=== PATIENT | male | born 1955 | race Caucasian/White ===

== ENCOUNTER → 2021-04-14 10:11 | Outpatient (CLI) | payer MEDICARE, SELFPAY | PROVIDERS: Visit Provider Surgery | DX: Z01.812 Encounter for preprocedural laboratory examination (principal); Z11.52 Encounter for screening for COVID-19 | CPT/HCPCS: C9803; U0003; U0005 ==

== ENCOUNTER 2022-06-05 13:44 | Emergency (ER) | payer MEDICARE, SELFPAY ==
--- NOTE | 2022-06-05 13:46 | XR_ITS ---
FINAL REPORT CLINICAL HISTORY: Chronic left wrist pain FINDINGS: LEFT WRIST Three views demonstrate no acute fracture or dislocation. Moderate and severe degenerative changes are seen at the radial aspect of the wrist. The soft tissues are unremarkable. IMPRESSION: Degenerative change with no acute bony abnormality. Reviewed, Interpreted and Dictated by Ebenezer Foreman III, MD Transcribed by Katherin Santiago Authenticated and [facility]
[2022-06-05 14:36] VITALS: BP 124/85; PULSE 79; RESP 20; TEMP 36.4; O2SAT 99; BMI 27.6
--- NOTE | 2022-06-05 14:49 | EXP.UTC ---
Discharge Plan Disposition Patient Disposition: Home, Self-Care Condition: Good Prescriptions Prescriptions: New colchicine [Colcrys] 0.6 mg tablet 0.6 mg PO DIRECTED Qty: 3 0RF Rx Instructions: Take 1.2mg (2 Tablets) now then wait one hour and take 0.6mg (1 tab) Referrals Follow up/Referrals: Provider,Referral, [Primary Care Provider] - See instructions Activity Restrictions/Add. Instructions Additional Instructions/Restrictions: Take medication as prescribed Follow up with your Family Doctor at 1:40 tomorrow Return if needed Straight to ER if any life threatening symptoms or worsening of symptoms Clinical Impressions Clinical Impression: Pseudogout Instructions Patient Instructions: Gout, DI for Gout, Colchicine Discharge ED Provider: Maddie Santacruz [facility] General Stated complaint: LT wrist pain no accident Mode of Arrival: Ambulatory Source of Information: Patient Limitations: No Limitations Time Seen by Provider: 06/05/22 14:49 Description of Symptoms (Recalled from Triage Doc. by RN): pt c/o severe sharp (8/10) L wrist pain that radiates up to his LFA. pt denies any injurty. pt does state that he sleeps with his hand behind his head with his wrist bent at a 90 degree angle. pt states is unable to use his hand or arm without excrutiating pain. ongoing since last night. HEENT Symptoms (Recalled from RN notes): No Resp Symptoms (Recalled from RN notes): No Skin Symptoms (Recalled from RN notes): No MS Symptoms (Recalled from RN notes): Yes Functional Status (Recalled from RN notes): wnl History of Present Illness Provider Complaint: Patient state that he started having pain in his left wrist about 3 days ago but last night it got worse States that he has been having pain in his left wrist with movement States that he hasnt falling or anything but has severe pain with movement State that sometimes he does sleep with his hand behind his head and wrist bent not sure if that may have caused it Related Data Previous Rx's Medication Instructions Recorded colchicine 0.6 mg tablet (Colcrys) 0.6 mg PO DIRECTED #3 tabs 06/05/22 Allergies Allergy/AdvReac Type Severity Reaction Status Date / Time Sulfa (Sulfonamide Allergy Verified 06/05/22 14:41 Antibiotics) Worker's Comp Is this a Worker's Comp case?: No [facility] Disclaimer: The information contained in this section may have been updated after the patient was seen, as this information can be updated by other users. Medical History (Updated 06/05/22 @ 16:30 by Maddie Santacruz APRN) Hypertension Liver disease Social History Smoking Status: Unknown if ever smoked alcohol intake: never current occupational status: unemployed Travel in the last 8 weeks: None ROS Obtained: Yes All systems reviewed & no additional complaints except as documented and Yes Systems reviewed as appropriate & no additional complaints except as documented Constitutional Constitutional: Reports system reviewed and no additional complaints, except as documented and Reports as per HPI ENT Ears, Nose, Mouth, and Throat: Reports system reviewed and no additional complaints, except as documented and Reports as per HPI Cardiovascular Cardiovascular: Reports system reviewed and no additional complaints, except as documented and Reports as per HPI Respiratory Respiratory: Reports system reviewed and no additional complaints, except as documented and Reports as per HPI Musculoskeletal Musculoskeletal: Reports system reviewed and no additional complaints, except as documented and Reports as per HPI Comments: pain with movement in left wrist for 3 days worse last night Physical Exam General General appearance: alert and in no apparent distress Respiratory Respiratory exam: Present normal lung sounds bilaterally; Absent respiratory distress or wheezes Cardiovascular Cardiovascular exam: Present regular rate, normal rhythm and normal heart sound
--- NOTE | 2022-06-05 15:02 | CA_ITS ---
FINAL REPORT TECHNIQUE: Graded compression, spectral analysis and ultrasound images of the venous system of the upper extremity were obtained. CLINICAL HISTORY: RULE OUT BLOOD CLOT IN WRIST. Patient states left wrist began hurting 3 days ago with no known trauma or IV/needle sticks. He states he sleeps with his wrist in awkward position. Edema is noted in left wrist and hand. Patient had a difficult time tolerating exam secondary to pain. FINDINGS: The jugular vein, subclavian vein, axillary vein, brachial vein, cephalic vein and basilic venous system are fully compressible and demonstrate no evidence of thrombosis. IMPRESSION: No evidence of thrombosis of the venous system of the left upper extremity. Reviewed, Interpreted and Dictated by Ebenezer Foreman III, MD Transcribed by Elieser Jaramillo Authenticated and . [facility]
[2022-06-05 15:52] LABS: Uric Acid 7.7 mg/dl (3.5-8.5)
[2022-06-05 16:32] VITALS: BP 124/85; PULSE 79; RESP 20; TEMP 36.4
== END 2022-06-05 16:34 | disposition home or self-care (01) ==
PROVIDERS: Emergency Provider Nurse Practitioner
DX: M11.20 Other chondrocalcinosis, unspecified site (principal); I10 Essential (primary) hypertension
CPT/HCPCS: 73110; 84550; 93971; 99204; 99212; G0463

== ENCOUNTER 2022-06-19 14:30 | Emergency (ER) | payer MEDICARE, SELFPAY ==
[2022-06-19] VITALS (8 sets, daily range): BP systolic 96–119; BP diastolic 56–77; PULSE 74–95; RESP 16–18; TEMP 36.7–36.8; O2SAT 95–100; BMI 27.3
--- NOTE | 2022-06-19 15:10 | CA_ITS ---
FINAL REPORT TECHNIQUE: Graded compression, spectral analysis and ultrasound images of the venous system of the upper extremity were obtained. CLINICAL HISTORY: Gout with pain, swelling FINDINGS: The jugular vein, subclavian vein, axillary vein, brachial vein, cephalic vein and basilic venous system are normal, fully compressible and demonstrate no evidence of thrombosis. IMPRESSION: No evidence of thrombosis of the venous system of the left upper extremity. Reviewed, Interpreted and Dictated by Dominique Parekh MD Transcribed by Sulema Jc Authenticated and [facility]
--- NOTE | 2022-06-19 15:14 | XR_ITS ---
FINAL REPORT CLINICAL HISTORY: pain, swelling FINDINGS: Three views show no evidence of acute displaced fracture or dislocation of the visualized bony architecture. Generalized osteopenia. Questionable erosions of the 2nd DIP joint. Questionable erosions of the proximal triquetrum. Severe degenerative change of the 1st CMC joint. 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 Reviewed, Interpreted and Dictated by Dominique Parekh MD Transcribed by Elieser Jaramillo Authenticated and [facility]
--- NOTE | 2022-06-19 15:14 | XR_ITS ---
FINAL REPORT TECHNIQUE: 3 views CLINICAL HISTORY: pain, swelling COMPARISON: June 05, 2022 FINDINGS: 3 views of the left wrist were obtained. Generalized osteopenia. There is no acute fracture or dislocation. Questionable new erosions of the proximal triquetrum. Severe degenerative change of the 1st CMC joint. IMPRESSION: Questionable new erosions of the proximal triquetrum. Severe degenerative change of the 1st CMC joint. Reviewed, Interpreted and Dictated by Dominique Parekh MD Transcribed by Elieser Jaramillo Authenticated and [facility]
--- NOTE | 2022-06-19 15:24 | HMH.EDGENADL ---
Discharge Plan Disposition Chief Complaint: PAIN Prescriptions Prescriptions: No Action colchicine [Colcrys] 0.6 mg tablet 0.6 mg PO DIRECTED Qty: 3 0RF Rx Instructions: Take 1.2mg (2 Tablets) now then wait one hour and take 0.6mg (1 tab) Referrals Follow up/Referrals: Eduardo Mcpherson [Primary Care Provider] - See instructions Discharge ED Provider: Alejandra Alicia General Adult HPI General Chief complaint: PAIN Stated complaint: Possible gout LT hand Time Seen by Provider: 06/19/22 14:54 Mode of Arrival: Ambulatory Source of Information: Patient Limitations: No Limitations Description of Symptoms (Recalled from ER Triage Doc. by RN): c/o left hand pain and swelling for 2 weeks, he has seen and [facility] for this issue, had x-ray and scans, has been told it was gout flare up, give anti inflammatory. States that nothing has helped the pain History of Present Illness HPI narrative: This patient is a 67-year-old male with a history of HIV that he reports is well controlled with undetectable viral load presenting to the emergency department for evaluation with concern for severe left hand pain. He has been evaluated at twice and in the urgent treatment center here once and had work-up that was reportedly concerning for gout according to the patient. On medical record review, he had a negative DVT ultrasound of the left upper extremity. At , he reports that they did x-rays. He denies any traumatic injuries. He denies any history of gout prior to this. He denies any fevers, chills, or infectious symptoms. He states that this pain has been there for approximately 12 days. He has tried various outpatient NSAIDs and narcotic pain medications with only minimal improvement. He states that it is worse at night, and given this he is having difficulty sleeping. It is worse with anything touching it, even the bedsheet. It feels like [id number] pricking him all over his hand. He wanted to be evaluated today to see if there are any other medication options to treat his pain. On record review, it looks like he was referred to sports medicine at [facility], but has not seen them at this point. Related Data Previous Rx's Medication Instructions Recorded colchicine 0.6 mg tablet (Colcrys) 0.6 mg PO DIRECTED #3 tabs 04/25/23 Allergies Allergy/AdvReac Type Severity Reaction Status Date / Time Sulfa (Sulfonamide Allergy Verified 06/05/22 14:41 Antibiotics) [facility] Disclaimer: The information contained in this section may have been updated after the patient was seen, as this information can be updated by other users. Medical History Hypertension Liver disease Social History Smoking Status: Never smoker alcohol intake: never current occupational status: unemployed Travel in the last 8 weeks: None ROS Obtained: Yes All systems reviewed & no additional complaints except as documented 14 point review of systems obtained and negative except as mentioned in HPI. Physical Exam General General appearance: alert and in no apparent distress Head Head exam: atraumatic and normocephalic Eye Eye exam: Present normal appearance, PERRL and EOMI ENT ENT exam: Present normal exam, normal oropharynx and mucous membranes moist Neck Neck exam: Present normal inspection, full ROM and trachea midline; Absent tenderness Chest Chest inspection: Present normal inspection and symmetric chest wall rise; Absent tenderness Respiratory Respiratory exam: Present normal lung sounds bilaterally; Absent respiratory distress or wheezes Cardiovascular Cardiovascular exam: Present regular rate and normal rhythm Abdominal Exam Abdominal exam: Present soft; Absent distention, tenderness or guarding Extremities Exam Extremities exam: Present tenderness and edema (Soft tissue swelling to the left hand
[2022-06-19 15:57] LABS: Basophils % 0.3 % (0.1-2.0); Eosinophils # 0.2 K/mm3 (0.0-0.4); Eosinophils % 4.8 % (0.1-12.0); Hematocrit 30.7 % (42.0-52.0); Hemoglobin 10.4 g/dL (14.1-18.0); Lymphocytes # 1.1 K/mm3 (0.7-4.5); Mean Corpuscular HGB Conc 33.9 g/dL (31.8-35.4); Mean Corpuscular Hemoglobin 32.4 pg (27.0-31.2); Mean Corpuscular Volume 95.7 fl (80-94); Mean Platelet Volume 8.6 fl (7.4-10.4); Monocytes # 0.4 K/mm3 (0.1-1.0); Monocytes % 7.5 % (1.7-9.3); Neutrophils % 64.4 % (37.0-80.0); Platelet Count 125 K/mm3 (142-424); Red Blood Count 3.21 M/mm3 (4.60-6.20); Red Cell Distribution Width 14.5 % (11.5-17.5); White Blood Count 4.7 K/mm3 (4.8-10.8)
--- NOTE | 2022-06-19 16:07 | PC.NURSE ---
pt is at xray
[2022-06-19 16:08] LABS: Alanine Aminotransferase 27 U/L (12-78); Albumin Level 3.2 g/dl (3.5-5.0); Albumin/Globulin Ratio 0.8 (1.1-1.8); Alkaline Phosphatase 137 U/L (38-126); Anion Gap 15.4 mEq/L (5-15); Aspartate Amino Transferase 26 U/L (17-59); Bilirubin,Total 1.1 mg/dl (0.2-1.3); Blood Urea Nitrogen 15 mg/dl (9-20); Calcium 8.3 mg/dl (8.4-10.2); Carbon Dioxide 24 mmol/L (22.0-30.0); Chloride 104 mmol/L (98-107); Creatinine Clearance Estimated 76 mL/min (50-200); Estimated Glomerular Filt Rate 67 ml/min (>60); GFR (African American) 81 ML/MIN (>60); Globulin 3.8 g/dL (1.3-3.2); Glucose 114 mg/dl (74-100); Potassium 3.4 mmoL/L (3.5-5.1); Sodium 140 mmol/L (136-145); Uric Acid 6.6 mg/dl (3.5-8.5)
[2022-06-19 17:09] LABS: Erythrocyte Sedimentation Rate > 140 mm/hr (0-20)
--- NOTE | 2022-06-19 17:28 | PC.NURSE ---
checked on pt states his pain was at 12 for arrival of er now pain is at 8 relayed message to nurse and er md, call light at bs
--- NOTE | 2022-06-19 17:36 | PC.NURSE ---
Contacted MDs Hand surgeon for consult
--- NOTE | 2022-06-19 18:19 | PC.NURSE ---
nothing needed at this time,call light at bs
== END 2022-06-19 19:34 | disposition short-term general hospital (02) ==
PROVIDERS: Emergency Provider Emergency Medicine; PCP Internal Medicine Cardiovascular Disease
DX: M79.642 Pain in left hand (principal); R22.32 Localized swelling, mass and lump, left upper limb
CPT/HCPCS: 73110; 73130; 80053; 84550; 85025; 85651; 86140; 93971; 96374; 96375; 99285; J2405

== ENCOUNTER 2022-07-02 13:47 | Outpatient (CLI) | payer MEDICARE, SELFPAY ==
[2022-07-02 13:56] VITALS: BMI 25.8
[2022-07-02 14:09] LABS: Chloride 111 mmol/L (98-107)
[2022-07-02 14:10] LABS: Potassium 3.6 mmoL/L (3.5-5.1); Sodium 140 mmol/L (136-145)
[2022-07-02 14:12] LABS: Alanine Aminotransferase 18 U/L (12-78); Aspartate Amino Transferase 46 U/L (17-59); Basophils % 0.5 % (0.1-2.0); Blood Urea Nitrogen 13 mg/dl (9-20); Creatinine Clearance Estimated 57 mL/min (50-200); Eosinophils # 0.2 K/mm3 (0.0-0.4); Eosinophils % 6.3 % (0.1-12.0); Estimated Glomerular Filt Rate 51 ml/min (>60); GFR (African American) 61 ML/MIN (>60); Hematocrit 30.2 % (42.0-52.0); Hemoglobin 9.9 g/dL (14.1-18.0); Lymphocytes # 1.1 K/mm3 (0.7-4.5); Lymphocytes % 32.9 % (10-50); Mean Corpuscular HGB Conc 32.8 g/dL (31.8-35.4); Mean Corpuscular Hemoglobin 31.4 pg (27.0-31.2); Mean Corpuscular Volume 95.8 fl (80-94); Mean Platelet Volume 7.8 fl (7.4-10.4); Monocytes # 0.3 K/mm3 (0.1-1.0); Monocytes % 7.5 % (1.7-9.3); Neutrophils # 1.8 K/mm3 (1.8-7.8); Neutrophils % 52.8 % (37.0-80.0); Platelet Count 134 K/mm3 (142-424); Red Blood Count 3.15 M/mm3 (4.60-6.20); Red Cell Distribution Width 15.2 % (11.5-17.5); White Blood Count 3.5 K/mm3 (4.8-10.8)
[2022-07-02 14:13] LABS: Albumin Level 3.3 g/dl (3.5-5.0); Albumin/Globulin Ratio 0.8 (1.1-1.8); Alkaline Phosphatase 100 U/L (38-126); Anion Gap 7.6 mEq/L (5-15); Bilirubin,Total 0.4 mg/dl (0.2-1.3); Calcium 8.5 mg/dl (8.4-10.2); Carbon Dioxide 25 mmol/L (22.0-30.0); Globulin 3.9 g/dL (1.3-3.2); Glucose 114 mg/dl (74-100); Total Protein,Serum 7.2 g/dl (6.3-8.2)
[2022-07-02 14:18] LABS: C-Reactive Protein 5.6 mg/L (0-4)
== END 2022-07-02 14:10 | disposition home or self-care (01) ==
LOC: INF 13:48
PROVIDERS: Internal Medicine Infectious Disease; PCP Internal Medicine Cardiovascular Disease
DX: L08.9 Local infection of the skin and subcutaneous tissue, unspecified (principal)
CPT/HCPCS: 36592; 80053; 85025; 86140

== ENCOUNTER 2022-07-10 10:00 | Outpatient (CLI) | payer MEDICARE, SELFPAY ==
[2022-07-10 10:03] VITALS: BMI 26.1
[2022-07-10 10:39] LABS: Basophils % 0.5 % (0.1-2.0); Eosinophils # 0.1 K/mm3 (0.0-0.4); Eosinophils % 4.6 % (0.1-12.0); Hematocrit 32.1 % (42.0-52.0); Hemoglobin 10.6 g/dL (14.1-18.0); Lymphocytes # 1.2 K/mm3 (0.7-4.5); Lymphocytes % 40.8 % (10-50); Mean Corpuscular HGB Conc 32.9 g/dL (31.8-35.4); Mean Corpuscular Hemoglobin 31.1 pg (27.0-31.2); Mean Corpuscular Volume 94.5 fl (80-94); Mean Platelet Volume 8.4 fl (7.4-10.4); Monocytes # 0.2 K/mm3 (0.1-1.0); Monocytes % 6.7 % (1.7-9.3); Neutrophils # 1.4 K/mm3 (1.8-7.8); Neutrophils % 47.3 % (37.0-80.0); Platelet Count 84 K/mm3 (142-424); Red Cell Distribution Width 15.2 % (11.5-17.5); White Blood Count 2.9 K/mm3 (4.8-10.8)
[2022-07-10 10:50] LABS: Alanine Aminotransferase 15 U/L (12-78); Albumin Level 3.5 g/dl (3.5-5.0); Albumin/Globulin Ratio 0.9 (1.1-1.8); Alkaline Phosphatase 123 U/L (38-126); Anion Gap 14.4 mEq/L (5-15); Aspartate Amino Transferase 44 U/L (17-59); Bilirubin,Total 0.7 mg/dl (0.2-1.3); Blood Urea Nitrogen 8 mg/dl (9-20); Calcium 8.5 mg/dl (8.4-10.2); Carbon Dioxide 24 mmol/L (22.0-30.0); Chloride 106 mmol/L (98-107); Creatinine Clearance Estimated 80 mL/min (50-200); Estimated Glomerular Filt Rate 97 ml/min (>60); GFR (African American) 117 ML/MIN (>60); Glucose 119 mg/dl (74-100); Potassium 3.4 mmoL/L (3.5-5.1); Sodium 141 mmol/L (136-145); Total Protein,Serum 7.5 g/dl (6.3-8.2)
[2022-07-10 11:01] LABS: C-Reactive Protein 2.6 mg/L (0-4)
== END 2022-07-10 10:30 | disposition home or self-care (01) ==
LOC: INF 10:00
PROVIDERS: Internal Medicine Infectious Disease; PCP Internal Medicine Cardiovascular Disease
DX: L08.9 Local infection of the skin and subcutaneous tissue, unspecified (principal); Z51.81 Encounter for therapeutic drug level monitoring
CPT/HCPCS: 36592; 80053; 85025; 86140

== ENCOUNTER 2022-07-11 10:24 | Outpatient (CLI) | payer MEDICARE, SELFPAY ==
[2022-07-11 10:27] VITALS: BMI 26.1
[2022-07-11 11:05] LABS: Basophils % 0.5 % (0.1-2.0); Eosinophils # 0.2 K/mm3 (0.0-0.4); Eosinophils % 4.7 % (0.1-12.0); Hematocrit 32.8 % (42.0-52.0); Hemoglobin 10.6 g/dL (14.1-18.0); Lymphocytes # 1.4 K/mm3 (0.7-4.5); Lymphocytes % 41.7 % (10-50); Mean Corpuscular HGB Conc 32.4 g/dL (31.8-35.4); Mean Corpuscular Hemoglobin 31.3 pg (27.0-31.2); Mean Corpuscular Volume 96.8 fl (80-94); Mean Platelet Volume 8.8 fl (7.4-10.4); Monocytes # 0.2 K/mm3 (0.1-1.0); Monocytes % 6.4 % (1.7-9.3); Neutrophils # 1.5 K/mm3 (1.8-7.8); Neutrophils % 46.6 % (37.0-80.0); Platelet Count 81 K/mm3 (142-424); Red Blood Count 3.39 M/mm3 (4.60-6.20); Red Cell Distribution Width 15.3 % (11.5-17.5); White Blood Count 3.3 K/mm3 (4.8-10.8)
== END 2022-07-11 10:30 | disposition home or self-care (01) ==
LOC: INF 10:24
PROVIDERS: PCP Internal Medicine Cardiovascular Disease; Visit Provider Internal Medicine Cardiovascular Disease
DX: L08.9 Local infection of the skin and subcutaneous tissue, unspecified (principal); Z51.81 Encounter for therapeutic drug level monitoring; Z45.2 Encounter for adjustment and management of vascular access device
CPT/HCPCS: 36592; 85025

== ENCOUNTER 2022-07-16 09:51 | Outpatient (CLI) | payer MEDICARE, SELFPAY ==
[2022-07-16 09:56] VITALS: BMI 25.8
[2022-07-16 10:25] LABS: Basophils % 0.4 % (0.1-2.0); Chloride 107 mmol/L (98-107); Eosinophils # 0.1 K/mm3 (0.0-0.4); Eosinophils % 4.4 % (0.1-12.0); Hematocrit 31.9 % (42.0-52.0); Hemoglobin 10.7 g/dL (14.1-18.0); Lymphocytes # 1.3 K/mm3 (0.7-4.5); Lymphocytes % 48.4 % (10-50); Mean Corpuscular HGB Conc 33.4 g/dL (31.8-35.4); Mean Corpuscular Hemoglobin 31.3 pg (27.0-31.2); Mean Corpuscular Volume 93.8 fl (80-94); Mean Platelet Volume 8.9 fl (7.4-10.4); Monocytes # 0.2 K/mm3 (0.1-1.0); Monocytes % 6.7 % (1.7-9.3); Neutrophils # 1.1 K/mm3 (1.8-7.8); Neutrophils % 40.2 % (37.0-80.0); Platelet Count 55 K/mm3 (142-424); Red Cell Distribution Width 15.2 % (11.5-17.5); White Blood Count 2.8 K/mm3 (4.8-10.8)
[2022-07-16 10:26] LABS: Potassium 3.6 mmoL/L (3.5-5.1); Sodium 141 mmol/L (136-145)
[2022-07-16 10:28] LABS: Alanine Aminotransferase 14 U/L (12-78); Alkaline Phosphatase 113 U/L (38-126); Aspartate Amino Transferase 42 U/L (17-59); Bilirubin,Total 0.8 mg/dl (0.2-1.3); Blood Urea Nitrogen 11 mg/dl (9-20); Creatinine Clearance Estimated 79 mL/min (50-200); Estimated Glomerular Filt Rate 97 ml/min (>60); GFR (African American) 117 ML/MIN (>60)
[2022-07-16 10:29] LABS: Albumin Level 3.6 g/dl (3.5-5.0); Albumin/Globulin Ratio 0.9 (1.1-1.8); Anion Gap 10.6 mEq/L (5-15); Carbon Dioxide 27 mmol/L (22.0-30.0); Glucose 102 mg/dl (74-100); Total Protein,Serum 7.6 g/dl (6.3-8.2)
[2022-07-16 10:34] LABS: C-Reactive Protein 1.6 mg/L (0-4)
== END 2022-07-16 10:30 | disposition home or self-care (01) ==
LOC: INF 09:52
DX: Z51.81 Encounter for therapeutic drug level monitoring (principal)
CPT/HCPCS: 36592; 80053; 85025; 86140

== ENCOUNTER → 2022-07-24 09:45 | Outpatient (CLI) | payer MEDICARE, SELFPAY ==
[2022-07-24 10:21] LABS: Adenovirus F 40/41, stool Not Detected (NotDetected); Astrovirus Not Detected (NotDetected); Campylobacter Not Detected (NotDetected); Clostridium Difficile A/B, PCR Not Detected (NotDetected); Cryptosporidium Not Detected (NotDetected); Cyclospora Cayetanesis Not Detected (NotDetected); Entamoeba histolytica Not Detected (NotDetected); Enteroaggregative E coli Not Detected (NotDetected); Enteropathogenic E coli Not Detected (NotDetected); Enterotoxigenic E coli Not Detected (NotDetected); Giardia lamblia Not Detected (NotDetected); Norovirus Not Detected (NotDetected); Plesimonas Shigalloides, PCR Not Detected (NotDetected); Rotavirus A Not Detected (NotDetected); Salmonella, PCR Not Detected (NotDetected); Sapovirus Not Detected (NotDetected); Shiga-like toxin E coli Not Detected (NotDetected); Shigella Enterovasive E coli Not Detected (NotDetected); Vibrio Cholerae Not Detected (NotDetected); Vibrio, PCR Not Detected (NotDetected); Yersinia Entercolitica, PCR Not Detected (NotDetected)
[2022-07-31 15:27] LABS: Calprotectin, Fecal 332 ug/g (0-120)
== END ==
PROVIDERS: PCP Nurse Practitioner; Visit Provider Nurse Practitioner Family
DX: R15.9 Full incontinence of feces (principal); R19.5 Other fecal abnormalities
CPT/HCPCS: 83993; 87177; 87493; 87506

== ENCOUNTER 2022-09-14 14:00 | Outpatient (RCR) | payer MEDICARE, SELFPAY | END 2022-09-14 14:05 | disposition home or self-care (01) | LOC: OT 14:00 | PROVIDERS: Visit Provider Physician Assistant Medical | DX: M25.532 Pain in left wrist (principal); M00.9 Pyogenic arthritis, unspecified | CPT/HCPCS: 97010; 97014; 97018; 97035; 97110; 97140; 97164; 97165; 97530; G0283 ==

== ENCOUNTER 2024-10-16 10:14 | Emergency (ER) | payer MEDICARE, SELFPAY ==
--- OUTSIDE RECORDS SUMMARY | 2024-08-24 13:00 | XMS_ITS | Encounter Summary ---
Author Organization [facility] Address [address] [place] [address] Care Team Providers Care Client Care Consultant Name Role Phone Lashay Maynard Unavailable Unavailable Gracy Aguilar MD Unavailable [phone] Chuck Kaplan Unavailable [phone] Vandana Urbina MD Primary Care Provider [phone] Maria Elena Lizarraga Unavailable [phone] Reason for Visit * Reason Comments low testosterone IM Injection Encounter Details Date Type Department Care Team (Latest Contact Info) Description 08/24/2024 1:00 PM EDT Clinical Support [facility] Urology [address] [place] [address] An Matthew LPN [facility] Low testosterone in male (Primary Dx) Social History Tobacco Use Types Packs/Day Years Used Date Smoking Tobacco: Never Passive Smoke Exposure: Never Smokeless Tobacco: Never Tobacco Cessation:Counseling Given: Not Answered Alcohol Use Standard Drinks/Week Comments Yes 2 (1 standard drink = 0.6 oz pur e alcohol) occasional Humiliation, Afraid, Rape, and Kick questionnair e Answer Date Recorded Within the last year, have y ou been afraid of your partner or ex-partner? No 05/05/2024 Within the last year, have y ou been humiliated or emotionally abused in other ways by your partner or ex-partner? No Within the last year, have y ou been kicked, hit, slapped, or otherwise physically hurt by your partner or ex-partner? No 05/05/2024 Within the last year, have y ou been raped or forced to have any kind of sexual activity by your partner or ex-partner? No 05/05/2024 Social Connection and Isolation Panel Answer Date Recorded In a typical week, how many times do you talk on the phone with family, friends, or neighbors? More than three times a week 05/02/2023 How often do you get togethe r with friends or relatives? More than three times a week 05/02/2023 How often do you attend chur ch or restorationism services? Never 05/02/2023 Do you belong to any clubs o r organizations such as amish groups, unions, fraternal or athletic groups, or school groups? No 05/02/2023 How often do you attend meet ings of the clubs or organizations you belong to? Never 05/02/2023 Marital Status Not on file 05/02/2023 AUDIT-C Answer Date Recorded Q1: How often do you have a drink containing alc ohol? 2-4 times a month 05/02/2023 Q2: How many drinks containi ng alcohol do you have on a typical day when you are drinking? 1 or 2 05/02/2023 Q3: How often do you have si x or more drinks on one occasion? Never 05/02/2023 PHQ-2 Answer Date Recorded Patient Health Questionnaire-2 Score 0 08/24/2024 [facility] - Occupational Stress Questionnaire Answer Date Recorded Do you feel stress - tense, restless, nervous, or anxious, or unable to sleep at night because your mind is troubled all the time - these days? Not at all 05/02/2023 Exercise Vital Sign Answer Date Recorde d On average, how many days pe r week do you engage in moderate to strenuous exercise (like a brisk walk)? 3 days 05/02/2023 On average, how many minutes do you engage in exercise at this level? 30 min 05/02/2023 Hunger Vital Sign Answer Date Recorded Within the past 12 months, y ou worried that your food would run out before you got the money to buy more. Never true 05/06/19 Within the past 12 months, t he food you bought just didn't last and you didn't have money to get more. Never true 05/05/2024 PRAPARE - Transportation Answer Date Re corded In the past 12 months, has l ack of transportation kept you from medical appointments or from getting medications? No 04/12 In the past 12 months, has l ack of transportation kept you from meetings, work, or from getting things needed for daily living? No 05/05/2024 Housing Stability Vital Sign Answer Solomon e Recorded In the last 12 months, was t here a time when you were not able to pay the mortgage or rent on time? No 11/05/2023 In the last 12 months, how many places have you lived? 1 11/05/2023 In the last 12 months, was t here a time when you did not have a steady place to sleep or slept in a mcfp (including now)? No 11/05/2023 PHQ-9 Answer Date Recorded Patient Health Questionnaire-9 Score 0 05/12/2024 Housing Stability Vital Sign Answer Solomon e Recorded In the last 12 months, was t here a time when you were not able to pay the mortgage or rent on time? No 05/05/2024 In the past 12 months, how m any times have you moved where you were living? 0 05/05/2024 At any time in the past 12 m [facility], were you homeless or living in a mcfp (including now)? No 05/05/2024 Safety and Environment Answer Date Helder rded Do you worry that your child may have been physically abused? No 05/05/2024 Do you worry that your child may have been sexua lly abused? No 05/05/2024 Are there any guns kept in o r around your home or where your child spends time? No 05/05/2024 Guns Unloaded or Locked Away Not on file CAGE ASSESSMENT Answer Date Recorded Cage unable to access Not on file 06/20/2022 Maximum number of drinks you had on a given occasion in the last month? 0 drinks 06/20/2022 How many alcoholic Beverages do you typically drink in a week? 0 - 7 per week 06/20/2022 Have you ever felt you should CUT down on your d rinking? 0 06/20/2022 Have you been ANNOYED by peo ple criticizing your drinking? 0 06/20/2022 Have you felt GUILTY about your drinking? 0 06/20/2022 Have you had a drink first t mina in the morning ([employer]) to steady your nerves or to get rid of a hangover? 0 06/20/2022 CAGE Questionnaire Score 0 023 Utilities Answer Date Recorded In the past 12 months has th [employer], gas, oil, or water [employer] threatened to shut off services in your home? No 05/05/2024 PHQ-2A Answer Date Recorded Patient Health Questionnaire-2 Score 0 12/27/2022 Sex and Gender Information Value Date Recorded Sex Assigned at Not on file Legal Sex Male 8:00 PM EDT Gender Identity Not on file Sexual Orientation Not on file documented as of this encounter Last Filed Vital Signs Vital Sign Reading Time Taken Comments Blood Pressure 98/61 08/24/2024 1:11 PM EDT Pulse 58 08/24/2024 1:11 PM EDT Temperature - - Respiratory Rate 14 08/24/2024 1:11 PM EDT Oxygen Saturation 98% 08/24/2024 1:11 PM EDT Inhaled Oxygen Concentration - - Weight 81.2 kg (179 lb) 08/24/2024 1:11 PM EDT Height 172.7 cm (5' 8 ) 08/24/2024 1:11 PM EDT Body Mass Index 27.22 08/24/2024 1:11 PM EDT documented in this encounter Functional Status * Are you deaf or do you have serious difficulty hearing? Answer Date of Assessment Author No 06/28/2022 5:50 PM EDT Tabatha Sosa RN * Are you blind or do you have serious difficulty seeing, even when wearing glasses? Answer Date of Assessment Author No 06/28/2022 5:50 PM EDT Tabatha Sosa RN * Do you have serious difficulty walking or climbing stairs? Answer Date of Assessment Author No 06/28/2022 5:50 PM EDT Tabatha Sosa RN * Because of a physical, mental, or emotional condition, do you have serious difficulty doing errandsalone such as visiting the doctor? Answer Date of Assessment Author No 06/28/2022 5:50 PM EDT Tabatha Sosa RN * Over the past 2 weeks, how often have you been bothered by any of the following problems? Question Answer Date of Assessment Author Little interest or pleasure in doing things Not at all 08/24/2024 1:12 PM EDT An Matthew LPN Feeling down, depressed, or hopeless Not at all 08/24/2024 1:12 PM EDT An Matthew LPN Patient Health Questionnaire-2 Score 0 08/24/2024 1:12 PM EDT An Matthew LPN documented as of this encounter Mental Status * Because of a physical, mental, or emotional condition, do you have serious difficulty concentrating, remembering, or making decisions? (5 years old or older) Answer Entry Date Author No 06/28/2022 5:50 PM EDT Tabatha Sosa RN documented in this encounter Miscellaneous Notes * Progress Notes - An Matthew LPN - 08/24/2024 1:00 PM EDT Mr. Mauricio Barahona is a 69 year old male with a history of low testosterone. He presents today for his testosterone IM injection. Mr. Barahona stated he does not feel a difference since he started his injections and was told that this would be his last injection until he see Nati Judge APRN in 3 months. Mr. Barahona brought in his Testosterone Cypionate medication with him to his appointment. .25ml/5mg was drawn up and injected into his right ventrogluteal muscle by cleaning the area with an alcohol wipe. Patient tolerated without complaints. Plan: Continue as schedule for next visit with Nati Judge APRN in 3 months. Call the clinic with any questions or concerns at [phone] documented in this encounter Plan of Treatment Upcoming Encounters Date Type Department Care Team (Late st Contact Info) Description 10/19/2024 1:20 PM EDT Office Visit [facility] Medicine Specialties [address] [place] [address] Potter, Clara R, PA [address] [place] [address] 10/27/2024 10:30 AM EDT Office Visit [facility] [address] [facility] [address] [place] [address] 10/29/2024 9:30 AM EDT Office Visit [facility] Medicine Specialties [address] [place] [address] Nikkie Aguirre PA [address] [place] [address] 11/10/2024 11:00 AM EDT Office Visit [facility] Internal Medicine [address] [place] [address] Vandana Urbina MD [address] [place] [address] 11/16/2024 10:30 AM EDT Office Visit [facility] Urology [address] [place] [phone] Maria Elena Lizarraga PA [address] [place] [address] 11/19/2024 10:00 AM EDT Clinical Support [facility] Lab [address] [place] [address] 11/26/2024 9:50 AM EDT Office Visit [facility] Urology [address] [place] [phone] Nati Judge, ANIMAL BIOLOGIST, DNP [address] [place] [address] 12/08/2024 8:30 AM EDT Procedure Visit [facility] Orthopaedic Surgery & Sports Medicine [address] [place] [phone] Jonathan Armando MD [address] [place] [address] 12/17/2024 3:00 PM EST Office Visit [facility] General Surgery [address] [place] [address] Germain Botello MD [address] [place] [address] 01/11/2025 9:30 AM EST Clinical Support [facility] Lab [address] [place] [address] 01/18/2025 10:50 AM EST Office Visit [facility] Urology [address] [place] [address] Nati Judge P, ANIMAL BIOLOGIST, DNP [address] [place] [address] 01/28/2025 1:30 PM EST Office Visit [facility] [address] [facility] [address] [place] [address] Gracy Aguilar MD [address] [facility] [address] [place] [address] 03/15/2025 1:15 PM EST Office Visit [facility] [address] [place] [address] Renee Graham S, OD [address] [place] [address] 06/01/2025 11:30 AM EDT Clinical Support [place] [facility] [address] [place] [address] 06/08/2025 1:40 PM EDT Office Visit [facility] Nephrology, Bone & Mineral Metabolism [address], [address] [place] [address] Marco Brandt MD [address] [place] [address] documented as of this encounter Goals Goal Patient Goal Type Associated Problems Recent Progress Patient-Stated? Author Patient to remain active in HIV care Care Plan Treatment Adherence On track( 1:48 PM EDT) Lisette Tom Patient to remain active on part B services/RW shama-eligible Care Plan Treatment Adherence On track( 1:48 PM EDT) Lisette Tom Improve Knee Pain Care Plan Treatment Adherence On track( 1:51 PM EDT) Lisette Tom Note: Patient continues to take excellent care of his knee pain. He receives Gel Knee injections 2x per year. He reports having no knee pain. documented as of this encounter Visit Diagnoses Diagnosis Low testosterone in male- Primary documented in this encounter Additional Health Concerns Active Problems Noted Date Diagnosed Date Treatment Adherence 09/02/2024 Assessment Noted Time PHQ-9 Depression Total Score: 0 05/13/19 10:43 AM EDT A fall risk assessment has been complete d for the patient 08/24/2024 1:12 PM EDT A Body Mass Index follow-up plan has been documented for the patient 08/25/2024 7:44 AM EDT documented as of this encounter Care Teams Client Care Consultant Relationship Specialty Start Date End Date Vadnana Urbina MD [address] [place] [address] PCP - General Internal Medicine 05/02/23 [place] [address] [employer] Wedding Coordinator 05/31/21 Gracy Aguilar MD [address] [facility] [address] [place] [phone] Consulting Physician Infectious Diseases 03/26/23 Chuck Kaplan PA [address] [facility] [address] [place] [phone] Physician Physical Therapist Center Manager Infectious Diseases 03/26/23 Maria Elena Lizarraga PA [address] [facility] [address] [place] [address] Physician Physical Therapist Center Manager Urology 03/09/24 documented as of this encounter
--- OUTSIDE RECORDS SUMMARY | 2024-09-01 09:00 | XMS_ITS | Encounter Summary ---
Author Organization [facility] Address [address] [place] [address] Care Team Providers Care Macroeconomics Professor Name Role Phone Lashay Maynard Unavailable Unavailable Gracy Aguilar MD Unavailable [phone] Chuck Kaplan Unavailable [phone] Vandana Urbina MD Primary Care Provider [phone] Maria Elena Lizarraga Unavailable [phone] Reason for Referral * Other Medical (Routine) - Pending Review Specialty Diagnoses / Procedures Referred By Contac t Referred To Contact Diagnoses Primary osteoarthritis of both knees Procedures Injection - Large Joint: bilateral knee Jonathan Armando MD [address] [place] [address] Phone: tel: fax: Referral ID Status Reason Start Date Expiration Date V isits Requested Visits Authorized [id number] Pending Review 09/01/2024 03/03/2026 1 1 Reason for Visit * Reason Comments Follow-up Follow-up Encounter Details Date Type Department Care Team (Late st Contact Info) Description 09/01/2024 9:00 AM EDT Procedure Visit [facility] Orthopaedic Surgery & Sports Medicine [address], [address] [place] [address] Jonathan Armando MD [address] [place] [address] Primary osteoarthritis of both knees (Primary Dx) Social History Tobacco Use Types Packs/Day Years Used Date Smoking Tobacco: Never Passive Smoke Exposure: Never Smokeless Tobacco: Never Alcohol Use Standard Drinks/Week Comments Yes 2 [...] often do you attend chur ch or tenriism services? Never 05/02/2023 Do you belong to any clubs o r organizations such as baptist groups, unions, fraternal or athletic groups, or [...] Date Recorded Patient Health Questionnaire-2 Score 0 09/08/2024 [place] [facility] - Occupational Stress Questionnaire Answer Date Recorded [...] place to sleep or slept in a care home (including now)? No 11/05/2023 PHQ-9 Answer Date Recorded Patient Health Questionnaire-9 Score 0 09/07/2024 Housing Stability Vital Sign Answer Solomon e Recorded In the last 12 months, was t here a time when you were not able to pay the mortgage or rent on time? No 05/05/2024 In the past 12 months, how m any times have you moved where you were living? 0 05/05/2024 At any time in the past 12 m [facility], were you homeless or living in a care home (including now)? No 05/05/2024 Safety and Environment [...] drink first t mina in the morning (EYE-QUALITY MANAGEMENT NURSE) to steady your nerves or to get rid of a hangover? 0 06/20/2022 CAGE Questionnaire Score 0 023 Utilities Answer Date Recorded In the past 12 months has th [employer] electric, gas, oil, or water company threatened to shut off services in your [...] Sign Reading Time Taken Comments Blood Pressure 116/72 09/01/2024 8:35 AM EDT Pulse - - Temperature - - Respiratory Rate - - Oxygen Saturation - - Inhaled Oxygen Concentration - - Weight 81.6 kg (180 lb) 09/01/2024 8:35 AM EDT Height 172.7 cm (5' 8 ) 09/01/2024 8:35 AM EDT Body Mass Index 27.37 09/01/2024 8:35 AM EDT documented in this encounter Functional Status * Are you deaf or do you have serious difficulty hearing? Answer Date of Assessment Author No 06/28/2022 5:50 PM Tabatha Mcintyre RN * Are you blind or do you have serious difficulty seeing, even when wearing glasses? Answer Date of Assessment Author No 06/28/2022 5:50 PM Tabatha Mcintyre RN * Do you have serious difficulty walking or climbing stairs? Answer Date of Assessment Author No 06/28/2022 5:50 PM Tabatha Mcintyre RN * Because of a physical, mental, or emotional condition, do you have serious difficulty doing errandsalone such as visiting the doctor? Answer Date of Assessment Author No 06/28/2022 5:50 PM Tabatha Mcintyre RN * Over the past 2 weeks, how often have you been bothered by any of the following problems? Question Answer Date of Assessment Author Little interest or pleasure in doing things Not at all 09/08/2024 10:56 AM Dede Sykes Feeling down, depressed, or hopeless Not at all 09/08/2024 10:56 AM Dede Sykes Patient Health Questionnaire -2 Score 0 09/08/2024 10:56 AM Dede Sykes * Question Answer Date of Assessment Author Trouble falling or staying asleep, or sleeping too much Not at all 09/07/2024 10:25 AM Olu Hua Feeling tired or having louise le energy Not at all 09/07/2024 10:25 AM Brent Li Poor appetite or overeating Not at all 09/07/2024 10 :25 AM [address] Li Feeling bad about yourself - or that you are a failure or have let yourself or your family down Not at all 09/07/2024 10:25 AM Olu Kaur Trouble concentrating on thi ngs, such as reading the newspaper or watching television Not at all 09/07/2024 10:25 AM Brent Li Moving or speaking so slowly that other people could have noticed? Or the opposite - being so fidgety or restless that you have been moving around a lot more than usual. Not at all 09/07/2024 10:25 AM Brent Li Thoughts that you would be better off or hurting yourself in some way Not at all 09/07/2024 10:25 AM EDT [address]i Guzman rd Patient Health Questionnaire -9 Score 0 09/07/2024 10:25 AM EDT Brent Guzman documented as of this encounter Mental Status * Because of a physical, mental, or emotional condition, do you have serious difficulty concentrating, remembering, or making decisions? (5 years old or older) Answer Entry Date Author No 06/28/2022 5:50 PM EDT Tabatha Sosa RN documented in this encounter Miscellaneous Notes * Progress Notes - Ravin Gloria MD - 09/01/2024 9:00 AM EDTAssociated Order(s): Injection - Large Joint: bilateral knee Post-Procedure Diagnose(s): Primary osteoarthritis of both knees Procedure Note Encounter Date: 09/01/2024 Chief Complaint: Bilateral knee pain Patient is a 69 yo male who presents due to bilateral knee pain who got good relief in the past from bilateral CSI Injection - Large Joint: bilateral knee Indications: pain Details: 22 G needle, ultrasound-guided superolateral approach Medications (Right): 80 mg Kenalog-40 40 MG/ML; 20 mg bupivacaine 0.5 %; 40 mg lidocaine 1 % Medications (Left): 80 mg Kenalog-40 40 MG/ML; 20 mg bupivacaine 0.5 %; 40 mg lidocaine 1 % Outcome: tolerated well, no immediate complications US Guided Procedure Note: Indication: Knee pain Procedure: Sonographically guided bilateral knee corticosteroid injection Informed Consent: Following denial of allergy and review of potential side effects and complications including, but not limited to, infection, allergic reaction, local tissue breakdown, systemic effects of corticosteroids, elevation of blood glucose, injury to soft tissue and/or nerves and seizure,the patient indicated understanding and agreed to proceed. Procedural pause conducted to verify: correct patient identity, procedure to be performed and, as applicable, correct side and site, correct patient position, availability of any special equipment orother special requirements. Justification for use of ultrasound guidance: The use of direct sonographic visualization of the needle (rather than a non-guided injection) was required to ensure accurate injection placement for diagnostic specificity, to maximize clinical efficacy and for safety purposes to minimize risk of bleeding or injury to nearby neurovascular structures. Technique: The procedure was carried out under sterile technique utilizing a sterile ultrasound transducer cover and sterile ultrasound gel. Pre-procedural scanning was performed to determine optimalneedle approach for the procedure. The patient was prepped and draped in the usual sterile fashion. Patient position: supine Approach: in plane Local anesthesia: 5 mL 1% Lidocaine Aspiration/Injection: Live sonographic guidance with a 12-5 mHz linear array transducer was used throughout the procedure. A 25g 2 inch needle was used for local anesthesia and was guided into the supra-patellar recess. After reconfirmation of needle placement 2cc 0.5% Ropivicaine and 1cc 40mg/mL Kenalog was guided into each supra-patellar recess. Post-Procedure Instructions: The patient tolerated the procedure well without complication and was discharged in good condition after a short observation period. The patient was instructed to avoid submerging the procedure site in water for 48-72 hours. The patient was instructed to contact me withany questions pertaining to the procedure and to inform me of the results of the procedure in approximately 7-10 days, as needed. Questions regarding general management should be directed to the patient's referring provider and the patient should keep all previously scheduled follow up appointments. Multiple fritz images were saved. Impression: Successful sonographically-guided bilateral knee injection. Procedure, treatment alternatives, risks and benefits explained, specific risks discussed. Consent was given by the patient. Immediately prior to procedure a time out was called to verify the correctpatient, procedure, equipment, community support worker and site/side marked as required. Patient was prepped and draped in the usual sterile fashion. Procedure, treatment alternatives, risks and benefits explained, specific risks discussed. Consent was given by the patient. Immediately prior to procedure a time out was called to verify the correctpatient, procedure, equipment, community support worker and site/side marked as required. Patient was prepped and draped in the usual sterile fashion. Assessment and Plan: Diagnosis Plan 1. Primary osteoarthritis of both knees After discussing risks and benefits, including but not limited to bleeding, infection and worseningpain, the patient wished to proceed with the procedure today. See procedure note. Post-injection care instructions were provided. Specific risks included pain, infection, bleeding, damage to surrounding structures, increased blood sugars. Follow-up as needed for repeat injection Electronically Signed by: Ravin Gloria MD - 09/01/2024 - 4:21 PM Cosigned by Jonathan Armando MD at 10/08/2024 12:13 PM EDT Associated attestation - Jonathan Armando MD - 10/08/2024 12:13 PM EDT I saw and evaluated the patient with the resident/fellow. I discussed the case with the resident/fellow and agree with the findings and plan as documented. and I was present for the entirety of the procedure(s). documented in this encounter Plan of Treatment Upcoming Encounters Date Type Department Care Team (Late st Contact Info) Description 10/19/2024 1:20 PM EDT Office Visit [facility] Medicine Specialties [address] [place] [address] Clara Bartholomew PA [address] [place] [address] 10/27/2024 10:30 AM EDT Office Visit [facility] [address] [place] [address] 10/29/2024 9:30 AM EDT Office Visit [facility] Medicine Specialties [address] [place] [address] Nikkie Aguirre PA [address] [place] [address] 11/10/2024 11:00 AM EDT Office Visit [facility] Internal Medicine [address] [place] [phone] Vandana Urbina MD [address] [place] [phone] 11/16/2024 10:30 AM EDT Office Visit [facility] Urology [address] [place] [address] Maria Elena Lizarraga PA [address] [place] [address] 11/19/2024 10:00 AM EDT Clinical Support [facility] [address] [place] [phone] 11/26/2024 9:50 AM EDT Office Visit [facility] Urology [address] [place] [address] Nati Judge, INFORMATICS SPECIALIST, VALERIO [address] [place] [address] 12/08/2024 8:30 AM EDT Procedure Visit [facility] Orthopaedic Surgery & Sports Medicine [address], [address] [place] [phone] Jonathan Armando MD [address] [place] [phone] 12/17/2024 3:00 PM EST Office Visit [facility] General Surgery [address] [place] [phone] Germain Botello MD [address] [place] [address] 01/11/2025 9:30 AM EST Clinical Support [facility] [address] [place] [phone] 01/18/2025 10:50 AM EST Office Visit [facility] Urology [address] [place] [address] Nati Judge P, INFORMATICS SPECIALIST, DNP [address] [place] [address] 01/28/2025 1:30 PM EST Office Visit [facility] [address] [place] [address] Gracy Aguilar MD [address] [facility] [address] [place] [address] 03/15/2025 1:15 PM EST Office Visit [facility] [address] [place] [address] Renee Graham S, OD [address] [place] [address] 06/01/2025 11:30 AM EDT Clinical Support [facility] [address] [place] [address] 06/08/2025 1:40 PM EDT Office Visit [facility] Nephrology, Bone & Mineral Metabolism [address], [address] [place] [address] Marco Brandt MD [address] [place] [address] documented as of this encounter Goals Goal Patient Goal Type Associated Problems Recent Progress Patient-Stated? Author Patient to remain active in HIV care Care Plan Treatment Adherence On track( 1:48 PM EDT) Lisette Tom Patient to remain active on part B services/RW shama-eligible Care Plan Treatment Adherence On track(06/25/2 024 1:48 PM EDT) No Lisette Haywood Improve Knee Pain Care Plan Treatment Adherence On track( 024 1:51 PM EDT) Lisette Tom Note: Patient continues to take excellent care of his knee pain. He receives Gel Knee injections 2x per year. He reports having no knee pain. documented as of this encounter Procedures Procedure Name Priority Date/Time Associated Diagnosis Comments MS ARTHROCENTESIS ASPIR&/INJ MAJOR JT/BURSA W/US Routine 09/01/2024 9:00 AM EDT Primary osteoarthritis of both knees documented in this encounter Results * MS ARTHROCENTESIS ASPIR&/INJ MAJOR JT/BURSA W/US (09/01/2024 9:00 AM EDT) Narrative Jonathan Armando MD - 09/01/2024 9:00 AM EDT Jonathan Armando MD 10/08/2024 12:13 PM Injection - Large Joint: bilateral knee Indications: pain Details: 22 G needle, ultrasound-guided superolateral approach Medications (Right): 80 mg Kenalog-40 40 MG/ML; 20 mg bupivacaine 0.5 %; 40 mg lidocaine 1 % Medications (Left): 80 mg Kenalog-40 40 MG/ML; 20 mg bupivacaine 0.5 %; 40 mg lidocaine 1 % Outcome: tolerated well, no immediate complications US Guided Procedure Note: Indication: Knee pain Procedure: Sonographically guided bilateral knee corticosteroid injection Informed Consent: Following denial of allergy and review of potential side effects and complications including, but not limited to, infection, allergic reaction, local tissue breakdown, systemic effects of corticosteroids, elevation of blood glucose, injury to soft tissue and/or nerves and seizure, the patient indicated understanding and agreed to proceed. Procedural pause conducted to verify: correct patient identity, procedure to be performed and, as applicable, correct side and site, correct patient position, availability of any special equipment or other special requirements. Justification for use of ultrasound guidance: The use of direct sonographic visualization of the needle (rather than a non-guided injection) was required to ensure accurate injection placement for diagnostic specificity, to maximize clinical efficacy and for safety purposes to minimize risk of bleeding or injury to nearby neurovascular structures. Technique: The procedure was carried out under sterile technique utilizing a sterile ultrasound transducer cover and sterile ultrasound gel. Pre-procedural scanning was performed to determine optimal needle approach for the procedure. The patient was prepped and draped in the usual sterile fashion. Patient position: supine Approach: in plane Local anesthesia: 5 mL 1% Lidocaine Aspiration/Injection: Live sonographic guidance with a 12-5 mHz linear array transducer was used throughout the procedure. A 25g 2 inch needle was used for local anesthesia and was guided into the supra-patellar recess. After reconfirmation of needle placement 2cc 0.5% Ropivicaine and 1cc 40mg/mL Kenalog was guided into each supra-patellar recess. Post-Procedure Instructions: The patient tolerated the procedure well without complication and was discharged in good condition after a short observation period. The patient was instructed to avoid submerging the procedure site in water for 48-72 hours. The patient was instructed to contact me with any questions pertaining to the procedure and to inform me of the results of the procedure in approximately 7-10 days, as needed. Questions regarding general management should be directed to the patient's referring provider and the patient should keep all previously scheduled follow up appointments. Multiple fritz images were saved. Impression: Successful sonographically-guided bilateral knee injection. Procedure, treatment alternatives, risks and benefits explained, specific risks discussed. Consent was given by the patient. Immediately prior to procedure a time out was called to verify the correct patient, procedure, equipment, community support worker and site/side marked as required. Patient was prepped and draped in the usual sterile fashion. Procedure, treatment alternatives, risks and benefits explained, specific risks discussed. Consent was given by the patient. Immediately prior to procedure a time out was called to verify the correct patient, procedure, equipment, community support worker and site/side marked as required. Patient was prepped and draped in the usual sterile fashion. us Jonathan Armando MD IN CLINIC/BEDSIDE ORDERABLES E dited Result - Final documented in this encounter Visit Diagnoses Diagnosis Primary osteoarthritis of both knees- Primary documented in this encounter Administered Medications Inactive Administered Medications - up to 3 most recent administrations Medication Order MAR Action Action Date Dose Rate Site bupivacaine (Marcaine) 0.5 % injection 20 mg 20 mg, Injection, Once PRN Procedure, 1 dose, Starting on Sat09/01/24 at 0900, Until Sat09/01/24 at 0900, RoutineIndications:Primary osteoarthritis of both knees Given 09/01/2024 9:00 AM EDT 20 mg bupivacaine (Marcaine) 0.5 % injection 20 mg 20 mg, Injection, Once PRN Procedure, 1 dose, Starting on Sat09/01/24 at 0900, Until Sat09/01/24 at 0900, RoutineIndications:Primary osteoarthritis of both knees Given 09/01/2024 9:00 AM EDT 20 mg lidocaine (Xylocaine) 1 % injection 40 mg 40 mg, Intra-articular, Once PRN Procedure, 1 dose, Starting on Sat09/01/24 at 0900, Until Sat09/01/24 at 0900, RoutineIndications:Primary osteoarthritis of both knees Given 09/01/2024 9:00 AM EDT 40 mg lidocaine (Xylocaine) 1 % injection 40 mg 40 mg, Intra-articular, Once PRN Procedure, 1 dose, Starting on Sat09/01/24 at 0900, Until Sat09/01/24 at 0900, RoutineIndications:Primary osteoarthritis of both knees Given 09/01/2024 9:00 AM EDT 40 mg triamcinolone acetonide (Kenalog-40) injection 80 mg 80 mg, Intra-articular, Once PRN Procedure, 1 dose, Starting on Sat09/01/24 at 0900, Until Sat09/01/24 at 0900, RoutineIndications:Primary osteoarthritis of both knees Given 09/01/2024 9:00 AM EDT 80 mg triamcinolone acetonide (Kenalog-40) injection 80 mg 80 mg, Intra-articular, Once PRN Procedure, 1 dose, Starting on Sat09/01/24 at 0900, Until Sat09/01/24 at 0900, RoutineIndications:Primary osteoarthritis of both knees Given 09/01/2024 9:00 AM EDT 80 mg documented in this encounter Additional Health Concerns Active Problems Noted Date Diagnosed Date Treatment Adherence 09/02/2024 Assessment Noted Time PHQ-9 Depression Total Score: 0 05/13/19 10:43 AM EDT A fall risk assessment has been complete d for the patient 09/01/2024 8:36 AM EDT A Body Mass Index follow-up plan has been documented for the patient 09/02/2024 12:09 PM EDT documented as of this encounter Care Teams Macroeconomics Professor Relationship Specialty Start Date End Date Vandana Urbina MD [address] [place] [phone] PCP - General Internal Medicine 05/02/23 [place] [address] Product Development Director Burrer Operator 05/31/21 Gracy Aguilar MD [facility] [facility] [address] [place] [address] Consulting Physician Infectious Diseases 03/26/23 Chuck Kaplan PA [facility] [facility] [address] [place] [address] Physician Traffic Control Signaler Infectious Diseases 03/26/23 Maria Elena Lizarraga PA [address] [place] [address] Physician Traffic Control Signaler Urology 03/09/24 documented as of this encounter
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
--- OUTSIDE RECORDS SUMMARY | 2024-09-08 11:00 | XMS_ITS | Encounter Summary ---
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 track( 024 1:48 PM EDT) Lisette Tom Improve Knee Pain Care Plan Treatment Adherence On track( 024 1:51 PM EDT) Lisette Tom Note: Patient continues to take excellent care of his knee pain. He receives Gel Knee injections 2x per year. He reports having no knee pain. documented as of this encounter Procedures Procedure Name Priority Date/Time Associated Diagnosis Comments HERPES SIMPLEX VIRUS (HSV) BY PCR Routine 09/08/2024 11:50 AM EDT Superficial ulcerative lesion ([facility]) documented in this encounter Results * Insulin-Like Growth Factor 1 with calculated Z- score (09/08/2024 12:13 PM EDT) IGF 1 (Insulin-Like Growth Factor 1) 63 31 - 243 ng/mL 09/10/2024 4:12 AM EDT [facility] ([facility]) IGF 1 Z Score Calculation -1.3 09/10/2024 4:12 AM EDT [facility] ([facility]) Blood Venous blood specimen / Unknown Venipuncture / Unknown 09/08/2024 12:13 PM EDT 09/08/2024 12:13 PM EDT Narrative [facility] [[email or web address] ([facility]) - 09/10/2024 4:12 AM EDT INTERPRETIVE INFORMATION: IGF 1 Z-SCORE CALCULATION A Z score is the number of standard deviations a given result is above (positive score) or below (negative score) the age- and sex-adjusted population mean. Results that are within the IGF-1 reference interval will have a Z score between -2.0 and +2.0. Performed By: [facility] [address] [place] [address] Heating And Ventilating Tender: Michael Low MD, PhD CLIA Number: [id number] us Gracy Aguilar MD LAB BLOOD ORDERABLES Final R esult [facility] [address] [place] [id number] * Human Immunodeficiency Virus (HIV-1) Quantitative PCR (09/08/2024 12:13 PM EDT) Human Immunodeficiency Virus (HIV-1) Quant Interpretation Not Detected Not Detected 09/10/2024 2:13 PM EDT [facility] Blood Venous blood specimen / Unknown Venipuncture / Unknown 09/08/2024 12:13 PM EDT 09/08/2024 12:13 PM EDT Narrative [facility] - 09/10/2024 2:13 PM EDT The [employer]ica M2000 HIV-1 test is a Real Time in vitro nucleic acid amplification test for the quantitation of Human Immunodeficiency Virus (HIV-1) RNA in human plasma in HIV-infected individuals. It is intended to quantify HIV-1 in patients who are infected with the virus. The dynamic range for this test is log10 = 1.60 to 7.00 and/or 40 to 10,000,000 copies/mL. The limit of detection (LOD) for this assay is 40 copies/mL and the limit of quantitaion (LOQ) is 40 copies/mL. This assay is FDA approved for clinical use. This assay should not be used to screen patients receiving gene therapy with HIV-1 based lentiviral vectors as false positives may be seen. us Gracy Aguilar MD LAB BLOOD ORDERABLES Final R esult [facility] [address] [place] [address] * (ABNORMAL) Comprehensive Metabolic Panel, Plasma (09/08/2024 12:13 PM EDT) Pathologist [facility] Glucose, Plasma 82 74 - 99 mg/dL 09/08/2024 4:07 PM EDT [facility] BUN, Plasma 13 8 - 23 mg/dL 09/08/2024 4:07 PM EDT [facility] Creatinine, Plasma 1.14 0.70 - 1.20 mg/dL 09/08/2024 4:07 PM EDT [facility] BUN/Creatinine Ratio 11 09/08/2024 4:07 PM EDT [facility] Sodium, Plasma 142 136 - 145 mmol/L 09/08/2024 4:07 PM EDT [facility] Potassium, Plasma 4.3 3.6 - 4.9 mmol/L 09/08/2024 4:07 PM EDT [facility] Chloride, Plasma 107 97 - 107 mmol/L 09/08/2024 4:07 PM EDT [facility] CO2, Plasma 24 22 - 29 mmol/L 09/08/2024 4:07 PM EDT [facility] Anion Gap 11 6 - 16 mmol/L 09/08/2024 4:07 PM EDT [facility] Total Calcium, Plasma 9.3 8.9 - 10.2 mg/dL 09/08/2024 4:07 PM EDT [facility] Total Protein 7.6 6.3 - 7.9 g/dL 09/08/2024 4:07 PM EDT [facility] Albumin, Plasma 4.2 3.5 - 5.2 g/dL 09/08/2024 4:07 PM EDT [facility] AST, Plasma 30 10 - 50 U/L 09/08/2024 4:07 PM EDT [facility] ALT, Plasma 28 10 - 50 U/L 09/08/2024 4:07 PM EDT [facility] Alkaline Phosphatase, Plasma 93 40 - 115 U/L 09/08/2024 4:07 PM EDT [facility] Total Bilirubin, Plasma 1.7(H) 0.2 - 1.1 mg/dL 09/08/2024 4:07 PM EDT [facility] eGFRcr 70.1 mL/min/1.7 3m*2 09/08/2024 4:07 PM EDT [facility] Comment:Reported eGFRcr in m L/min/1.73m2 is based the CKD-EPI 2020 equation that does not use a race coefficient. Blood Venous blood specimen / Unknown Venipuncture / Unknown 09/08/2024 12:13 PM EDT 09/08/2024 12:13 PM EDT us Gracy Aguilar MD LAB BLOOD ORDERABLES Final R esult [facility] [address] [place] [address] * (ABNORMAL) CD4?? Percent and Absolute (SO) (09/08/2024 12:13 PM EDT) Absolute CD4 833 cells/uL 09/09/2024 6:01 PM EDT [facility] [place] CD4 Percent and Absolute Information See Note 09/09/2024 6:01 PM EDT [facility] [[email or web address] ([facility]) PERCENT CD4 23(L) 35 - 68 % 09/09/2024 6:01 PM EDT [facility] ([facility]) Blood Venous blood specimen / Unknown Venipuncture / Unknown 09/08/2024 12:13 PM EDT 09/08/2024 12:13 PM EDT Narrative [facility] ([facility]) - 09/09/2024 6:01 PM EDT INTERPRETIVE INFORMATION: CD4 Percent and Absolute Count The CD4 cells are Somers T-cells expressing both CD3 and CD4. CD4 percentage is reported as a percent of total lymphocytes. CD4 T-cells levels are a criterion for categorizing HIV-related clinical conditions by CDC's classification system for HIV infection. The measurement of CD4 T-cell levels has been used to establish decision points for initiating P. jirovecii prophylaxis, antiviral therapy and to monitor the efficacy of treatment. The Public Health Service (PHS) has recommended that CD4 T-cell levels be monitored every three to six months in all HIV-infected persons. This test was developed and its performance characteristics determined by [facility]. It has not been cleared or approved by the US Food and Drug Administration. This test was performed in a CLIA certified laboratory and is intended for clinical purposes. Performed By: [facility] [address] [place] [address] Heating And Ventilating Tender: Michael Low MD, PhD CLIA Number: [id number] us Gracy Aguilar MD LAB REF LAB BLOOD AND FLUID ORD Final Result [facility] [[email or web address] ([facility]) [address] [place] [address] * (ABNORMAL) CBC and Differential (09/08/2024 12:13 PM EDT) WBC Count 7.72 3.70 - 10.30 10*3/uL LAB HEMATOLOGY METHOD 09/08/2024 4:39 PM EDT [facility] RBC Count 4.58(L) 4.60 - 6.10 10*6/uL LAB HEMATOLOGY METHOD 09/08/2024 4:39 PM EDT [facility] HGB 14.4 13.7 - 17.5 g/dL LAB HEMATOLOGY METHOD 09/08/2024 4:39 PM EDT [facility] HCT 42.6 40.0 - 51.0 % LAB HEMATOLOGY METHOD 09/08/2024 4:39 PM EDT [facility] Platelet Count 88(L) 155 - 369 10*3/uL LAB HEMATOLOGY METHOD 09/08/2024 4:39 PM EDT [facility] MCV 93 79 - 98 fL LAB HEMATOLOGY METHOD 09/08/2024 4:39 PM EDT [facility] MCH 31.4 26.0 - 32.0 pg LAB HEMATOLOGY METHOD 09/08/2024 4:39 PM EDT [facility] MCHC 33.8 30.7 - 35.5 g/dL LAB HEMATOLOGY METHOD 09/08/2024 4:39 PM EDT [facility] RDW 15.2(H) 11.5 - 14.5 % LAB HEMATOLOGY METHOD 09/08/2024 4:39 PM EDT [facility] MPV 11.3 8.8 - 12.5 fL LAB HEMATOLOGY METHOD 09/08/2024 4:39 PM EDT [facility] nRBC 0.0 <=0.0 per 100 WBCs LAB HEMATOLOGY METHOD 09/08/2024 4:39 PM EDT [facility] Differential Type Automated LAB HEMATOLOGY METHOD 09/08/2024 4:39 PM EDT [facility] Neutrophils % 48 % LAB HEMATOLOGY METHOD 09/08/2024 4:39 PM EDT [facility] Lymphocytes % 38 % LAB HEMATOLOGY METHOD 09/08/2024 4:39 PM EDT [facility] Monocytes % 10 % LAB HEMATOLOGY METHOD 09/08/2024 4:39 PM EDT [facility] Eosinophils % 2 % LAB HEMATOLOGY METHOD 09/08/2024 4:39 PM EDT [facility] Basophils % 1 % LAB HEMATOLOGY METHOD 09/08/2024 4:39 PM EDT [facility] Immature Granulocytes % 1 % LAB HEMATOLOGY METHOD 09/08/2024 4:39 PM EDT [facility] Neutrophils Absolute 3.71 1.60 - 6.10 10*3/uL LAB HEMATOLOGY METHOD 09/08/2024 4:39 PM EDT [facility] Lymphocytes Absolute 2.90 1.20 - 3.90 10*3/uL LAB HEMATOLOGY METHOD 09/08/2024 4:39 PM EDT [facility] Monocytes Absolute 0.79 0.30 - 0.90 10*3/uL LAB HEMATOLOGY METHOD 09/08/2024 4:39 PM EDT [facility] Eosinophils Absolute 0.18 0.00 - 0.50 10*3/uL LAB HEMATOLOGY METHOD 09/08/2024 4:39 PM EDT [facility] Basophils Absolute 0.04 0.00 - 0.10 10*3/uL LAB HEMATOLOGY METHOD 09/08/2024 4:39 PM EDT [facility] Immature Granulocytes Absolute 0.10(H) 0.00 - 0.06 10*3/uL LAB HEMATOLOGY METHOD 09/08/2024 4:39 PM EDT [facility] Blood Venous blood specimen / Unknown Venipuncture / Unknown 09/08/2024 12:13 PM EDT 09/08/2024 12:13 PM EDT Narrative [facility] - 09/08/2024 4:39 PM EDT Therapeutic decision making should be based on absolute values, rather than percentages. Gracy Aguilar MD LAB BLOOD ORDERABLES Final R esult Performing Organization Address [facility]/ZIP Co de Phone Number [facility] [address] [place] [address] * (ABNORMAL) Herpes Simplex Virus (HSV) by PCR (09/08/2024 11:50 AM EDT) Herpes Simplex Virus 1 (HSV-1) PCR Result Not Detected Not Detected 09/09/2024 6:30 AM EDT [facility] Herpes Simplex Virus 2 (HSV-2) PCR Result Detected(A) Not Detected 09/09/2024 6:30 AM EDT [facility] Swab Rectum structure / Unknown Non-blood Collection / Unknown 09/08/2024 11:50 AM EDT 09/08/2024 11:59 AM EDT Narrative [facility] - 09/09/2024 6:30 AM EDT The FDA approved specimen sources for this assay are CSF, cutaneous, and mucocutaneous sites. These results should be used in conjunction with other clinical tests and findings and should not be the sole basis for diagnosis or treatment of the patient. us Gracy Aguilar MD LAB MICROBIOLOGY - GENERAL O RDERABLES Final Result Performing Organization Address [facility] [place] [address] documented in this encounter Visit Diagnoses Diagnosis Superficial ulcerative lesion (CMS/HCC)- Primary Human immunodeficiency virus (CMS/HCC) Human immunodeficiency virus [HIV] disease HSV (herpes simplex virus) anogenital infection Herpes simplex without mention of complication Lipodystrophy AIDS (CMS/HCC) documented in this encounter Additional Health Concerns Active Problems Noted Date Diagnosed Date Treatment Adherence 09/02/2024 Assessment Noted Time PHQ-9 Depression Total Score: 0 07/28/20 25 10:25 AM EDT A fall risk assessment has been complete d for the patient 09/08/2024 10:59 AM EDT A Body Mass Index follow-up plan has been documented for the patient 09/11/2024 10:02 PM EDT documented as of this encounter Care Teams Implementation Consultant Relationship Specialty Start Date End Date Vandana Urbina MD [address] [place] [address] PCP - General Internal Medicine 05/02/23 [place] [address] Clinical Quality Assurance Associate Delivery Driver/Supervisor 05/31/21 Gracy Aguilar MD [address] [place] [address] [address] [place] [address] Consulting Physician Infectious Diseases 03/26/23 Chuck Kaplan PA [address] [place] [address] [address] [place] [address] Physician Mason Helper Infectious Diseases 03/26/23 Maria Elena Lizarraga PA [address] [facility] [address] [place] [address] Physician Mason Helper Urology 03/09/24 documented as of this encounter
[2024-10-16] VITALS (7 sets, daily range): BP systolic 118–149; BP diastolic 72–93; PULSE 55–81; RESP 16–20; TEMP 36.7–36.9; O2SAT 97–100; BMI 27.3
--- OUTSIDE RECORDS SUMMARY | 2024-10-16 10:29 | XMS_ITS | Encounter Summary ---
Author Organization Healthcare Address [address] [place] [address] Care Team Providers Care Speeder Operator Name Role Phone Lashay Maynard Unavailable Unavailable Eduardo Montez Primary Care Provider [phone] Gaby Maciel Unavailable Unavailable Ramya Vaughn LPN Unavailable Unavailable Madelyn Kamara Primary Care Provider + [phone] Pcp, No Primary Care Provider Unavailelizabeth e Gracy Aguilar MD Unavailable [phone] Chuck Kaplan Unavailable [phone] Eduardo Montez Primary Care Provider Vandana Urbina MD Primary Care Provider [phone] Maria Elena Lizarraga Unavailable [phone] Reason for Visit * Reason Comments Med Refill Encounter Details Date Type Department Care Team (Late st Contact Info) Description 03/08/2022 Refill MD Clinic Medicine Specialties [address] [place] [address] Reyna Rincon, CYLINDER DIE MACHINE HELPER [address] [facility] [address] [place] [address] Social History Tobacco Use Types Packs/Day Years Used Date Smoking Tobacco: Never Smokeless Tobacco: Never Alcohol Use Standard Drinks/Week Comments Yes 4 (1 standard drink = 0.6 oz pure alcohol) Alcoholic Drinks/day: Occasional alcohol use PHQ-2 Answer Date Recorded Patient Health Questionnaire-2 Score 0 02/21/2022 Sex and Gender Information Value Date Recorded Sex Assigned at Not on file Legal Sex Male 8:00 PM EDT Gender Identity Not on file Sexual Orientation Not on file COVID-19 Exposure Response Date Recorded In the last 10 days, have yo u been in contact with someone who was confirmed or suspected to have Coronavirus/COVID-19? No / Unsure 03/09/2022 3:04 PM EST documented as of this encounter Miscellaneous Notes * Telephone Encounter - Sudarshan Mckeon - 03/08/2022 8:08 AM EST Per protocol, 1 medication(s), creon, has been approved for 30 day supply with 8 refill(s) to [facility]. documented in this encounter Plan of Treatment Upcoming Encounters Date Type Department Care Team (Late st Contact Info) Description 10/19/2024 1:20 PM EDT Office Visit [facility] Medicine Specialties [address] [place] [address] Clara Bartholomew PA [address] [place] [address] 10/27/2024 10:30 AM EDT Office Visit [facility] [address] [facility] [address] [place] [address] 10/29/2024 9:30 AM EDT Office Visit [facility] Medicine Specialties [address] [place] [address] Nikkie Aguirre PA [address] [place] [address] 11/10/2024 11:00 AM EDT Office Visit [facility] Internal Medicine [address] [place] [address] Vandana Urbina MD [address] [place] [address] 11/16/2024 10:30 AM EDT Office Visit [facility] Urology [address] [place] [address] Maria Elena Lizarraga PA [address] [place] [address] 11/19/2024 10:00 AM EDT Clinical Support [facility] Lab [address] [place] [address] 11/26/2024 9:50 AM EDT Office Visit [facility] Urology [address] [place] [address] Nati Judge, CYLINDER DIE MACHINE HELPER, VALERIO [address] [place] [address] 12/08/2024 8:30 AM EDT Procedure Visit [facility] Orthopaedic Surgery & Sports Medicine [address] [facility], [address] [place] [address] Jonathan Armando MD [address] [facility] [address] [place] [address] 12/17/2024 3:00 PM EST Office Visit [facility] General Surgery [address] [place] [address] Germain Botello MD [address] [place] [address] 01/11/2025 9:30 AM EST Clinical Support [facility] Lab [address] [place] [address] 01/18/2025 10:50 AM EST Office Visit [facility] Urology [address] [place] [address] Nati Judge P, CYLINDER DIE MACHINE HELPER, DNP [address] [place] [address] 01/28/2025 1:30 PM EST Office Visit [facility] [address] [facility] [place] [address] Gracy Aguilar MD [address] [facility] [address] [place] [address] 03/15/2025 1:15 PM EST Office Visit [facility] Advanced Eye Care [address] [place] [address] Renee Graham S, OD [address] [place] [address] 06/01/2025 11:30 AM EDT Clinical Support [facility] Lab [address] [place] [address] 06/08/2025 1:40 PM EDT Office Visit [facility] Nephrology, Bone & Mineral Metabolism [address] [facility], [address] [place] [address] Marco Brandt MD [address] [place] [address] documented as of this encounter Goals Goal Patient Goal Type Associated Problems Recent Progress Patient-Stated? Author Patient to remain active in HIV care Care Plan Treatment Adherence On track( 1:48 PM EDT) Lisette Tom Patient to remain active on part B services/RW shama-eligible Care Plan Treatment Adherence On track(06/25/2 024 1:48 PM EDT) Lisette Tom Improve Knee Pain Care Plan Treatment Adherence On track( 024 1:51 PM EDT) Lisette Tom Note: Patient continues to take excellent care of his knee pain. He receives Gel Knee injections 2x per year. He reports having no knee pain. documented as of this encounter Visit Diagnoses Not on filedocumented in this encounter Additional Health Concerns Active Problems Noted Date Diagnosed Date Treatment Adherence 09/02/2024 Infection Onset Date Last Indicated Resolved Time COVID-19 Rule-Out 06/23/2022 06/23/2022 06/23/2022 2:24 PM EDT Respiratory Rule-Out 06/23/2022 06/23/2022 023 10:14 PM EDT Rhinovirus 06/23/2022 06/23/2022 05/21/2023 9:31 AM EDT Assessment Noted Time PHQ-9 Depression Total Score: 9 12/23/19 21 3:25 PM EST A fall risk assessment has been complete d for the patient 02/21/2022 2:15 PM EST documented as of this encounter Care Teams Speeder Operator Relationship Specialty Start Date End Date Eduardo Montez PA [address] [place] [address] PCP - General Internal Medicine 06/26/21 08/16/22 Madelyn Kamara PA [address] [place] [address] PCP - General Internal Medicine 08/17/22 12/26/22 Pcp, Flori [address] [place] [address] PCP - General Family Medicine 01/08/23 04/24/23 Eduardo Montez PA [address] [place] [address] PCP - General Internal Medicine 04/25/23 05/01/23 Vandana Urbina MD [address] [place] [address] PCP - General Internal Medicine 05/02/23 [place] [address] Structural Welder Hide And Skin Classer 05/31/21 [place] [address] Eldercare Navigator 06/15/22 07/15/22 Ramya Vaughn LPN [employer] [place] [address] TCM Nurse 06/29/22 07/27/22 Gracy Aguilar MD [address] [place] [address] [address] [place] [address] Consulting Physician Infectious Diseases 03/26/23 Chuck Kaplan PA [address] [place] [address] [address] [place] [address] Physician Dry Kiln Loader Infectious Diseases 03/26/23 Maria Elena Lizarraga PA [address] [facility] [address] [place] [address] Physician Dry Kiln Loader Urology 03/09/24 documented as of this encounter
--- OUTSIDE RECORDS SUMMARY | 2024-10-16 10:29 | XMS_ITS ---
Author Organization [facility] Address [address] [place] [address] Care Team Providers Care Varnish Blender Name Role Phone Lashay Maynard Unavailable Unavailable Gracy Aguilar MD Unavailable [phone] Chuck Kaplan Unavailable [phone] Vandana Urbina MD Primary Care Provider [phone] Maria Elena Lizarraga Unavailable [phone] Zen White Status:Active (Active) Start date:06/29/2009 Enrollment date:06/29/2009 Related social drivers of health:Intimate Partner Violence, Alcohol Use, Tobacco Use, Financial Resource Strain, Depression, Stress,Food Insecurity, Transportation Needs, Housing Stability, Safety and Environment Case Team Name Relationship Phone Lashay Maynard(Responsible Staff) Continued Care and Services Coordination
--- OUTSIDE RECORDS SUMMARY | 2024-10-16 10:29 | XMS_ITS | Clinical Summary ---
[facility] Address [address] [place] [address] Care Team Providers Care Process Safety Manager Name Role Phone Gracy Aguilar MD Primary Care Provider Social History Tobacco Use Types Packs/Day Years Used Date Smoking Tobacco: Never Assessed Abuse Screen Answer Date Recorded Unsafe at Home or Work/School Not on file Feels Threatened by Someone? Not on file 12/2022 Does Anyone Keep You from Co ntacting Others or Doint Things Outside the Home? Not on file 11/21/2022 Physical Sign of Abuse Present Not on file 1 Housing Stability Answer Date Recorded Current Living Arrangements Not on file 11/11 Potentially Unsafe Housing Conditions Not on francisco e 11/21/2022 Family and Community Support Answer Solomon e Recorded Help with Day-to-Day Activities Not on file 11/21/2022 Lonely or Isolated Not on file 11/21/2022 Employment Answer Date Recorded Do you want help finding or keeping work or a charles b? Not on file 11/21/2022 Disabilities Answer Date Recorded Concentrating, Remembering, or Making Decisions Difficulty Not on file 11/21/2022 Doing Errands Independently Difficulty Not on fi le 11/21/2022 Education Answer Date Recorded Help with school or training? Not on file Preferred Language Not on file 11/21/2022 Sex and Gender Information Value Date Recorded Sex Assigned at Not on file Legal Sex Male 11:34 AM EDT Gender Identity Not on file Sexual Orientation Not on file Plan of Treatment Health Maintenance Due Date Last Done Comments ANNUAL PHYSICAL 1955 HEPATITIS C SCREENING 1955 TDAP/TD VACCINES (1 - Tdap) 02/25/1975 COLOGUARD 02/25/2001 COLON CANCER SCREENING 5 YEAR SIGMOIDOSCOPY 02/25/2001 COLONOSCOPY 02/25/2001 COLORECTAL CANCER SCREENING 02/25/2001 CT COLONOGRAPHY 02/25/2001 FECAL OCCULT BLOOD TEST 02/25/2001 FIT Testing (1 year) 02/25/2001 Pneumococcal Vaccine 50+ (1 of 1 - PCV) 02/25/2006 ZOSTER VACCINE (1 of 2) 02/25/2006 AAA SCREEN ONCE 02/25/2021 COVID-19 Vaccine (1 - 2023- season) 2023 INFLUENZA VACCINE 11/11/2024 Insurance MEDICARE A & B Care Teams Process Safety Manager Relationship Specialty Start Date End Date Gracy Aguilar MD [address] [phone] PCP - General Infectious Diseases 01/24/16
--- OUTSIDE RECORDS SUMMARY | 2024-10-16 10:29 | XMS_ITS | Encounter Summary ---
Author Organization Healthcare Address [address] [place] [address] Care Team Providers Care Sign Erector Name Role Phone Kenton Servin MD Primary Care Provider +- [phone] Lashay Maynard Unavailable Unavailable Eduardo Montez Primary Care Provider [phone] Gaby Maciel Unavailable Unavailable Ramya Vaughn LPN Unavailable Unavailable Madelyn Kamara Primary Care Provider +- [phone] Pcp, No Primary Care Provider Unavailabl e Gracy Aguilar MD Unavailable [phone] Chuck Kaplan Unavailable [phone] Eduardo Montez Primary Care Provider [phone] Vandana Urbina MD Primary Care Provider [phone] Maria Elena Lizarraga Unavailable [phone] Reason for Visit * Reason Comments Med Refill Encounter Details Date Type Department Care Team (Late st Contact Info) Description 02/06/2021 [facility]ill [place] [facility]ious [facility] [address] [place] [address] Gracy Aguilar MD [address] [facility] [address] [place] [address] Social History Tobacco Use Types Packs/Day Years Used Date Smoking Tobacco: Never Smokeless Tobacco: Never Alcohol Use Standard Drinks/Week Comments Yes 4 (1 standard drink = 0.6 oz pure alcohol) Alcoholic Drinks/day: Occasional alcohol use PHQ-2 Answer Date Recorded Patient Health Questionnaire-2 Score 3 12/22/2020 Sex and Gender Information Value Date Recorded Sex Assigned at Not on file Legal Sex Male 8:00 PM EDT Gender Identity Not on file Sexual Orientation Not on file COVID-19 Exposure Response Date Recorded In the last month, have you been in contact with someone who was confirmed or suspected to have Coronavirus / COVID-19? No / Unsure 01/17/2021 12:15 PM EST documented as of this encounter Plan of Treatment Upcoming Encounters Date Type Department Care Team (Late st Contact Info) Description 10/19/2024 1:20 PM EDT Office Visit [facility] Medicine Specialties [address] 2[address] [place] [address] Clara Bartholomew PA [address] [place] [address] 10/27/2024 10:30 AM EDT Office Visit [facility] [address] [facility] [address] [place] [address] 10/29/2024 9:30 AM EDT Office Visit [facility] Medicine Specialties [address] [place] [address] Nikkie Aguirre PA [address] [place] [address] 11/10/2024 11:00 AM EDT Office Visit [facility] Internal Medicine [address], 3rd [place] [address] Vandana Urbina MD [address] [place] [address] 11/16/2024 10:30 AM EDT Office Visit [facility] Urology [address], 2[address] [place] [address] Maria Elena Lizarraga PA [address] [place] [address] 11/19/2024 10:00 AM EDT Clinical Support [facility] [address], 2[address] [place] [address] 11/26/2024 9:50 AM EDT Office Visit [facility] Urology [address], [address] [place] [address] Nati Judge APRN, DNP [address] [place] [address] 12/08/2024 8:30 AM EDT Procedure Visit [facility] Orthopaedic Surgery & Sports Medicine [address] [facility], [address] [place] [address] Jonathan Armando MD [address] [facility] [address] [place] [address] 12/17/2024 3:00 PM EST Office Visit [facility] General Surgery [address], [address] [place] [address] Germain Botello MD [address] [place] [address] 01/11/2025 9:30 AM EST Clinical Support [facility] [address] [place] [address] 01/18/2025 10:50 AM EST Office Visit [facility] Urology [address], 2nd [place] [address] Nati Judge APRN, DNP [address] [place] [address] 01/28/2025 1:30 PM EST Office Visit [facility] [address] [facility] [place] [address] Gracy Aguilar MD [address] [facility] [address] [place] [address] 03/15/2025 1:15 PM EST Office Visit [facility] Eye Care [address] [place] [address] Renee Graham S, OD [address] [place] [address] 06/01/2025 11:30 AM EDT Clinical Support [facility] [address], 2[address] [place] [address] 06/08/2025 1:40 PM EDT Office Visit [facility] Nephrology, Bone & Mineral Metabolism [address] [facility], [address] [place] [address] Marco Brandt MD [address] [place] [address] documented as of this encounter Visit Diagnoses Not on filedocumented in this encounter Additional Health Concerns Infection Onset Date Last Indicated Resolved Time Gastrointestinal Rule-Out 02/28/2021 02/27/2021 3:43 PM EST C. difficile Rule-Out 02/28/2021 02/27/20212021 3:43 PM EST COVID 19 (Confirmed) 05/29/2021 05/29/2021 022 5:23 AM EDT COVID-19 Rule-Out 06/23/2022 06/23/2022 06/23/2022 2:24 PM EDT Respiratory Rule-Out 06/23/2022 06/23/2022 023 10:14 PM EDT Rhinovirus 06/23/2022 06/23/2022 05/21/2023 9:31 AM EDT Assessment Noted Time PHQ-9 Depression Total Score: 9 12/23/19 21 3:25 PM EST A fall risk assessment has been complete d for the patient 12/22/2020 3:27 PM EST documented as of this encounter Care Teams Sign Erector Relationship Specialty Start Date End Date Kenton Servin MD [address] [place] [address] PCP - General Internal Medicine 04/21/21 06/25/21 Eduardo Montez PA [address] [place] [address] PCP - General Internal Medicine 06/26/21 08/16/22 Madelyn Kamara PA [address] [place] [address] PCP - General Internal Medicine 08/17/22 12/26/22 [place] [address] PCP - General Family Medicine 01/08/23 04/24/23 Eduardo Montez PA [address] [place] [address] PCP - General Internal Medicine 04/25/23 05/01/23 Vandana Urbina MD [address] [place] [address] PCP - General Internal Medicine 05/02/23 [place] [address] Industrial Automation Engineer Nut Process Helper 05/31/21 [place] [address] Eldercare Navigator 06/15/22 07/15/22 Ramya Vaughn LPN VALUE-[place] [address] TCM Nurse 06/29/22 07/27/22 Gracy Aguilar MD [address] [place] [address] [address] [place] [address] Consulting Physician Infectious Diseases 03/26/23 Chuck Kaplan PA [address] [place] [address] [address] [place] [address] Physician Automatic Dispenser Mechanic Infectious Diseases 03/26/23 Maria Elena Lizarraga PA [address] [place] [address] Physician Automatic Dispenser Mechanic Urology 03/09/24 documented as of this encounter
--- OUTSIDE RECORDS SUMMARY | 2024-10-16 10:29 | XMS_ITS | Encounter Summary ---
Author Organization [facility] Address [address] [place] [address] Care Team Providers Care Counseling Program Leader Name Role Phone Lashay Maynard Unavailable Unavailable Eduardo Montez Primary Care Provider [phone] Gaby Maciel Unavailable Unavailable Ramya Vaughn LPN Unavailable Unavailable Madelyn Kamara Primary Care Provider + [phone] Pcp, No Primary Care Provider Unavailelizabeth e Gracy Aguilar MD Unavailable [phone] Chuck Kaplan Unavailable [phone] Eduardo Montez Primary Care Provider [phone] Vandana Urbina MD Primary Care Provider [phone] Maria Elena Lizarraga Unavailable [phone] Reason for Visit * Reason Comments Med Refill Encounter Details Date Type Department Care Team (Late st Contact Info) Description 02/19/2022 [address] [place] [address] Gracy Aguilar MD [address] [place] [address] [address] [place] [address] Social History Tobacco Use Types Packs/Day Years [...] suspected to have Coronavirus/COVID-19? No / Unsure 02/21/2022 1:51 PM EST documented as of this encounter Functional Status * Over the past 2 weeks, how often have you been bothered by any of the following problems? Question Answer Date of Assessment Author Little interest or pleasure in doing things Not at all 02/21/2022 2:15 PM EST HashDestinyly A Feeling down, depressed, or hopeless Not at all 02/21/2022 2:15 PM EST Hash, Liss A Patient Health Questionnaire -2 Score 0 02/21/2022 2:15 PM EST HashHattieLiss A documented as of this encounter Miscellaneous Notes * Telephone Encounter - Jasen Tran - 02/22/2022 1:14 PM EST Patient needs to obtain medication from PCP. * Telephone Encounter - Kaela Harris RN - 02/20/2022 12:45 PM EST RN spoke with pt. Pt stated he has appt with his PCP tomorrow and will talk to his PCP. * Telephone Encounter - Kaela Harris RN - 02/20/2022 9:56 AM EST RN called pt and left general message on voicemail asking pt to return call. documented in this encounter Plan of Treatment Upcoming Encounters Date Type Department Care Team (Late st Contact Info) Description 10/19/2024 1:20 PM EDT Office Visit [facility] Medicine Special[facility] [address] [place] [address] Clara Bartholomew PA [address] [place] [address] 10/27/2024 10:30 AM EDT Office [facility] [address] [facility] [address] [place] [address] 10/29/2024 9:30 AM EDT Office Visit [facility] Medicine Specialties [address] 2nd [place] [address] Nikkie Aguirre PA [address] [place] [address] 11/10/2024 11:00 AM EDT Office Visit [facility] Internal Medicine [address], 3rd [place] [address] Vandana Urbina MD [address] [place] [address] 11/16/2024 10:30 AM EDT Office Visit [facility] Urology [address], 2nd [place] [address] Maria Elena Lizarraga PA [address] [place] [address] 11/19/2024 10:00 AM EDT Clinical Support [facility] Lab [address] 2[address] [place] [address] 11/26/2024 9:50 AM EDT Office Visit [facility] Urology [address] [place] [address] Nati Judge, CORRESPONDENCE TRANSCRIBER, DNP [address] [place] [address] 12/08/2024 8:30 AM EDT Procedure Visit [facility] Orthopaedic Surgery & Sports Medicine [address] [facility] [place] [address] Jonathan Armando MD [address] [place] [address] 12/17/2024 3:00 PM EST Office Visit [facility] General Surgery [address] [place] [address] Germain Botello MD [address] [place] [address] 01/11/2025 9:30 AM EST Clinical Support [facility] Lab [address] [place] [address] 01/18/2025 10:50 AM EST Office Visit [facility] Urology [address] 2[address] [place] [address] Nati Judge, CORRESPONDENCE TRANSCRIBER, DNP [address] [place] [address] 01/28/2025 1:30 PM EST Office [facility] [address] [facility] [place] [address] Gracy Aguilar MD [address] [facility] [address] [place] [address] 03/15/2025 1:15 PM EST Office Visit [facility] Eye Care [address] [place] [address] Renee Graham S, OD [address] [place] [address] 06/01/2025 11:30 AM EDT Clinical Support [facility] [address] [place] [address] 06/08/2025 1:40 PM EDT Office Visit [facility] Nephrology, Bone & Mineral Metabolism [address] [facility] [place] [address] Marco Brandt MD [address] [place] [address] documented as of this encounter [...] has been complete d for the patient 01/17/2022 2:42 PM EST documented as of this encounter Care Teams Counseling Program Leader Relationship Specialty Start Date End Date Eduardo Montez PA [address] [place] [address] PCP - General Internal Medicine 06/26/21 08/16/22 Madelyn Kamara PA [address] [place] [address] PCP - General Internal Medicine 08/17/22 12/26/22 Pcp, Flori [address] [place] [address] PCP - General Family Medicine 01/08/23 04/24/23 Eduardo Montez PA [address] [place] [address] PCP - General Internal Medicine 04/25/23 05/01/23 Vandana Urbina MD [address] [place] [address] PCP - General Internal Medicine 05/02/23 [place] [address] Shoe Dyer Risk Advisor 05/31/21 [place] [address] [employer]are Navigator 06/15/22 07/15/22 Ramya Vaughn LPN VALUE-[employer]ED [place] [address] TCM Nurse 06/29/22 07/27/22 Gracy Aguilar MD [facility] [address] [place] [address] Consulting Physician Infectious Diseases 03/26/23 Chuck Kaplan PA [facility] [address] [place] [address] Physician Corrective And Manual Arts Therapist Infectious Diseases 03/26/23 Maria Elena Lizarraga PA [address] [place] [address] Physician Corrective And Manual Arts Therapist Urology 03/09/24 documented as of this encounter
--- OUTSIDE RECORDS SUMMARY | 2024-10-16 10:29 | XMS_ITS | Encounter Summary ---
Author Organization [facility] Address [address] [place] [address] Care Team Providers Care Sprinkler Fitter Name Role Phone CaesarLashay Arin Unavailable Unavailable Gracy Aguilar MD Unavailable [phone] Chuck Kaplan Unavailable [phone] Vandana Urbina MD Primary Care Provider [phone] Maria Elena Lizarraga Unavailable [phone] Encounter Details Date Type Department Care Team (Latest Contact Info) Description 08/17/2024 Travel Social History Tobacco Use Types Packs/Day Years [...] often do you attend chur ch or christianity services? Never 05/02/2023 Do you belong to any clubs o r organizations such as yazidi groups, unions, fraternal or athletic groups, or [...] Date Recorded Patient Health Questionnaire-2 Score 0 07/15/2024 [facility] - Occupational Stress Questionnaire Answer Date [...] money to buy more. Never true 05/06/19 25 Within the past 12 months, t he [...] place to sleep or slept in a assisted (including now)? No 11/05/2023 PHQ-9 Answer Date [...] any time in the past 12 m ont, were you homeless or living in a assisted (including now)? No 05/05/2024 Safety and Environment [...] drink first t mina in the morning (EYE-STOVE BOTTOM WORKER) to steady your nerves or to get rid of a hangover? 0 06/20/2022 CAGE Questionnaire Score 0 023 Utilities Answer Date Recorded In the past 12 months has e electric, gas, oil, or water company threatened to shut off services in your home? No 05/05/2024 PHQ-2A Answer Date Recorded Patient Health Questionnaire-2 Score 0 12/27/2022 Sex and Gender Information Value Date Recorded Sex Assigned at Not on file Legal Sex Male 8:00 PM EDT Gender Identity Not on file Sexual Orientation Not on file documented as of this encounter Functional Status * Are you [...] 5:50 PM EDT Tabatha Sosa RN documented as of this encounter Mental Status * Because of a physical, mental, or emotional condition, do you have serious difficulty concentrating, remembering, or making decisions? (5 years old or older) Answer Entry Date Author No 06/28/2022 5:50 PM EDT Tabatha Sosa RN documented in this encounter Plan of Treatment Upcoming Encounters Date Type Department Care Team (Late st Contact Info) Description 10/19/2024 1:20 PM EDT Office Visit [facility] Medicine Specialties [address] [place] [address] Clara Bartholomew PA [address] [place] [address] 10/27/2024 10:30 AM EDT Office Visit [facility] [address] [facility] [address] [place] [address] 10/29/2024 9:30 AM EDT Office Visit [facility] Medicine Specialties [address] [place] [address] Nikkie Aguirre, PA [address] [place] [address] 11/10/2024 11:00 AM EDT Office Visit [facility] Internal Medicine [address] 3rd [place] [address] Vandana Urbina MD [address] [place] [address] 11/16/2024 10:30 AM EDT Office Visit [facility] Urology [address] [place] [address] Maria Elena Lizarraga PA [address] [place] [address] 11/19/2024 10:00 AM EDT Clinical Support [facility] Lab [address] [place] [address] 11/26/2024 9:50 AM EDT Office Visit [facility] Urology [address] [place] [address] Nati Judge, SENIOR ART DIRECTOR, DNP [address] [place] [address] 12/08/2024 8:30 AM EDT Procedure Visit [facility] Orthopaedic Surgery & Sports Medicine [address] [facility], [address] [place] [address] Jonathan Armando MD [address] [facility] [address] [place] [address] 12/17/2024 3:00 PM EST Office Visit [facility] General Surgery [address] [place] [address] Germain Botello MD [address] [place] [address] 01/11/2025 9:30 AM EST Clinical Support [facility] Lab [address] [place] [address] 01/18/2025 10:50 AM EST Office Visit [facility] Urology [address] [place] [address] Nati Judge P, SENIOR ART DIRECTOR, DNP [address] [place] [address] 01/28/2025 1:30 PM EST Office Visit [facility] [address] [facility] [place] [address] Gracy Aguilar MD [address] [facility] [address] [place] [address] 03/15/2025 1:15 PM EST Office Visit [facility] Advanced Eye Care [address] [place] [address] Renee Graham S, OD [address] [place] [address] 06/01/2025 11:30 AM EDT Clinical Support [facility] Lab [address] [place] [address] 06/08/2025 1:40 PM EDT Office Visit [facility] Nephrology, Bone & Mineral Metabolism [address] [place] [address] Marco Brandt MD [address] [place] [address] documented as of this encounter [...] has been complete d for the patient 07/15/2024 11:34 AM EDT A Body Mass Index follow-up plan has been documented for the patient 08/10/2024 1:01 PM EDT documented as of this encounter Care Teams Sprinkler Fitter Relationship Specialty Start Date End Date Vandana Urbina MD [address] [facility] [address] [place] [address] PCP - General Internal Medicine 05/02/23 [place] [address] Overcoiler Pinion And Wheel Truer 05/31/21 Gracy Aguilar MD [address] [facility] [address] [place] [address] Consulting Physician Infectious Diseases 03/26/23 Chuck Kaplan PA [address] [facility] [address] [place] [address] Physician Accounts Receivable Representative Infectious Diseases 03/26/23 Maria Elena Lizarraga PA [address] [facility] [address] [place] [address] Physician Accounts Receivable Representative Urology 03/09/24 documented as of this encounter
--- OUTSIDE RECORDS SUMMARY | 2024-10-16 10:29 | XMS_ITS | Encounter Summary ---
Author Organization [facility] Address [address] [place] [address] Care Team Providers Care Hall Coordinator Name Role Phone Lashay Maynard Arin Unavailable Unavailable Gracy Aguilar MD Unavailable [phone] Chuck Kaplan Unavailable [phone] Vandana Urbina MD Primary Care Provider [phone] Maria Elena Lizarraga Unavailable [phone] Encounter Details Date Type Department Care Team (Late st Contact Info) Description 07/23/2024 Results [facility]-Up [facility] [address], [address] [place] [address] Nati Judge, RUBY, DNP [address] [place] [address] Social History Tobacco Use Types Packs/Day Years [...] often do you attend chur ch or druze services? Never 05/02/2023 Do you belong to any clubs o r organizations such as spiritism groups, unions, fraternal or athletic groups, or [...] Recorded Patient Health Questionnaire-2 Score 0 09/08/2024 [facility] - Occupational Stress Questionnaire Answer Date [...] [facility] the [facility] or living in [...] drink first t mina in the morning (EYE-STORE OPERATIONS MANAGER) to steady your nerves or to get rid of a hangover? 0 06/20/2022 CAGE Questionnaire Score 0 023 Utilities Answer Date Recorded In the past 12 months has th [employer], gas, oil, or water company threatened to [...] of Assessment Author No 06/28/2022 5:50 PM STEPHENT Tabatha Sosa RN * Over the past [...] much Not at all 09/07/2024 10:25 AM EDT Olu Lim Feeling tired or having louise le energy Not at all 09/07/2024 10:25 AM STEPHENT Brent Guzman Poor appetite or overeating Not at all 09/07/2024 10 :25 AM STEPHENT Olu Guzman Feeling bad about yourself - or that you are a failure or have let yourself or your family down Not at all 09/07/2024 10:25 AM EDT Olu Ty Trouble concentrating on thi ngs, such as reading the newspaper or watching television Not at all 09/07/2024 10:25 AM STEPHENT Brent Guzman Moving or speaking so slowly that other [...] [facility] Medicine Specialties [address] [place] [address] Clara Bartholomew PA [address] [place] [address] 10/27/2024 10:30 AM EDT Office [facility] [address] [facility] [address] [place] [address] 10/29/2024 9:30 AM EDT Office Visit [facility] Medicine Specialties [address], [address] [place] [address] Nikkie Aguirre, PA [address] [place] [address] 11/10/2024 11:00 AM EDT Office Visit [facility] Internal Medicine [address], 3rd [place] [id number] Vandana Urbina MD [address] [place] [address] 11/16/2024 10:30 AM EDT Office Visit [facility] Urology [address], [address] [place] [address] Maria Elena Lizarraga PA [address] [place] [address] 11/19/2024 10:00 AM EDT Clinical Support [facility] Lab [address], [address] [place] [address] 11/26/2024 9:50 AM EDT Office Visit [facility] Urology [address], [address] [place] [address] Nati Judge, FOCUSED FACTORY MANAGER, DNP [address] [place] [address] 12/08/2024 8:30 AM EDT Procedure Visit [facility] Orthopaedic Surgery & Sports Medicine [address] [facility], [address] [place] [address] Jonathan Armando MD [address] [facility] [address] [place] [address] 12/17/2024 3:00 PM EST Office Visit [facility] General Surgery [address], [address] [place] [address] Germain Botello MD [address] [place] [address] 01/11/2025 9:30 AM EST Clinical Support [facility] Lab [address], [address] [place] [address] 01/18/2025 10:50 AM EST Office Visit [facility] Urology [address], [address] [place] [address] Nati Judge, FOCUSED FACTORY MANAGER, DNP [address] [place] [address] 01/28/2025 1:30 PM EST [facility] Visit [facility] [address] [facility] [place] [address] Gracy Aguilar MD [address] [facility] [address] [place] [address] 03/15/2025 1:15 PM EST Office Visit [facility] [address] [place] [address] Renee Graham S, OD [address] [place] [address] 06/01/2025 11:30 AM EDT Clinical Support [facility] Lab [address], [address] [place] [address] 06/08/2025 1:40 PM EDT Office Visit [facility] Nephrology, Bone & Mineral Metabolism [address] [facility], [address] [place] [address] Marco Brandt MD [address] [place] [address] documented as of this encounter Goals Goal Patient Goal Type Associated Problems Recent Progress Patient-Stated? Author Patient to remain active in HIV care Care Plan Treatment Adherence On track( 1:48 PM EDT) No Lisette Haywood Patient to remain active on part B services/RW shama-eligible Care Plan Treatment Adherence On track( 1:48 PM EDT) No Lisette Haywood Improve [...] plan has been documented for the patient 07/16/2024 9:08 PM EDT documented as of this encounter Care Teams Hall Coordinator Relationship Specialty Start Date End Date Vandana Urbina MD [address] [facility] [address] [place] [address] PCP - General Internal Medicine 05/02/23 [place] [address] Pigs Feet Finisher Human Resource Management Instructor 05/31/21 Gracy Aguilar MD [address] [place] [address] [address] [place] [address] Consulting Physician Infectious Diseases 03/26/23 Chuck Kaplan PA [address] [facility] [address] [place] [address] Physician Milling/Polishing Operator Infectious Diseases 03/26/23 Maria Elena Lizarraga PA [address] [facility] [address] [place] [address] Physician Milling/Polishing Operator Urology 03/09/24 documented as of this encounter
--- OUTSIDE RECORDS SUMMARY | 2024-10-16 10:29 | XMS_ITS | Encounter Summary ---
Author Organization [facility] Address [address] [place] [address] Care Team Providers Care Help Desk Rep Name Role Phone Gracy Aguilar Primary Care Provider UnavailKenton Espinoza MD Primary Care Provider [phone] Lashay Maynard Unavailable Unavailable Eduardo Montez Primary Care Provider [phone] Gaby Maciel Unavailable Unavailable Ramya Vaughn LPN Unavailable Unavailable Madelyn Kamara Primary Care Provider [phone] Pcp, No Primary Care Provider UnavailGracy Woodard MD Unavailable [phone] Chuck Kaplan Unavailable [phone] Eduardo Montez Primary Care Provider [phone] Vandana Urbina MD Primary Care Provider [phone] Maria Elena Lizarraga Unavailable [phone] Encounter Details Date Type Department Care Team (Late st Contact Info) Description 11/12/2019 [facility] [address] [place] [address] Dental, Provider, DDS [address] [place] [address] Social History Tobacco Use Types Packs/Day Years Used Date Smoking Tobacco: Never Assessed Sex and Gender Information Value Date Recorded Sex Assigned at Not on file Legal Sex Male 8:00 PM EDT Gender Identity Not on file Sexual Orientation Not on file documented as of this encounter Plan of Treatment Upcoming Encounters Date Type Department Care Team (Late st Contact Info) Description 10/19/2024 1:20 PM EDT Office Visit [facility] Medicine Specialties [address], 2nd [place] [address] Clara Bartholomew PA [address] [place] [address] 10/27/2024 10:30 AM EDT Office Visit [facility] [address] [facility] [address] [place] [address] [phone] 10/29/2024 9:30 AM EDT Office Visit [facility] Medicine Specialties [address], [address]nd [place] [address] Nikkie Aguirre PA [address] [place] [address] 11/10/2024 11:00 AM EDT Office Visit [facility] Internal Medicine [address], 3rd [place] [address] Vandana Urbina MD [address] [place] [address] 11/16/2024 10:30 AM EDT Office Visit [facility] Urology [address], [address] [place] [address] Maria Elena Lizarraga PA [address] [place] [address] 11/19/2024 10:00 AM EDT Clinical Support [facility] Lab [address], [address] [place] [address] 11/26/2024 9:50 AM EDT Office Visit [facility] Urology [address], [address] [place] [address] Nati Judge APRN, DNP [address] [place] [address] 12/08/2024 8:30 AM EDT Procedure Visit [facility] Orthopaedic Surgery & Sports Medicine [address] [place] [address] Jonathan Armando MD [address] [place] [address] 12/17/2024 3:00 PM EST Office Visit [facility] General Surgery [address], [address] [place] [address] Germain Botello MD [address] [place] [address] 01/11/2025 9:30 AM EST Clinical Support [facility] [address], [address] [place] [address] 01/18/2025 10:50 AM EST Office Visit [facility] Urology [address], [address] [place] [address] Nati Judge APRN, DNP [address] [place] [address] 01/28/2025 1:30 PM EST Office Visit [facility] [address] [place] [address] Gracy Aguilar MD [address] [facility] [address] [place] [address] 03/15/2025 1:15 PM EST Office Visit [facility] Advanced Eye Care [address] [place] [address] GrahamRenee S, OD [address] [place] [address] 06/01/2025 11:30 AM EDT [facility] [address], [address] [place] [address] 06/08/2025 1:40 PM EDT Office Visit [facility] Nephrology, Bone & Mineral Metabolism [address] [facility], [address] [place] [address] Marco Brandt MD [address] [place] [address] documented as of this encounter [...] Rhinovirus 06/23/2022 06/23/2022 05/21/2023 9:31 AM EDT documented as of this encounter Care Teams Help Desk Rep Relationship Specialty Start Date End Date Gracy Aguilar [place] PCP - General Family Medicine 09/29/20 12/21/20 Kenton Servin MD [address] [place] [address] PCP - General Internal Medicine 04/21/21 06/25/21 Eduardo Montez PA [address] [place] [address] PCP - General Internal Medicine 06/26/21 08/16/22 Madelyn Kamara PA [address] [place] [address] PCP - General Internal Medicine 08/17/22 12/26/22 Pcp, Flori [address] [place] [address] PCP - General Family Medicine 01/08/23 04/24/23 Eduardo Montez PA [address] [place] [address] PCP - General Internal Medicine 04/25/23 05/01/23 Vandana Urbina MD [address] [place] [address] PCP - General Internal Medicine 05/02/23 [place] [address] Drinking Water Technician Commissary Steward 05/31/21 [place] [address] Eldercare Navigator 06/15/22 07/15/22 Ramya Vaughn LPN VALUE-[employer]ED [place] [address] TCM Nurse 06/29/22 07/27/22 Gracy Aguilar MD [address] [place] [address] [address] [place] [address] Consulting Physician Infectious Diseases 03/26/23 Chuck Kaplan PA [address] [place] [address] [address] [place] [address] Physician Wafer Batter Mixer Infectious Diseases 03/26/23 Maria Elena Lizarraga PA [address] [address] Physician Wafer Batter Mixer Urology 03/09/24 documented as of this encounter
--- OUTSIDE RECORDS SUMMARY | 2024-10-16 10:29 | XMS_ITS | Encounter Summary ---
Author Organization [facility] Address [address] [place] [address] Care Team Providers Care Director Of Application Development Name Role Phone Lashay Maynard Arin Unavailable Unavailable Gracy Aguilar MD Unavailable [phone] Chuck Kaplan Unavailable [phone] Vandana Urbina MD Primary Care Provider [phone] Maria Elena Lizarraga Unavailable [phone] Encounter Details Date Type Department Care Team (Late st Contact Info) Description 08/19/2024 Results Follow-Up [place] [facility] [address], [address] [place] [address] Nati Judge, RUBY, DNP [address] [place] [address] Social History Tobacco Use Types [...] often do you attend chur ch or methodist services? Never 05/02/2023 Do you belong to any clubs o r organizations such as cheondoism groups, unions, fraternal or athletic groups, or [...] Recorded Patient Health Questionnaire-2 Score 0 07/15/2024 [facility] - Occupational Stress Questionnaire Answer Date [...] place to sleep or slept in a chcf (including now)? No 11/05/2023 PHQ-9 Answer Date [...] time in the past 12 m [facility], were you homeless or living in a chcf (including now)? No 05/05/2024 Safety and Environment [...] drink first t mina in the morning (EYE-SUPERVISOR DRY CELL ASSEMBLY) to steady your nerves or to get rid of a hangover? 0 06/20/2022 CAGE Questionnaire Score 0 023 Utilities Answer Date Recorded In the past 12 months has th e [employer], gas, oil, or water company threatened to [...] Description 10/19/2024 1:20 PM EDT Office Visit [facility] Medicine Specialties [address], 2nd [place] [address] Clara Bartholomew PA [address] [place] [address] 10/27/2024 10:30 AM EDT Office Visit [facility] [address] [facility] [address] [place] [address] 10/29/2024 9:30 AM EDT Office Visit [facility] Medicine Specialties [address], 2[address] [place] [address] Nikkie Aguirre PA [address] [place] [address] 11/10/2024 11:00 AM EDT Office Visit [facility] Internal Medicine [address], 3rd [place] [address] Vandana Urbina MD [address] [place] [address] 11/16/2024 10:30 AM EDT Office Visit [facility] Urology [address], [address] [place] [address] Maria Elena Lizarraga PA [address] [place] [address] 11/19/2024 10:00 AM EDT Clinical Support [facility] Lab [address] [place] [address] 11/26/2024 9:50 AM EDT Office Visit [facility] Urology [address], [address] [place] [address] Nati Judge, LETTER SORTING MACHINE OPERATOR, DNP [address] [place] [address] 12/08/2024 8:30 AM EDT Procedure Visit [facility] Orthopaedic Surgery & Sports Medicine [address] [place] [address] Jonathan Armando MD [address] [place] [address] 12/17/2024 3:00 PM EST Office Visit [facility] General Surgery [address] [place] [address] Germain Botello MD [address] [place] [address] 01/11/2025 9:30 AM EST Clinical Support [facility] Lab [address], [address] [place] [address] 01/18/2025 10:50 AM EST Office Visit [facility] Urology [address], [address] [place] [address] Nati Judge P, LETTER SORTING MACHINE OPERATOR, DNP [address] [place] [address] 01/28/2025 1:30 PM EST Office Visit [facility] [address] [facility] [place] [address] Gracy Aguilar MD [address] [facility] [address] [place] [address] 03/15/2025 1:15 PM EST Office Visit [facility] Advanced Eye Care [address] [place] [address] Renee Graham S, OD [address] [place] [address] 06/01/2025 11:30 AM EDT Clinical Support [place] [facility] [address], [address] [place] [address] 06/08/2025 1:40 PM EDT Office Visit [facility] Nephrology, Bone & Mineral Metabolism [address] [facility], [address] [place] [address] Marco Brandt MD [address] [place] [address] Scheduled Orders Name Type Priority Associated Diagnoses Orde r Schedule CBC Lab Routine Low testosterone Expected: 11/19/2024 (Approximate), Expi res: 02/20/2026 documented as of this encounter Goals Goal [...] of this encounter Visit Diagnoses Diagnosis Low testosterone- Primary documented in this encounter Additional Health [...] documented as of this encounter Care Teams Director Of Application Development Relationship Specialty Start Date End Date Vandana Urbina MD [address] [place] [address] PCP - General Internal Medicine 05/02/23 Lashay Maynard [place] [id number] Open Hearth Furnace Laborer Hot Dip Tinning Supervisor 05/31/21 Gracy Aguilar MD [facility] [address] [place] [address] Consulting Physician Infectious Diseases 03/26/23 Chuck Kaplan PA [address] [place] [address] [address] [place] [address] Physician Visor Installer Infectious Diseases 03/26/23 Maria Elena Lizarraga PA [address] [facility] [address] [place] [address] Physician Visor Installer Urology 03/09/24 documented as of this encounter
--- NOTE | 2024-10-16 10:30 | ECG_ITS ---
APPROVED REPORT Exam: Resting ECG HR:71 bpm ECG Measurements Heart Rate 71 AXES ID 175 P 20 QRSd 91 QRS -1 QT 380 T 4 QTc 402 Conclusion Normal sinus rhythm Normal axis Normal intervals No STEMI S waves in leads III and aVF Electronically signed by : Dalton Cristobal, 10/16/2024 17:34:41
--- OUTSIDE RECORDS SUMMARY | 2024-10-16 10:30 | XMS_ITS | Encounter Summary ---
Author Organization [facility] Address [address] [place] [address] Care Team Providers Care American Sign Language Teacher Name Role Phone Lashay Maynard Unavailable Unavailable Gracy Aguilar MD Unavailable [phone] Chuck Kaplan Unavailable [phone] Vandana Urbina MD Primary Care Provider [phone] Maria Elena Lizarraga Unavailable [phone] Reason for Visit * Reason Comments Med Refill Encounter Details Date Type Department Care Team (Late st Contact Info) Description 09/08/2024 [id number] [place] [address] Gracy Aguilar MD [address] [place] [address] [address] [place] [address] Anxiety Social History Tobacco Use Types Packs/Day Years [...] ways by your partner or ex-partner? No 03 / Within the last year, have y ou [...] How often do you attend chur or jew services? Never 05/02/2023 Do you belong to any clubs o r organizations such as evangelical groups, unions, fraternal or athletic groups, or [...] Recorded Patient Health Questionnaire-2 Score 0 09/08/2024 [facility] - Occupational Stress Questionnaire Answer Date [...] the money to buy more. Never true 03/25/20 25 Within the past 12 months, t [...] place to sleep or slept in a correction (including now)? No 11/05/2023 PHQ-9 Answer Date [...] any time in the past 12 m [facility], were you homeless or living in a correction (including now)? No 05/05/2024 Safety and Environment [...] first t mina in the morning (EYE-SUPERVISOR INSTRUMENT REPAIR) to steady your nerves or to get rid of a hangover? 0 06/20/2022 CAGE Questionnaire Score 0 023 Utilities Answer Date Recorded In the past 12 months has th [employer] gas, oil, or water [employer] threatened to shut off services in your [...] 5:50 PM STEPHENT Tabatha Sosa RN * Do you have serious difficulty walking or climbing stairs? Answer Date of Assessment Author No 06/28/2022 5:50 PM STEPHENT Tabatha Sosa RN * Because of a [...] Score 0 09/08/2024 10:56 AM Dede Sykes documented as of this encounter Mental Status [facility] [address], 2nd [place] [address] Clara Bartholomew PA [address] [place] [address] 10/27/2024 10:30 AM EDT Office Visit [facility] [address] [facility] [address] [place] [address] 10/29/2024 9:30 AM EDT Office Visit [facility] Medicine Specialties [address], 2[address] [place] [address] Nikkie Aguirre PA [address] [place] [address] 11/10/2024 11:00 AM EDT Office Visit [facility] Internal Medicine [address], 3rd [place] [address] Vandana Urbina MD [address] [place] [address] 11/16/2024 10:30 AM EDT Office Visit [facility] Urology [address], 2[address] [place] [address] Maria Elena Lizarraga PA [address] [place] [address] 11/19/2024 10:00 AM EDT Clinical Support [facility] Lab [address], 2[address] [place] [address] 11/26/2024 9:50 AM EDT Office Visit [facility] Urology [address], 2nd [place] [address] Nati Judge APRN, DNP [address] [place] [address] 12/08/2024 8:30 AM EDT Procedure Visit [facility] Orthopaedic Surgery & Sports Medicine [address] [facility], [address] [place] [address] Jonathan Armando MD [address] [facility] [address] [place] [address] 12/17/2024 3:00 PM EST Office Visit [facility] General Surgery [address], 1[address] [place] [address] Germain Botello MD [address] [place] [address] 01/11/2025 9:30 AM EST Clinical Support [facility] Lab [address] 2nd [place] [address] 01/18/2025 10:50 AM EST Office Visit [facility] Urology [address], 2nd [place] [address] Nati Judge APRN, DNP [address] [place] [address] 01/28/2025 1:30 PM EST Office Visit [facility] [address] [place] [address] Gracy Aguilar MD [address] [facility] [address] [place] [address] 03/15/2025 1:15 PM EST Office [facility] Advanced Eye Care [address] [place] [address] Renee Grhaam S, OD [address] [place] [address] 06/01/2025 11:30 AM EDT [facility] Support [facility] [address], 2nd [place] [address] 06/08/2025 1:40 PM EDT Office Visit [facility] Nephrology, Bone & Mineral Metabolism [address] [facility], [address] [place] [address] Marco Brandt MD [address] [place] [address] documented as of this encounter Goals Goal Patient Goal Type Associated Problems Recent Progress Patient-Stated? Author Patient to remain active in HIV care Care Plan Treatment Adherence On track( 1:48 PM EDT) Lisette Tom Patient to remain active on part B services/RW shaam-eligible Care Plan Treatment Adherence On track( 1:48 PM EDT) Lisette Tom Improve Knee Pain Care Plan Treatment Adherence On track( 1:51 PM EDT) Lisette Tom Note: Patient continues to take excellent care of his knee pain. He receives Gel Knee injections 2x per year. He reports having no knee pain. documented as of this encounter Visit Diagnoses Diagnosis Anxiety Anxiety state, unspecified documented in this encounter Additional Health Concerns Active Problems Noted Date Diagnosed Date Treatment Adherence 09/02/2024 Assessment Noted Time PHQ-9 Depression Total Score: 0 09/08/19 10:25 AM EDT A fall risk assessment has been complete d for the patient 09/08/2024 10:59 AM EDT A Body Mass Index follow-up plan has been documented for the patient 09/11/2024 10:02 PM EDT documented as of this encounter Care Teams American Sign Language Teacher Relationship Specialty Start Date End Date Vandana Urbina MD [address] [place] [address] PCP - General Internal Medicine 05/02/23 [place] [address] Library Information Technician Chief Medical Technologist 05/31/21 Gracy Aguilar MD [address] [facility] [address] [place] [address] Consulting Physician Infectious Diseases 03/26/23 Chuck Kaplan PA [facility] [address] [place] [address] Physician Vice President Of Recruiting Infectious Diseases 03/26/23 Maria Elean Lizarraga PA [address] [facility] [address] [place] [address] Physician Vice President Of Recruiting Urology 03/09/24 documented as of this encounter
--- OUTSIDE RECORDS SUMMARY | 2024-10-16 10:30 | XMS_ITS | Encounter Summary ---
Author Organization [facility] Address [address] [place] [address] Care Team Providers Care Hosiery Looper Name Role Phone CaesarLashay Arin Unavailable Unavailable Gracy Aguilar MD Unavailable [phone] Chuck Kaplan Unavailable [phone] Vandana Urbina MD Primary Care Provider [phone] Maria Elena Lizarraga Unavailable [phone] Encounter Details Date Type Department Care Team (Latest Contact Info) Description 08/24/2024 Travel Social History Tobacco Use Types Packs/Day [...] often do you attend chur ch or muslim services? Never 05/02/2023 Do you belong to any clubs o r organizations such as christianity groups, unions, fraternal or athletic groups, or [...] Recorded Patient Health Questionnaire-2 Score 0 08/24/2024 [facility] - Occupational Stress Questionnaire Answer Date Recorded [...] place to sleep or slept in a fci (including now)? No 11/05/2023 PHQ-9 Answer Date [...] were you homeless or living in a fci (including now)? No 05/05/2024 Safety and Environment [...] drink first t mina in the morning (EYE-MECHANICAL SOUND TECHNICIAN) to steady your nerves or to get rid of a hangover? 0 06/20/2022 CAGE Questionnaire Score 0 023 Utilities Answer Date Recorded In the past 12 months has th [employer], gas, oil, or water [employer] threatened to shut off services in your [...] Health Questionnaire-2 Score 0 08/24/2024 1:12 PM STEPHENT An Matthew LPN documented as of this [...] Description 10/19/2024 1:20 PM EDT Office Visit [facility] Medicine Specialties [address] 2nd [place] [address] Clara Bartholomew PA [address] [place] [address] 10/27/2024 10:30 AM EDT Office Visit [facility] [address] [facility] [address] [place] [address] 10/29/2024 9:30 AM EDT Office Visit [facility] Medicine Specialties [address] 2nd [place] [address] Nikkie Aguirre PA [address] [place] [address] 11/10/2024 11:00 AM EDT Office Visit [facility] Internal Medicine [address], 3rd [place] [address] Vandana Urbina MD [address] [place] [address] 11/16/2024 10:30 AM EDT Office Visit [facility] Urology [address], 2nd [place] [address] Maria Elena Lizarraga PA [address] [place] [address] 11/19/2024 10:00 AM EDT Clinical Support [facility] Lab [address], 2nd [place] [address] 11/26/2024 9:50 AM EDT Office Visit [facility] Urology [address] 2[address] [place] [address] Nati Judge, BEHAVIORAL SCIENTIST, DNP [address] [place] [address] 12/08/2024 8:30 AM EDT Procedure Visit [facility] Orthopaedic Surgery & Sports Medicine [address] [facility], [address] [place] [address] Jonathan Armando MD [address] [place] [address] 12/17/2024 3:00 PM EST Office Visit [facility] General Surgery [address], 1st [place] [address] Germain Botello MD [address] [place] [address] 01/11/2025 9:30 AM EST Clinical Support [facility] Lab [address], 2nd [place] [address] 01/18/2025 10:50 AM EST Office Visit [facility] Urology [address], 2nd [place] [address] Nati Judge, BEHAVIORAL SCIENTIST, DNP [address] [place] [address] 01/28/2025 1:30 PM EST Office [facility] [address] [facility] [place] [address] Gracy Aguilar MD [address] [facility] [address] [place] [address] 03/15/2025 1:15 PM EST Office Visit [facility] Eye Care [address] [place] [address] Graham Renee S, OD [address] [place] [address] 06/01/2025 11:30 AM EDT Clinical Support [facility] [address] [place] [address] 06/08/2025 1:40 PM EDT Office Visit [facility] Nephrology, Bone & Mineral Metabolism [address] [facility], [address] [place] [address] Marco Brandt MD [address] [place] [address] documented as of this encounter [...] documented as of this encounter Care Teams Hosiery Looper Relationship Specialty Start Date End Date Vandana Urbina MD [address] [place] [address] PCP - General Internal Medicine 05/02/23 Lashay Maynard [place] [phone] Personalized Living Assistant Network Contractor 05/31/21 Gracy Aguilar MD [employer] [address] [place] [address] Consulting Physician Infectious Diseases 03/26/23 Chuck Kaplan PA [address] [place] [address] [address] [place] [address] Physician Field Marketing Lead Infectious Diseases 03/26/23 Maira Elena Lizarraga PA [address] [facility] [address] [place] [address] Physician Field Marketing Lead Urology 03/09/24 documented as of this encounter
--- OUTSIDE RECORDS SUMMARY | 2024-10-16 10:30 | XMS_ITS | Encounter Summary ---
Author Organization [facility] Address [address] [place] [address] Care Team Providers Care Paper Stacker Name Role Phone CaesarLashay Arin Unavailable Unavailable Gracy Aguilar MD Unavailable [phone] Chuck Kaplan Unavailable [phone] Vadnana Urbina MD Primary Care Provider [phone] Maria Elena Lizarraga Unavailable [phone] Encounter Details Date Type Department Care Team (Latest Contact Info) Description 09/07/2024 Travel Social History Tobacco Use Types Packs/Day [...] often do you attend chur ch or quaker services? Never 05/02/2023 Do you belong to any clubs o r organizations such as scientology groups, unions, fraternal or athletic groups, or [...] Recorded Patient Health Questionnaire-2 Score 0 09/08/2024 [facility] - Occupational Stress Questionnaire Answer Date Recorded [...] drink first t mina in the morning (EYE-SENIOR CYTOTECHNOLOGIST) to steady your nerves or to get [...] pleasure in doing things Not at all 09/07/2024 10:25 AM Brent Li Feeling down, depressed, or hopeless Not at all 09/07/2024 10:25 AM Brent Li Patient Health Questionnaire -2 Score 0 09/07/2024 10:25 AM Brent Li * Question Answer Date of Assessment Author [...] television Not at all 09/07/2024 10:25 AM EDT Brent Guzman Moving or speaking so slowly that other people could have noticed? Or the opposite - being so fidgety or restless that you have been moving around a lot more than usual. Not at all 09/07/2024 10:25 AM EDT Brent Guzman Thoughts that you would be better off [...] Author No 06/28/2022 5:50 PM EDT Tabatha Sosa, RN documented in this encounter Plan of Treatment Upcoming Encounters Date Type Department Care Team (Late st Contact Info) Description 10/19/2024 1:20 PM EDT Office Visit [facility] Medicine Specialties [address] [place] [address] Clara Bartholomew PA [address] [place] [address] 10/27/2024 10:30 AM EDT Office [facility] [address] [facility] [address] [place] [address] 10/29/2024 9:30 AM EDT Office Visit [facility] Medicine Specialties [address] [place] [address] Nikkie Aguirre PA [address] [place] [address] 11/10/2024 11:00 AM EDT Office Visit [facility] Internal Medicine [address] 3rd [place] [address] Vandana Urbina MD [address] [place] [address] 11/16/2024 10:30 AM EDT Office Visit [facility] Urology [address] [place] [address] Maria Elena Lizarraga PA [address] [place] [address] 11/19/2024 10:00 AM EDT Clinical Support [facility] Lab [address] [place] [address] 11/26/2024 9:50 AM EDT Office Visit [facility] Urology [address] 2[address] [place] [address] Nati Judge, PATIENT PORTAL REPRESENTATIVE, DNP [address] [place] [address] 12/08/2024 8:30 AM EDT Procedure [facility] Orthopaedic Surgery & Sports Medicine [address] , [address] [place] [address] Jonathan Armando MD [address] [facility] [address] [place] [address] 12/17/2024 3:00 PM EST Office Visit [facility] General Surgery [address] 1[address] [place] [address] Germain Botello MD [address] [place] [address] 01/11/2025 9:30 AM EST Clinical Support [facility] Lab [address] [place] [address] 01/18/2025 10:50 AM EST Office Visit [facility] Urology [address] 2[address] [place] [address] Nati Judge P, PATIENT PORTAL REPRESENTATIVE, DNP [address] [place] [address] 01/28/2025 1:30 PM EST Office Visit [facility] [address] [facility] [place] [address] Gracy Aguilar MD [address] [facility] [address] [place] [address] 03/15/2025 1:15 PM EST Office Visit [facility] Advanced Eye Care [address] [place] [address] Renee Graham S, OD [address] [place] [address] 06/01/2025 11:30 AM EDT Clinical Support [facility] Lab [address] 2nd [place] [address] 06/08/2025 1:40 PM EDT Office Visit [facility] Nephrology, Bone & Mineral Metabolism [address] [facility], [address] [place] [address] Marco Brandt MD [address] [place] [address] documented as of this encounter Goals Goal Patient Goal Type Associated Problems Recent Progress Patient-Stated? Author Patient to remain active in HIV care Care Plan Treatment Adherence On track( 024 1:48 PM EDT) No Lisette Haywood Patient [...] documented as of this encounter Care Teams Paper Stacker Relationship Specialty Start Date End Date Vandana Urbina MD [address] [facility] [address] [place] [address] PCP - General Internal Medicine 05/02/23 Lashay Maynard [place] [phone] Supervisor Seaming Wall Taper 05/31/21 Gracy Aguilar MD [address] [place] [address] Consulting Physician Infectious Diseases 03/26/23 Chuck Kaplan PA [address] [place] [address] [address] [place] [address] Physician Dye Machine Tender Infectious Diseases 03/26/23 Maria Elena Lizarraga PA [address] [place] [address] Physician Dye Machine Tender Urology 03/09/24 documented as of this encounter
--- OUTSIDE RECORDS SUMMARY | 2024-10-16 10:30 | XMS_ITS | Encounter Summary ---
Author Organization [facility] Address [address] [place] [address] Care Team Providers Care Deputy Court Name Role Phone CaesarLashay Arin Unavailable Unavailable Gracy Aguilar MD Unavailable [phone] Chuck Kaplan Unavailable [phone] Vandana Urbina MD Primary Care Provider [phone] Maria Elena Lizarraga Unavailable [phone] Encounter Details Date Type Department Care Team (Latest Contact Info) Description 09/08/2024 Travel Social History Tobacco Use Types Packs/Day [...] often do you attend chur ch or sabianism services? Never 05/02/2023 Do you belong to any clubs o r organizations such as episcopalian groups, unions, fraternal or athletic groups, or [...] Patient Health Questionnaire-2 Score 0 09/08/2024 [facility] - Occupational Stress Questionnaire [...] place to sleep or slept in a usp (including now)? No 11/05/2023 PHQ-9 Answer Date [...] were you homeless or living in a usp (including now)? No 05/05/2024 Safety and Environment [...] drink first t mina in the morning (EYE-FIGURE CLERK) to steady your nerves or to get [...] [facility] Medicine Specialties [address] [place] [address] Clara Bartholomew PA [address] [place] [address] 10/27/2024 10:30 AM EDT Office Visit [facility] [address] [facility] [address] [place] [address] 10/29/2024 9:30 AM EDT Office Visit [facility] Medicine Specialties [address] [place] [address] Nikkie Aguirre PA [address] [place] [address] 11/10/2024 11:00 AM EDT Office Visit [facility] Internal Medicine [address], 3rd [place] [address] Vandana Urbina MD [address] [place] [address] 11/16/2024 10:30 AM EDT Office Visit [facility] Urology [address], [address] [place] [address] Maria Elena Lizarraga PA [address] [place] [address] 11/19/2024 10:00 AM EDT Clinical Support [facility] Lab [address] [place] [address] 11/26/2024 9:50 AM EDT Office Visit [facility] Urology [address] [place] [address] Nati Judge, VENEER PRODUCTION MACHINE OPERATOR, DNP [address] [place] [address] 12/08/2024 8:30 AM EDT Procedure Visit [facility] Orthopaedic Surgery & Sports Medicine [address] [facility], [address] [place] [address] Jonathan Armando MD [address] [place] [address] 12/17/2024 3:00 PM EST Office Visit [facility] General Surgery [address] [place] [address] Germain Botello MD [address] [place] [address] 01/11/2025 9:30 AM EST Clinical Support [facility] Lab [address] [place] [address] 01/18/2025 10:50 AM EST Office Visit [facility] Urology [address] 2[address] [place] [address] Nati Judge P, VENEER PRODUCTION MACHINE OPERATOR, DNP [address] [place] [address] 01/28/2025 1:30 PM EST Office Visit [facility] [address] [place] [address] Gracy Aguilar MD [address] [facility] [address] [place] [address] 03/15/2025 1:15 PM EST Office Visit [facility] Advanced Eye Care [address] [place] [address] Renee Graham S, OD [address] [place] [address] 06/01/2025 11:30 AM EDT [facility] [address] [place] [address] 06/08/2025 1:40 PM EDT Office Visit [facility] Nephrology, Bone & Mineral Metabolism [address] [facility], [address] [place] [address] Marco Brandt MD [address] [place] [address] documented as of this encounter Goals Goal Patient Goal Type Associated Problems Recent Progress Patient-Stated? Author Patient to remain active in HIV care Care Plan Treatment Adherence On track( 1:48 PM EDT) Lisette Tom Patient to remain active on part B services/RW shmaa-eligible Care Plan Treatment Adherence On track( 1:48 [...] documented as of this encounter Care Teams Deputy Court Relationship Specialty Start Date End Date Vandana Urbina MD [address] [place] [address] PCP - General Internal Medicine 05/02/23 [place] [address] Information Coder Mixing And Molding Machine Operator 05/31/21 Gracy Aguilar MD [address] [place] [address] [address] [place] [address] Consulting Physician Infectious Diseases 03/26/23 Chuck Kaplan PA [address] [place] [address] [address] [place] [address] Physician Pointing Machine Operator Infectious Diseases 03/26/23 Maria Elena Lizarraga PA [address] [facility] [address] [place] [address] Physician Pointing Machine Operator Urology 03/09/24 documented as of this encounter
--- OUTSIDE RECORDS SUMMARY | 2024-10-16 10:30 | XMS_ITS | Encounter Summary ---
Author Organization [facility] Address [address] [place] [address] Care Team Providers Care Hawk Missile System Crewmember Name Role Phone Lashay Maynard Arni Unavailable Unavailable Gracy Aguilar MD Unavailable Chuck Kaplan Unavailable [phone] Vandana Urbina MD Primary Care Provider [phone] Maria Elena Lizarraga Unavailable [phone] Encounter Details Date Type Department Care Team (Late st Contact Info) Description 08/19/2024 [facility]phone [facility] [address], 2nd [place] [address] Nati Judge, RUBY, DNP [address] [place] [address] Social History Tobacco Use Types [...] often do you attend chur ch or mandaeism services? Never 05/02/2023 Do you belong to any clubs o r organizations such as catholic groups, unions, fraternal or athletic groups, or [...] Recorded Patient Health Questionnaire-2 Score 0 07/15/2024 [facility] - Occupational Stress Questionnaire Answer [...] place to sleep or slept in a prison (including now)? No 11/05/2023 PHQ-9 Answer Date [...] any time in the past 12 m [facility], were you homeless or living in a prison (including now)? No 05/05/2024 Safety and Environment [...] drink first t mina in the morning (EYE-RECRUITING SPECIALIST) to steady your nerves or to get rid of a hangover? 0 06/20/2022 CAGE Questionnaire Score 0 023 Utilities Answer Date Recorded In the past 12 months has th Qool, gas, oil, or water [employer] threatened to shut off services in your [...] 5:50 PM STEPHENT Tabatha Sosa RN documented as of this encounter Mental Status * Because of a physical, mental, or emotional condition, do you have serious difficulty concentrating, remembering, or making decisions? (5 years old or older) Answer Entry Date Author No 06/28/2022 5:50 PM Tabatha Mcintyre RN documented in this encounter Miscellaneous Notes * Telephone Encounter - Karly Kirkland - 08/19/2024 3:47 PM EDT 08/19/2024 Called and confirmed the patients appointment labs and follow up appointment with Nati Judge, gave times, dates and locations,. [facility] lab on 11/19/2024 at 10:00 am. [facility] Urology appointment with Nati Judge on 11/26/2024 at 9:50 am. KJa documented in this encounter Plan of Treatment Upcoming Encounters Date Type Department Care Team (Late st Contact Info) Description 10/19/2024 1:20 PM EDT Office Visit [facility] Medicine Specialties [address], 2[address] [place] [address] Clara Bartholomew PA [address] [place] [address] 10/27/2024 10:30 AM EDT Office Visit [facility] [address] [facility] [place] [address] [place] [address] 10/29/2024 9:30 AM EDT Office Visit [facility] Medicine Specialties [address] 2[address] [place] [address] Nikkie Aguirre PA [address] [place] [address] 11/10/2024 11:00 AM EDT Office Visit [facility] Internal Medicine [address], 3rd [place] [address] Vandana Urbina MD [address] [place] [address] 11/16/2024 10:30 AM EDT Office Visit [facility] Urology [address], 2[address] [place] [address] Maria Elena Lizarraga PA [address] [place] [address] 11/19/2024 10:00 AM EDT Clinical Support [facility] Lab [address], 2nd [place] [address] 11/26/2024 9:50 AM EDT Office Visit [facility] Urology [address], 2[address] [place] [address] Nati Judge APRN, DNP [address] [place] [address] 12/08/2024 8:30 AM EDT Procedure Visit [facility] Orthopaedic Surgery & Sports Medicine [address] [facility], [address] [place] [address] Jonathan Armando MD [address] [facility] [address] [place] [address] 12/17/2024 3:00 PM EST Office Visit [facility] General Surgery [address], 1st [place] [address] Germain Botello MD [address] [place] [address] 01/11/2025 9:30 AM EST Clinical Support [facility] Lab [address], 2[address] [place] [address] 01/18/2025 10:50 AM EST Office Visit [facility] Urology [address], 2nd [place] [address] Nati Judge APRN, DNP [address] [place] [address] 01/28/2025 1:30 PM EST Office Visit [address] [address] Gracy Aguilar MD [address] [facility] [address] [place] [address] 03/15/2025 1:15 PM EST Office Visit [facility] Advanced Eye Care [address] [place] [address] Renee Graham S, OD [address] [place] [address] 06/01/2025 11:30 AM EDT [facility] [address], 2nd [place] [address] 06/08/2025 1:40 PM EDT Office Visit [facility] Nephrology, Bone & Mineral Metabolism [address] [facility], [address] [place] [address] Marco Brandt MD [address] [place] [address] documented as of this encounter [...] documented as of this encounter Care Teams Hawk Missile System Crewmember Relationship Specialty Start Date End Date Vandana Urbina MD [address] [place] [address] PCP - General Internal Medicine 05/02/23 [place] [address] Optical Effects Camera Operator Patch Washer 05/31/21 Gracy Aguilar MD [address] [place] [address] [address] [place] [address] Consulting Physician Infectious Diseases 03/26/23 Chuck Kaplan PA [address] [place] [address] [address] [place] [address] Physician Front Office Secretary Infectious Diseases 03/26/23 Maria Elena Lizarraga PA [address] [place] [address] Physician Front Office Secretary Urology 03/09/24 documented as of this encounter
--- OUTSIDE RECORDS SUMMARY | 2024-10-16 10:30 | XMS_ITS | Encounter Summary ---
Author Organization [facility] Address [address] [place] [address] Care Team Providers Care Doll Repairer Name Role Phone CaesarLashay Arin Unavailable Unavailable Gracy Aguilar MD Unavailable [phone] Chuck Kaplan Unavailable [phone] Vandana Urbina MD Primary Care Provider [phone] Maria Elena Lizarraga Unavailable [phone] Reason for Visit * Reason Comments Case Management Encounter Details Date Type Department Care Team (Late st Contact Info) Description 10/05/2024 Patient Outreach [facility] [address] [place] [address] Yaritza Chandra Case Management Social History Tobacco Use Types Packs/Day Years [...] week 05/02/2023 How often do you attend [facility] or judaism services? Never 05/02/2023 Do you belong to any clubs o r organizations such as gnosticist groups, unions, fraternal or athletic groups, or [...] Recorded Patient Health Questionnaire-2 Score 0 09/08/2024 [facility] - Occupational Stress Questionnaire Answer Date [...] any time in the past 12 m [facility], were you homeless or living in [...] drink first t mina in the morning (EYE-LOOM MECHANIC) to steady your nerves or to get rid of a hangover? 0 06/20/2022 CAGE Questionnaire Score 0 023 Utilities Answer Date Recorded In the past 12 months has th e electric, gas, oil, or water company [...] encounter Miscellaneous Notes * Progress Notes - Yaritza Chandra - 10/05/2024 11:48 AM EDT P: Clinic Visit//Coordinating Access to CARE D/A: Pt presents to clinic for a lab appt. MCM met with pt to assess for CM needs. Pt requested gascards. MCM provided $25 in gas cards for [employer]. Pt signed receipt for card. Duration 15min JASON Crocker documented in this encounter Plan of Treatment Upcoming Encounters Date Type Department Care Team (Late st Contact Info) Description 10/19/2024 1:20 PM EDT Office Visit [facility] Medicine Specialties [address] 2nd [place] [address] Clara Bartholomew PA [address] [place] [address] 10/27/2024 10:30 AM EDT Office Visit [facility] [address] [facility] [address] [place] [address] 10/29/2024 9:30 AM EDT Office Visit [facility] Medicine Specialties [address], 2nd [place] [address] Nikkie Aguirre PA [address] [place] [address] 11/10/2024 11:00 AM EDT Office Visit [facility] Internal Medicine [address], 3rd [place] [address] Vandana Urbina MD [address] [place] [address] 11/16/2024 10:30 AM EDT Office Visit [facility] Urology [address], 2nd [place] [address] Maria Elena Lizarraga PA [address] [place] [address] 11/19/2024 10:00 AM EDT Clinical Support [facility] Lab [address], 2nd [place] [address] 11/26/2024 9:50 AM EDT Office Visit [facility] Urology [address], 2nd [place] [address] Nati Judge, RUBY, DNP [address] [place] [address] 12/08/2024 8:30 AM EDT Procedure Visit [facility] Orthopaedic Surgery & Sports Medicine [address] [facility], [address] [place] [address] Jonathan Armando MD [address] [place] [address] 12/17/2024 3:00 PM EST Office Visit [facility] General Surgery [address], 1st [place] [address] Germain Botello MD [address] [place] [address] 01/11/2025 9:30 AM EST Clinical Support [facility] Lab [address], 2nd [place] [address] 01/18/2025 10:50 AM EST Office Visit [facility] Urology [address], 2nd [place] [address] Nati Judge APRN, DNP [address] [place] [address] 01/28/2025 1:30 PM EST Office Visit [facility] [address] [place] [address] Gracy Aguilar MD [address] [facility] [address] [place] [address] 03/15/2025 1:15 PM EST Office Visit [facility] Advanced Eye Care [address] [place] [address] Renee Graham S, OD [address] [place] [address] 06/01/2025 11:30 AM EDT [facility] [address] 2nd [place] [address] 06/08/2025 1:40 PM EDT Office Visit [facility] Nephrology, Bone & Mineral Metabolism [address] [facility], [address] [place] [address] Marco Brandt MD [address] [place] [address] documented as of this encounter [...] documented as of this encounter Care Teams Doll Repairer Relationship Specialty Start Date End Date Vandana Urbina MD [address] [place] [address] PCP - General Internal Medicine 05/02/23 Lashya Maynard [place] [id number] Digital Sales Executive Ampoule Washing Machine Operator 05/31/21 Gracy Aguilar MD [facility] [address] [place] [address] Consulting Physician Infectious Diseases 03/26/23 Chuck Kaplan PA [address] [place] [address] [address] [place] [address] Physician Test Facility Engineer Infectious Diseases 03/26/23 Maria Elena Lizarraga PA [address] [facility] [address] [place] [address] Physician Test Facility Engineer Urology 03/09/24 documented as of this encounter
--- OUTSIDE RECORDS SUMMARY | 2024-10-16 10:30 | XMS_ITS | Encounter Summary ---
Author Organization [facility] Address [address] [place] [address] Care Team Providers Care Metal Room Dental Technician Name Role Phone CaesarLashay Arin Unavailable Unavailable Gracy Aguilar MD Unavailable [phone] Chuck Kaplan Unavailable [phone] Vandana Urbina MD Primary Care Provider [phone] Maria Elena Lizarraga Unavailable [phone] Encounter Details Date Type Department Care Team (Latest Contact Info) Description 09/01/2024 Travel Social History Tobacco Use Types Packs/Day [...] often do you attend chur ch or gnosticist services? Never 05/02/2023 Do you belong to any clubs o r organizations such as yarsani groups, unions, fraternal or athletic groups, or [...] Recorded Patient Health Questionnaire-2 Score 0 08/24/2024 [facility] - Occupational Stress Questionnaire Answer Date [...] place to sleep or slept in a senior care (including now)? No 11/05/2023 PHQ-9 Answer Date [...] were you homeless or living in a senior care (including now)? No 05/05/2024 Safety and Environment [...] drink first t mina in the morning (EYE-SOLUTION MANAGER) to steady your nerves or to [...] Description 10/19/2024 1:20 PM EDT Office Visit [facility] Medicine Specialties [address] 2nd [place] [address] Clara Bartholmoew PA [address] [place] [address] 10/27/2024 10:30 AM EDT Office Visit [facility] [address] [facility] [address] [place] [address] 10/29/2024 9:30 AM EDT Office Visit [facility] Medicine Specialties [address] 2nd [place] [address] Nikkie Aguirre, PA [address] [place] [address] 11/10/2024 11:00 AM EDT Office Visit [facility] Internal Medicine [address], 3rd [place] [address] Vandana Urbina MD [address] [place] [address] 11/16/2024 10:30 AM EDT Office Visit [facility] Urology [address], 2[address] [place] [address] Maria Elena Lizarraga PA [address] [place] [address] 11/19/2024 10:00 AM EDT Clinical Support [facility] Lab [address] 2[address] [place] [address] 11/26/2024 9:50 AM EDT Office Visit [facility] Urology [address] [place] [address] Nati Judge, PORT CRANE OPERATOR, DNP [address] [place] [address] 12/08/2024 8:30 AM EDT Procedure [facility] Orthopaedic Surgery & Sports Medicine [address] [facility], [address] [place] [address] Jonathan Armando MD [address] [facility] [address] [place] [address] 12/17/2024 3:00 PM EST Office Visit [facility] General Surgery [address] 1[address] [place] [address] Germain Botello MD [address] [place] [address] 01/11/2025 9:30 AM EST Clinical Support [facility] Lab [address] [place] [address] 01/18/2025 10:50 AM EST Office Visit [facility] Urology [address], 2[address] [place] [address] Nati Judge P, PORT CRANE OPERATOR, DNP [address] [place] [address] 01/28/2025 1:30 PM EST Office Visit [facility] [address] [facility] [place] [address] Gracy Aguilar MD [address] [facility] [address] [place] [address] 03/15/2025 1:15 PM EST Office Visit [facility] Advanced Eye Care [address] [place] [address] Renee Graham S, OD [address] [place] [address] 06/01/2025 11:30 AM EDT Clinical Support [facility] Lab [address] 2[address] [place] [address] 06/08/2025 1:40 PM EDT Office Visit [facility] Nephrology, Bone & Mineral Metabolism [address] [place] [address] Marco Brandt MD [address] [place] [address] documented as of this encounter [...] documented as of this encounter Care Teams Metal Room Dental Technician Relationship Specialty Start Date End Date Vandana Urbina MD [address] [facility] [address] [place] [address] PCP - General Internal Medicine 05/02/23 [place] [address] Papier Mache Molder Manager Of Housekeeping 05/31/21 Gracy Aguilar MD [address] [facility] [address] [place] [address] Consulting Physician Infectious Diseases 03/26/23 Chuck Kaplan PA [address] [facility] [address] [place] [address] Physician Operations Business Partner Infectious Diseases 03/26/23 Maria Elena Lizarraga PA [address] [facility] [address] [place] [address] Physician Operations Business Partner Urology 03/09/24 documented as of this encounter
--- OUTSIDE RECORDS SUMMARY | 2024-10-16 10:30 | XMS_ITS | Encounter Summary ---
Author Organization [facility] Address [address] [place] [address] Care Team Providers Care Adaptive Physical Education Teacher Name Role Phone Lashay Maynard Unavailable Unavailable Gracy Aguilar MD Unavailable [phone] Chuck Kaplan Unavailable [phone] Vandana Urbina MD Primary Care Provider [phone] Maria Elena Lizarraga Unavailable [phone] Reason for Visit * Reason Comments Case Management Encounter Details Date Type Department Care Team (Late st Contact Info) Description 09/08/[address] [facility] [address] [place] [address] [place] [address] Case Management Social History Tobacco Use Types [...] any clubs o r organizations such as confucianism groups, unions, fraternal or athletic groups, or [...] Recorded Patient Health Questionnaire-2 Score 0 09/08/2024 [facility] of Occupat ional Health - Occupational Stress [...] to sleep or slept in a senior living (including now)? No 11/05/2023 PHQ-9 Answer Date [...] you homeless or living in a senior living (including now)? No 05/05/2024 Safety and Environment [...] drink first t mina in the morning (EYE-CIGARETTE PAPER TESTER) to steady your nerves or to get rid of a hangover? 0 06/20/2022 CAGE Questionnaire Score 0 023 Utilities Answer Date Recorded In the past 12 months has e [employer], gas, oil, or water [employer] threatened to shut off services in your [...] things Not at all 09/08/2024 10:56 AM STEPHENT Dede Cheung Feeling down, depressed, or hopeless Not at all 09/08/2024 10:56 AM STEPHENT Dede Cheung Patient Health Questionnaire -2 Score [...] encounter Miscellaneous Notes * Progress Notes - Lashay Maynard - 09/08/2024 11:59 AM EDT [facility] Social Work Clinic Visit Note Base Draw Operator met with Michael Barahona during clinic visit with: HIV Provider: Dr. Aguilar Duration: 30 minutes Michael Barahona's [facility] Services Eligibility expires on 03/13/2025 Assigned Base Draw Operator: JASON Crowley [facility] Part B Recertification Completed at this visit: No Recertification completed Recertification Documents Provided: None Recertification Documents Needed: None [facility] HIV Care Plan Completed? no Notes: Pt was seen by Dr. Aguilar on this date. MCM met with pt briefly after the appointment. Pt was appropriate throughout interaction. MCM assessed for transportation barrier. Pt requested gas cards. [facility] coordinated access to transportation resource by providing pt with gas cards ($25.00). Pt declined other needs at this time. JASON Crowley documented in this encounter Plan of Treatment Upcoming Encounters Date Type Department Care Team (Late st Contact Info) Description 10/19/2024 1:20 PM EDT Office Visit [facility] Medicine Specialties [address] 2nd [place] [address] Clara Bartholomew PA [address] [place] [address] 10/27/2024 10:30 AM EDT Office Visit [facility] [address] [facility] [address] [place] [address] 10/29/2024 9:30 AM EDT Office Visit [facility] Medicine Specialties [address] [place] [address] Nikkie Aguirre PA [address] [place] [address] 11/10/2024 11:00 AM EDT Office Visit [facility] Internal Medicine [address], 3rd [place] [address] Vandana Urbina MD [address] [place] [address] 11/16/2024 10:30 AM EDT Office Visit [facility] Urology [address], [address] [place] [address] Maria Elena Lizarraga PA [address] [place] [address] 11/19/2024 10:00 AM EDT Clinical Support [facility] Lab [address] [place] [address] 11/26/2024 9:50 AM EDT Office Visit [facility] Urology [address], 2[address] [place] [address] Nati Judge, HEALTH INFORMATICS ADVISOR, DNP [address] [place] [address] 12/08/2024 8:30 AM EDT Procedure Visit [facility] Orthopaedic Surgery & Sports Medicine [address] [place] [address] Jonathan Armando MD [address] [place] [address] 12/17/2024 3:00 PM EST Office Visit [facility] General Surgery [address] [place] [address] Germain Botello MD [address] [place] [address] 01/11/2025 9:30 AM EST Clinical Support [facility] Lab [address] [place] [address] 01/18/2025 10:50 AM EST Office Visit [facility] Urology [address] 2[address] [place] [address] Nati Judge, HEALTH INFORMATICS ADVISOR, DNP [address] [place] [address] 01/28/2025 1:30 PM EST Office [facility] [address] [facility] [place] [address] Gracy Aguilar MD [address] [facility] [address] [place] [address] 03/15/2025 1:15 PM EST Office Visit [facility] Advanced Eye Care [address] [place] [address] Renee Graham S, OD [address] [place] [address] 06/01/2025 11:30 AM EDT Clinical Support [facility] Lab [address], [address] [place] [address] 06/08/2025 1:40 PM EDT Office [facility] Nephrology, Bone & Mineral Metabolism [address] [facility], [address] [place] [address] Marco Brandt MD [address] [place] [address] documented as of this encounter [...] documented as of this encounter Care Teams Adaptive Physical Education Teacher Relationship Specialty Start Date End Date Vandana Urbina MD [address] [place] [address] PCP - General Internal Medicine 05/02/23 [place] [address] Tax Services Specialist Soil Technician 05/31/21 Gracy Aguilar MD [address] [place] [address] [address] [place] [address] Consulting Physician Infectious Diseases 03/26/23 Chuck Kaplan PA [address] [place] [address] [address] [place] [address] Physician Tire Vulcanizer Infectious Diseases 03/26/23 Maria Elena Lizarraga PA [address] [place] [address] Physician Tire Vulcanizer Urology 03/09/24 documented as of this encounter
--- OUTSIDE RECORDS SUMMARY | 2024-10-16 10:30 | XMS_ITS | Encounter Summary ---
Author Organization [facility] Address [address] [place] [address] Care Team Providers Care Electrician'S Helper Name Role Phone CaesarLashay Arin Unavailable Unavailable Gracy Aguilar MD Unavailable [phone] Chuck Kaplan Unavailable [phone] Vandana Urbina MD Primary Care Provider [phone] Maria Elena Lizarraga Unavailable [phone] Encounter Details Date Type Department Care Team (Latest Contact Info) Description 10/05/2024 Travel Social History Tobacco Use Types Packs/Day [...] often do you attend chur ch or taoist services? Never 05/02/2023 Do you belong to any clubs o r organizations such as yazdanism groups, unions, fraternal or athletic groups, or [...] Recorded Patient Health Questionnaire-2 Score 0 09/08/2024 [facility] - Occupational Stress Questionnaire Answer [...] place to sleep or slept in a half-way (including now)? No 11/05/2023 PHQ-9 Answer Date [...] were you homeless or living in a half-way (including now)? No 05/05/2024 Safety and Environment [...] drink first t mina in the morning (EYE-INTERLOCKER MAINTAINER) to steady your nerves or to get [...] Description 10/19/2024 1:20 PM EDT Office Visit [facility] Medicine Specialties [address] 2[address] [place] [address] Clara Bartholomew PA [address] [place] [address] 10/27/2024 10:30 AM EDT Office Visit [facility] [address] [facility] [address] [place] [address] 10/29/2024 9:30 AM EDT Office Visit [facility] Medicine Specialties [address] 2nd [place] [address] Nikkie Aguirre, PA [address] [place] [address] 11/10/2024 11:00 AM EDT Office Visit [facility] Internal Medicine [address], 3rd [place] [address] Vandana Urbina MD [address] [place] [address] 11/16/2024 10:30 AM EDT Office Visit [facility] Urology [address], 2nd [place] [address] Maria Elena Lizarraga PA [address] [place] [address] 11/19/2024 10:00 AM EDT Clinical Support [facility] Lab [address] 2[address] [place] [address] 11/26/2024 9:50 AM EDT Office Visit [facility] Urology [address], 2nd [place] [address] Nati Judge, PRINT SUPPORT SPECIALIST, DNP [address] [place] [address] 12/08/2024 8:30 AM EDT Procedure Visit [facility] [address] [facility], [address] [place] [address] Jonathan Armando MD [address] [facility] [address] [place] [address] 12/17/2024 3:00 PM EST Office Visit [facility] General Surgery [address], 1st [place] [address] Germain Botello MD [address] [place] [address] 01/11/2025 9:30 AM EST Clinical Support [facility] Lab [address] 2nd [place] [address] 01/18/2025 10:50 AM EST Office Visit [facility] Urology [address], 2nd [place] [address] Nati Judge P, PRINT SUPPORT SPECIALIST, DNP [address] [place] [address] 01/28/2025 1:30 PM EST Office Visit [facility] [address] [facility] [place] [address] Gracy Aguilar MD [address] [facility] [address] [place] [address] 03/15/2025 1:15 PM EST Office Visit [facility] [address] [place] [address] Renee Graham S, OD [address] [place] [address] 06/01/2025 11:30 AM EDT Clinical Support [facility] Lab [address] 2nd [place] [address] 06/08/2025 1:40 PM EDT Office Visit [facility] Nephrology, Bone & Mineral Metabolism [address] [place] [address] Marco Brandt MD [address] [place] [address] documented as of this [...] documented as of this encounter Care Teams Electrician'S Helper Relationship Specialty Start Date End Date Vandana Urbina MD [address] [facility] [address] [place] [address] PCP - General Internal Medicine 05/02/23 [place] [address] Plywood Scarfer Tender Manager Nursing Home 05/31/21 Gracy Aguilar MD [address] [facility] [address] [place] [address] Consulting Physician Infectious Diseases 03/26/23 Chuck Kaplan PA [address] [facility] [address] [place] [address] Physician Senior Database Administrator Infectious Diseases 03/26/23 Maria Elena Lizarraga PA [address] [facility] [address] [place] [address] Physician Senior Database Administrator Urology 03/09/24 documented as of this encounter
--- OUTSIDE RECORDS SUMMARY | 2024-10-16 10:30 | XMS_ITS | Encounter Summary ---
Author Organization [facility] Address [address] [place] [address] Care Team Providers Care Him Analyst Name Role Phone CaesarLashay Arin Unavailable Unavailable Gracy Aguilar MD Unavailable [phone] Chuck Kaplan Unavailable [phone] Vandana Urbina MD Primary Care Provider [phone] Maria Elena Lizarraga Unavailable [phone] Encounter Details Date Type Department Care Team (Late st Contact Info) Description 09/01/2024 Orders Only External Location [address] [place] [address] Provider, External Social History Tobacco Use Types Packs/Day Years [...] often do you attend chur ch or faith services? Never 05/02/2023 Do you belong to any clubs o r organizations such as nondenominational groups, unions, fraternal or athletic groups, or [...] Recorded Patient Health Questionnaire-2 Score 0 09/08/2024 [facility] - Occupational Stress Questionnaire Answer [...] place to sleep or slept in a long term (including now)? No 11/05/2023 PHQ-9 Answer Date [...] any time in the past 12 m [facility], were you homeless or living in a long term (including now)? No 05/05/2024 Safety and Environment [...] drink first t mina in the morning (EYE-CONSTRUCTION SITE MANAGER) to steady your nerves or to [...] Description 10/19/2024 1:20 PM EDT [facility] [address] 2nd [place] [address] Clara Bartholomew PA [address] [place] [address] 10/27/2024 10:30 AM EDT Office Visit [facility] [address] [facility] [address] [place] [address] 10/29/2024 9:30 AM EDT Office Visit [facility] Medicine Specialties [address] 2[address] [place] [address] Nikkie Aguirre PA [address] [place] [address] 11/10/2024 11:00 AM EDT Office Visit [facility] Internal Medicine [address], 3rd [place] [address] Vandana Urbina MD [address] [place] [address] 11/16/2024 10:30 AM EDT Office Visit [facility] Urology [address], 2nd [place] [address] Maria Elena Lizarraga PA [address] [place] [address] 11/19/2024 10:00 AM EDT Clinical Support [facility] Lab [address] 2[address] [place] [address] 11/26/2024 9:50 AM EDT Office Visit [facility] Urology [address] 2[address] [place] [address] Nati Judge, BANQUET DIRECTOR, DNP [address] [place] [address] 12/08/2024 8:30 AM EDT Procedure Visit [facility] Orthopaedic Surgery & Sports Medicine [address] [facility], [address] [place] [address] Jonathan Armando MD [address] [place] [address] 12/17/2024 3:00 PM EST Office Visit [facility] General Surgery [address], 1st [place] [address] Germain Botello MD [address] [place] [address] 01/11/2025 9:30 AM EST Clinical Support [facility] Lab [address] [place] [address] 01/18/2025 10:50 AM EST Office Visit [facility] Urology [address], 2[address] [place] [address] Nati Judge P, BANQUET DIRECTOR, DNP [address] [place] [address] 01/28/2025 1:30 PM EST Office Visit [facility] [address] [facility] [place] [address] Gracy Aguilar MD [address] [facility] [address] [place] [address] 03/15/2025 1:15 PM EST Office Visit [facility] [address] [place] [address] Renee Graham S, OD [address] [place] [address] 06/01/2025 11:30 AM EDT Clinical Support [facility] Lab [address] [place] [address] 06/08/2025 1:40 PM EDT Office Visit [facility] Nephrology, Bone & Mineral Metabolism [address], [address] [place] [address] Marco Brandt MD [address] [place] [address] documented as of this encounter [...] Treatment Adherence On track( 1:51 PM EDT) No Lisette Haywood Note: Patient continues to take excellent care of his knee pain. He receives Gel Knee injections 2x per year. He reports having no knee pain. documented as of this encounter Procedures Procedure Name Priority Date/Time Associated Diagnosis Comments POC ULTRASOUND 09/01/2024 documented in this encounter Results * POC Imaging (09/01/2024) Anatomical Region Laterality Modality Pelvis Other 09/01/2024 us External Provider IMG POINT OF CARE ULTRASOUND F inal Result documented in this encounter Visit Diagnoses Not on filedocumented in this encounter Additional Health Concerns Active Problems Noted Date Diagnosed Date Treatment Adherence 09/02/2024 Assessment Noted Time PHQ-9 Depression Total Score: 0 05/13/19 25 10:43 AM EDT A fall risk assessment has been complete d for the patient 09/01/2024 8:36 AM EDT A Body Mass Index follow-up plan has been documented for the patient 09/02/2024 12:09 PM EDT documented as of this encounter Care Teams Him Analyst Relationship Specialty Start Date End Date Vandana Urbina MD [address] [place] [address] PCP - General Internal Medicine 05/02/23 [place] [address] Electronic Parts Designer Bicycle Technician 05/31/21 Gracy Aguilar MD [address] [place] [address] [address] [place] [address] Consulting Physician Infectious Diseases 03/26/23 Chuck Kaplan PA [address] [place] [address] [address] [place] [address] Physician Steel Erecting Pusher Infectious Diseases 03/26/23 Maria Elena Lizarraga PA [address] [facility] [address] [place] [address] Physician Steel Erecting Pusher Urology 03/09/24 documented as of this encounter
--- OUTSIDE RECORDS SUMMARY | 2024-10-16 10:30 | XMS_ITS | Encounter Summary ---
Author Organization [facility] Address [address] [place] [address] Care Team Providers Care Saw Superintendent Name Role Phone Lashay Maynard Unavailable Unavailable Gracy Aguilar MD Unavailable [phone] Chuck Kaplan Unavailable [phone] Vandana Urbina MD Primary Care Provider [phone] Maria Elena Lizarraga Unavailable [phone] Reason for Visit * Reason Comments Case Management Encounter Details Date Type Department Care Team (Late st Contact Info) Description 09/02/2024 Telephone [facility] [address] [place] [address] [place] [address] Case Management Social History Tobacco Use Types [...] How often do you attend chur or synagogue services? Never 05/02/2023 Do you belong to any clubs o r organizations such as mandaeism groups, unions, fraternal or athletic groups, or [...] Recorded Patient Health Questionnaire-2 Score 0 08/24/2024 [facility] - Occupational [...] place to sleep or slept in a [place] health care facility (including now)? No 11/05/2023 PHQ-9 Answer Date [...] any time in the past 12 m [facility], were you homeless or living in a [place] health care facility (including now)? No 05/05/2024 Safety and Environment [...] drink first t mina in the morning (EYE-HAND METHOD LASTING MACHINE OPERATOR) to steady your nerves or to [...] * Progress Notes - Lashay Maynard - 09/02/2024 2:46 PM EDT P: Care Plan Review Duration: 30 Minutes D: [facility] performed brief chart review and found pt is due for a 6 month individualized care plan (ICP) review. [facility] contacted via telephone to complete ICP review. Pt was appropriate throughout interaction. MCM reviewed current goals on ICP with pt. Pt was agreeable to continuing with same goals. Pt has maintained treatment adherence by attending all appointments and taking medications as prescribed. A: No updates made at this time. Pt declines further needs. JASON Crowley documented in this encounter Plan of Treatment Upcoming Encounters Date Type Department Care Team (Late st Contact Info) Description 10/19/2024 1:20 PM EDT Office Visit [facility] Medicine Specialties [address], 2nd [place] [address] Clara Bartholomew PA [address] [place] [address] 10/27/2024 10:30 AM EDT Office Visit [facility] [address] [facility] [address] [place] [address] 10/29/2024 9:30 AM EDT Office Visit [facility] Medicine Specialties [address], [address] [place] [address] Nikkie Aguirre PA [address] [place] [address] 11/10/2024 11:00 AM EDT Office Visit [facility] Internal Medicine [address], 3rd [place] [address] Vandana Urbina MD [address] [place] [address] 11/16/2024 10:30 AM EDT Office Visit [facility] Urology [address], [address] [place] [address] Maria Elena Lizarraga PA [address] [place] [address] 11/19/2024 10:00 AM EDT Clinical Support [facility] Lab [address] [place] [address] 11/26/2024 9:50 AM EDT Office Visit [facility] Urology [address], [address] [place] [address] Nati Judge APRN, DNP [address] [place] [address] 12/08/2024 8:30 AM EDT Procedure Visit [facility] Orthopaedic Surgery & Sports Medicine [address] [facility], [address] [place] [address] Jonathan Armando MD [address] [facility] [address] [place] [address] 12/17/2024 3:00 PM EST Office Visit [facility] General Surgery [address], [address] [place] [address] Germain Botello MD [address] [place] [address] 01/11/2025 9:30 AM EST Clinical Support [facility] Lab [address] [place] [address] 01/18/2025 10:50 AM EST Office Visit [facility] Urology [address], [address] [place] [address] Nati Judge APRN, DNP [address] [place] [address] 01/28/2025 1:30 PM EST Office Visit [facility] [address] [place] [address] Gracy Aguilar MD [address] [facility] [address] [place] [address] 03/15/2025 1:15 PM EST Office Visit [facility] Advanced [facility] Care [address] [place] [address] Renee Graham S, OD [address] [place] [address] 06/01/2025 11:30 AM EDT Clinical Support [facility] [address] [place] [address] 06/08/2025 1:40 PM EDT Office Visit [facility] Nephrology, Bone & Mineral Metabolism [address] [facility], [address] [place] [address] Marco Brandt MD [address] [place] [address] documented as of this encounter [...] documented as of this encounter Care Teams Saw Superintendent Relationship Specialty Start Date End Date Vandana Urbina MD [address] [place] [address] PCP - General Internal Medicine 05/02/23 [place] [address] Drum Tender Angle Shearer 05/31/21 Gracy Aguilar MD [address] [place] [address] [address] [place] [address] Consulting Physician Infectious Diseases 03/26/23 Chuck Kaplan PA [address] [place] [address] [address] [place] [address] Physician Correctional Food Service Supervisor Infectious Diseases 03/26/23 Maria Elena Lizarraga PA [address] [facility] [address] [place] [address] Physician Correctional Food Service Supervisor Urology 03/09/24 documented as of this encounter
--- OUTSIDE RECORDS SUMMARY | 2024-10-16 10:31 | XMS_ITS | Encounter Summary ---
Author Organization [facility] Address [address] [place] [address] Care Team Providers Care Street Light Repairer Helper Name Role Phone Lashay Maynard Unavailable Unavailable Gracy Aguilar MD Unavailable [phone] Chuck Kaplan Unavailable [phone] Vandana Urbina MD Primary Care Provider [phone] Maria Elena Lizarraga Unavailable [phone] Reason for Visit * Reason Comments Med Refill Encounter Details Date Type Department Care Team (Late st Contact Info) Description 06/19/2023 Refill [facility] [address] [place] [address] Reyna Tiwari, [place] [address] [address] Pain of left hand Social History Tobacco Use Types Packs/Day Years Used Date Smoking Tobacco: Never Passive Smoke Exposure: Never Smokeless Tobacco: Never Alcohol Use Standard Drinks/Week Comments Not Currently 2 (1 standard drink = 0.6 oz pur e alcohol) quit in May 2022 Social Connection and Isolation Panel Answer Date Recorded In a typical week, how many times do you talk on the phone with family, friends, or neighbors? More than three times a week 05/02/2023 How often do you get togethe r with friends or relatives? More than three times a week 05/02/2023 How often do you attend [facility] or congregation services? Never 05/02/2023 Do you belong to any clubs o r organizations such as christian groups, unions, fraternal or athletic groups, or [...] Date Recorded Patient Health Questionnaire-2 Score 0 06/17/2023 [facility] - Occupational Stress [...] the money to buy more. Never true 05/02/19 24 Within the past 12 months, t he food you bought just didn't last and you didn't have money to get more. Never true 05/02/2023 PRAPARE - Transportation Answer Date Re corded In the past 12 months, has l ack of transportation kept you from medical appointments or from getting medications? No 04/12 In the past 12 months, has l ack of transportation kept you from meetings, work, or from getting things needed for daily living? No 05/02/2023 Housing Stability Vital Sign Answer Solomon e Recorded In the last 12 months, was t here a time when you were not able to pay the mortgage or rent on time? No 05/02/2023 In the last 12 months, how many places have you lived? 1 05/02/2023 In the last 12 months, was t here a time when you did not have a steady place to sleep or slept in a long-term (including now)? No 05/02/2023 Safety and Environment Answer Date Helder rded Do you worry that your child may have been physically abused? No 05/02/2023 Do you worry that your child may have been sexua lly abused? No 05/02/2023 Are there any guns kept in o r around your home or where your child spends time? No 05/02/2023 Guns Unloaded or Locked Away Not on [...] drink first t mina in the morning (EYE-ULTRASOUND TECH) to steady your nerves or to get rid of a hangover? 0 06/20/2022 CAGE Questionnaire Score 0 023 Utilities Answer Date Recorded In the past 12 months has th Bud[employer], gas, oil, or water company threatened to shut off services in your home? No 05/02/2023 PHQ-2A Answer Date Recorded Patient Health Questionnaire-2 [...] 06/28/2022 5:50 PM EDT Tabatha Sosa, RN * Are you blind or do [...] Description 10/19/2024 1:20 PM EDT Office Visit [facility] Medicine Specialties [address] [place] [address] Clara Bartholomew PA [address] [place] [address] 10/27/2024 10:30 AM EDT Office Visit [facility] [address] [place] [address] 10/29/2024 9:30 AM EDT Office Visit [facility] Medicine Specialties [address] [place] [address] Nikkie Aguirre PA [address] [place] [address] 11/10/2024 11:00 AM EDT Office Visit [facility] Internal Medicine [address] [place] [address] Vandana Urbina MD [address] [place] [address] 11/16/2024 10:30 AM EDT Office Visit [facility] Urology [address] [place] [address] Maria Elena Lizarraga PA [address] [place] [address] 11/19/2024 10:00 AM EDT Clinical Support [facility] Lab [address] [place] [address] 11/26/2024 9:50 AM EDT Office Visit [facility] Urology [address] [place] [address] Nati Judge, MAT ROLLER, VALERIO [address] [place] [address] 12/08/2024 8:30 AM EDT Procedure Visit [facility] Orthopaedic Surgery & Sports Medicine [address] [place] [address] Jonathan Armando MD [address] [place] [address] 12/17/2024 3:00 PM EST Office Visit [facility] General Surgery [address] [place] [address] Germain Botello MD [address] [place] [address] 01/11/2025 9:30 AM EST Clinical Support [facility] Lab [address] [place] [address] 01/18/2025 10:50 AM EST Office Visit [facility] Urology [address] [place] [address] Nati Judge P, MAT ROLLER, DNP [address] [place] [address] 01/28/2025 1:30 PM EST Office Visit [facility] [address] [place] [address] Gracy Aguilar MD [address] [place] [address] 03/15/2025 1:15 PM EST Office Visit [facility] [address] [place] [address] Renee Graham S, OD [address] [place] [address] 06/01/2025 11:30 AM EDT Clinical Support [facility] [address] [place] [address] 06/08/2025 1:40 PM EDT Office Visit [facility] Nephrology, Bone & Mineral Metabolism [address], [address] [place] [address] Marco Brandt MD [address] [place] [address] documented as of this encounter [...] as of this encounter Visit Diagnoses Diagnosis Pain of left hand documented in this encounter Additional Health Concerns Active Problems Noted Date Diagnosed Date Treatment Adherence 09/02/2024 Assessment Noted Time PHQ-9 Depression Total Score: 9 12/23/19 21 3:25 PM EST A fall risk assessment has been complete d for the patient 06/17/2023 8:30 AM EDT A Body Mass Index follow-up plan has been documented for the patient 06/17/2023 9:04 AM EDT documented as of this encounter Care Teams Street Light Repairer Helper Relationship Specialty Start Date End Date Vandana Urbina MD [address] [place] [address] PCP - General Internal Medicine 05/02/23 [place] [address] Reporting Consultant Stone Banker 05/31/21 Gracy Aguilar MD [address] [facility] [address] [place] [address] Consulting Physician Infectious Diseases 03/26/23 Chuck Kaplan PA [address] [facility] [address] [place] [address] Physician Plastic Sheeting Cutter Infectious Diseases 03/26/23 Maria Elena Lizarraga PA [address] [place] [address] Physician Plastic Sheeting Cutter Urology 03/09/24 documented as of this encounter
--- OUTSIDE RECORDS SUMMARY | 2024-10-16 10:31 | XMS_ITS | Clinical Summary ---
Author Organization [facility] Address [address] [place] [address] Care Team Providers Care Proposal Specialist Name Role Phone Lashay Maynard Unavailable Unavailable Gracy Aguilar MD Unavailable [phone] Chuck Kaplan Unavailable [phone] Vandana Urbina MD Primary Care Provider [phone] Maria Elena Lizarraga Unavailable [phone] Allergies Active Allergy Reactions Criticality Noted Date Comments Sulfamethoxazole-Trimethoprim Nausea,Rash Low 07/19 Medications Calcium Citrate-Vitamin D (CALCIUM + D PO) Take 1 Dose by mouth 1 (one) time each day. Active fluticasone (Flonase) 50 MCG/ACT nasal spray Administer 1 spray into each nostril daily as needed for allergies. 01/18/20 23 Active diclofenac (Voltaren) 1 % topical gelIndications:Left shoulder pain, unspecified chronicity APPLY TO SKIN TWO TIMES A DAY NEEDED FOR PAIN 50 g 1 05/02/19 24 Active propranolol (Inderal) 20 MG tabletIndications:Se condary esophageal varices without bleeding (CMS/HCC) Take 0.5 tablets (10 mg) by mouth 2 (two) times a day. 90 tablet 3 11/06/19 24 025 Active allopurinol (Zyloprim) 100 MG tabletIndications:Go ut, unspecified cause, unspecified chronicity, unspecified site Take 0.5 tablets (50 mg) by mouth 1 (one) time each day. 45 tablet 1 12/20/19 Active sildenafil (Viagra) 100 MG tablet Take 1 tablet (100 mg) by mouth if needed for erectile dysfunction. 12 tablet 03/11/19 25 026 Active amLODIPine-valsartan (Exforge) 10-320 MG tabletIndications:Es sential (primary) hypertension Take 1 tablet by mouth daily. 90 tablet 05/06/19 25 Active amLODIPine-valsartan (Exforge) 10-320 MG tabletIndications:Es sential (primary) hypertension Take 1 tablet by mouth daily. 90 tablet 05/01/19 Active atorvastatin (Lipitor) 10 MG tablet Take 1 tablet (10 mg) by mouth daily. 90 tablet 05/06/19 Active SURE COMFORT INS SYR 1CC/29G 29G X 1/2 1 ML misc use as directed 05/05/19 Active Egrifta SV 2 MG reconstituted solution INJECT 1.4 MG (0.35 ML) UNDER THE SKIN DAILY (DISCARD UNUSED PORTION) 30 each 05/13/19 Active testosterone cypionate (Depo-Testosterone) 200 MG/ML injection Inject 1 mL into the muscle every 14 days. 2 mL 07/10/19 025 Active Additional Information Patient not taking.Reported on 09/07/2024 Hypodermic [place]-Disposable misc Use 18 g needle to draw up testosterone injection as directed. 6 each 07/10/19 Active Syringe/Needle, Disp, (BD Eclipse Syringe/Needle) 23G X 1 3 ML misc Use to draw up and give testosterone injection in the muscle as directed. 6 each 07/10/19 Active alprostadil-phentola mine-papaverine (Trimix) 20-1-30 mcg-mg-mg/mL intracavernosal injection Inject 0.10 mL (10 units) to 0.50 mL (50 units) as directed. 1 mL 07/16/19 25 Active pancrelipase, Kej-Akbz-Afba, (Creon) 30916-056216 units capsule delayed-release particles capsule TAKE 1 CAPSULE BY MOUTH THREE TIMES A DAY AND 1 CAPSULE WITH SNACKS 300 capsule 1 07/22/19 25 Active loperamide (Imodium) 2 MG capsuleIndications:C hronic diarrhea TAKE 2 CAPSULES BY MOUTH DAILY NEEDED 60 capsule 2 08/14/19 25 Active omeprazole (PriLOSEC) [address] capsule Take 1 capsule by mouth daily. DO NOT CRUSH CHEW OR SPLIT 30 capsule 2 08/14/19 25 Active abacavir-lamiVUDine (Epzicom) 600-300 MG tabletIndications:Hu man immunodeficiency virus ([facility]) Take 1 tablet by mouth daily. 30 tablet 5 09/09/19 25 026 Active doravirine (Pifeltro) 100 MG tablet tabletIndications:Hu man immunodeficiency virus ([facility]) Take 1 tablet by mouth daily. 30 tablet 5 09/09/19 25 Active valACYclovir (Valtrex) 1 g tabletIndications:ul ceration of vulva Take one bid x 10 days for initial HSV 20 tablet 09/09/19 25 Active mirabegron ER (Myrbetriq) 25 MG tablet Take 1 tablet by mouth daily. 30 tablet 2 09/09/19 25 025 Active hydrOXYzine pamoate (Vistaril) 25 MG capsuleIndications:A nxiety TAKE 1-2 CAPSULES BY MOUTH NIGHTLY NEEDED TO REDUCE ANXIETY 60 capsule 3 09/09/19 25 Active valACYclovir (Valtrex) 1 g tabletIndications:Sultana perficial ulcerative lesion ([facility]) 1 po every day for 5 to 10 days. Start taking when has symptoms such as burning, itching, or pain in the area. 30 tablet 4 09/10/19 25 Active Hospital, Clinic, or Other Facility Administered Medication Ordered Dose Route Frequency Start Date End Date Status hyaluronan (Orthovisc) injection 30 mgIndications:Primar y osteoarthritis of both knees 30 mg IX Once PRN Procedure 09/01/2024 5 Discontinued hyaluronan (Orthovisc) injection 30 mgIndications:Primar y osteoarthritis of both knees 30 mg IX Once PRN Procedure 09/01/2024 5 Discontinued lidocaine (Xylocaine) 1 % injection 50 mgIndications:Primar y osteoarthritis of both knees 50 mg IX Once PRN Procedure 09/01/2024 5 Discontinued lidocaine (Xylocaine) 1 % injection 50 mgIndications:Primar y osteoarthritis of both knees 50 mg IX Once PRN Procedure 09/01/2024 5 Discontinued Active Problems Problem Noted Date Diagnosed Date HSV (herpes simplex virus) anogenital infection 09/09/2024 Assessment & Plan (09/09/2024 5:04 PM EDT): Swab was obtained on physical examination of patient for ulcerated lesion. Later resulted as HSV-1 + on PCR. Patient was sent with Valacyclovir 1000 mg BID for 10 days. He was later sent refills in case of recurrence. He has been made aware of this result. Pain in metatarsus of right foot 12/25/2023 Assessment & Plan (12/25/2023 11:18 PM EST): Patient has metatarsal pain. We will refer to podiatry. Gout 12/20/2023 Subclinical hypothyroidism 05/02/2023 Splenomegaly 05/02/2023 At high risk for falls 04/24/2023 Acute hearing loss, right 01/23/2023 Assessment & Plan (01/23/2023 4:29 PM EST): - exam wnl today without any gross CN deficits aside from significant hearing deficit on right side - will refer pt to ENT for further evaluation of acute hearing loss of right ear - discussed RTC PRN if new concerns arise Anxiety 10/19/2022 Assessment & Plan (10/19/2022 12:11 PM EDT): Anxiety is stable. Patient takes 1-2 hydroxyzine every night to calm racing thoughts and help with sleep. RF sent. 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 Will check growth hormone level to monitor for se of this drugs. He is happy with the medication although it injections are sometimes painful. There is a new formulation of this medication with recent FDA approval, Egrifta WR, dosed once weekly with smaller injection volume. Will discuss this further at next visit. Assessment & Plan (05/13/2024 9:49 PM EDT): Patient remains on subcutanous egrifta. Will check growth hormone level to monitor for se of this drugs. His abdomen remains soft and flat. Assessment & Plan (12/25/2023 11:22 PM EST): Patient is is on subcutanous wit egripta. Will check gorwth hormone level to monitor for se of this drugs. His abdomen was soft Assessment & Plan (05/14/2022 10:27 PM EDT): Patient is is on subcutanous wit egripta. Will check gorwth hormone level to monitor for se of this drugs. His abdomen was soff Primary osteoarthritis of both knees 10/03/2021 Assessment & Plan (08/23/2022 8:47 AM EDT): Follows with ortho Gets injections every sick months Recognized he will eventually need knee replacements Weight gain 04/21/2021 Assessment & Plan (05/13/2024 9:44 PM EDT): Patient has tried to lose weight through diet, exercise but unable to do so. Previously had gained weight on an INSTI. Later switched to Epzicom and Doravirine but without significant weight reduction. Have placed referral to [facility] weight loss clinic for consultation. Assessment & Plan (06/04/2021 9:41 PM EDT): Patient feels very distressed with weight gain. He is on integrase inhibitor - we have called dr. Alexis kothari, one of our pharmacist and we both agree that it would be worth to try Epzicom and doravirine Assessment & Plan (04/21/2021 2:54 PM EST): Reports 50 lb weight gain over the past 2 years. Discussed that this is often a common side effect of antiretroviral medication and there are possible options to help combat this specific type of weight gain.Advised him to talk more in depth with at his next appointment. Health care maintenance 04/21/2021 Assessment & Plan (05/13/2024 9:30 PM EDT): - Immunizations: HAV/HBV immune - RSV is due, discussed with patient, did not receive today - Shingrix also due, did not discuss today - Follows with ophthalmology - Follows with dentistry - Follows with PCP Dr Urbina Assessment & Plan (11/21/2022 11:53 AM EDT): Healthcare Maintenance Immunizations Immunization History Administered Date(s) Administered DTaP, Unspecified 04/12/2010 Hep B, Unspecified 07/18/2011 Hep B, adult 08/16/2011, 07/21/2018, 12/22/2018, 01/18/2020 Influenza, Unspecified 11/01/2009, 11/28/2010 Influenza, high-dose, quadrivalent 11/16/2022 Influenza, injectable, quadrivalent, preservative free 11/09/2015, 11/20/2017, 12/03/2019, 12/12/2020, 11/30/2021 Influenza, seasonal, injectable 11/01/2009, 10/26/2013, 11/02/2014, 11/20/2016, 12/23/2018, 12/21/2020, 11/30/2021 Influenza, seasonal, injectable, preservative free 11/12/2011, 10/26/2013 Influenza, seasonal, intradermal, preservative free 12/10/2012 Meningococcal MCV4P 07/13/2016, 09/18/2016 Pfizer Covid-19 Vaccine 12y+, Félix Protein, PF, Harvinder-Sucrose 11/16/2022 Pfizer-BioNTech COVID-19 Bivalent Booster (Elliott Cap) 12+ years (harvinder-sucrose) 11/15/2021 Pfizer-BioNTech COVID-19 Vaccine (Purple Cap) 12+ 04/13/2020, 05/11/2020, 12/07/2020 Pneumococcal Conjugate PCV 13 06/10/2012, 01/18/2020 Pneumococcal Polysaccharide PPV23 01/24/2010, 11/20/2016 Pneumococcal, Unspecified 01/24/2010 Tdap 08/16/2011, 01/20/2019 Flu and covid vaccine in pharmacy today Cancer Screenings ? Anal pap: follows with CRS annually ? Colon cancer: 04/2020 normal, repeat 2025 ? Lung cancer: not indicated Other Screenings ? DEXA: due now, ordered today ? AAA: due at 65 or not indicated Labs ? ASCVD: 10.5%, on atorvastatin A1c: Lab Results Component Value Date HGBA1C 5.7 (H) 04/26/2021 Referrals ? Dentist: scheduled 08/2022 ? Ophthalmology: scheduled 09/2022 Assessment & Plan (10/19/2022 12:11 PM EDT): Discussed annual covid and flu vaccination will patient will receive as soon as new covid booster is available. Assessment & Plan (08/23/2022 9:35 AM EDT): Healthcare Maintenance Immunizations Immunization History Administered Date(s) Administered DTaP, Unspecified 04/12/2010 Hep B, Unspecified 07/18/2011 Hep B, adult 08/16/2011, 07/21/2018, 12/22/2018, 01/18/2020 Influenza, Unspecified 11/01/2009, 11/28/2010 Influenza, injectable, quadrivalent, preservative free 11/09/2015, 11/20/2017, 12/03/2019, 12/12/2020, 11/30/2021 Influenza, seasonal, injectable 11/01/2009, 10/26/2013, 11/02/2014, 11/20/2016, 12/23/2018, 12/21/2020, 11/30/2021 Influenza, seasonal, injectable, preservative free 11/12/2011, 10/26/2013 Influenza, seasonal, intradermal, preservative free 12/10/2012 Meningococcal MCV4P 07/13/2016, 09/18/2016 Pfizer-BioNTech COVID-19 Bivalent Booster (Elliott Cap) 12+ years (harvinder-sucrose) 11/15/2021 Pfizer-BioNTech COVID-19 Vaccine (Purple Cap) 12+ 04/13/2020, 05/11/2020, 12/07/2020 Pneumococcal Conjugate PCV 13 06/10/2012, 01/18/2020 Pneumococcal Polysaccharide PPV23 01/24/2010, 11/20/2016 Pneumococcal, Unspecified 01/24/2010 Tdap 08/16/2011, 01/20/2019 Cancer Screenings ? Anal pap: follows with CRS annually ? Colon cancer: 04/2020 normal, repeat 2025 ? Lung cancer: not indicated Other Screenings ? DEXA: due now, ordered today ? AAA: due at 65 or not indicated Labs ? ASCVD: 10.5%, discuss statin next visit A1c: Lab Results Component Value Date HGBA1C 5.7 (H) 04/26/2021 ? Referrals ? Dentist: scheduled 08/2022 ? Ophthalmology: scheduled 09/2022 Assessment & Plan (04/21/2021 2:56 PM EST): Colonoscopy: 2020 Pneumovax 11/27 and Prevnar 01/30. TdaP: 01/29 Shingrix: Will discuss with Dr. Aguilar next month COVID 04/13/20, 05/11/20, and booster Rec'd flu shots yearly Chronic diarrhea 01/12/2021 Assessment & Plan (01/12/2021 12:26 PM EST): - Upcoming GI appointment 02/22/21 AIDS 10/25/2020 Assessment & Plan (09/11/2024 2:47 PM EDT): Patient reports 100% adherence to HIV regimen with good immunologic and virologic response. Consider Cabenuva in the future as would avoid increased CV risk from abacavir-lamivudine and as he has no documented resistance to INSTIs. Will continue current HIV regimen. Refills sent. Routine HIV labs for monitoring of disease and side effects of drugs, including STI screening labs today (rectal GC/CT in setting of gluteal lesion). Patient is sexually abstinent. Recommended RSV vaccine to patient, he declined today but may consider in the future. Patient follows with Dr. Vandana Urbina with med-peds for primary care needs. Assessment & Plan (05/13/2024 9:51 PM EDT): He has good adherence and tolerance of epzicom and pifeltro. Patient is virologically and immunologically responsive. Will check labs to monitor disease and se of drugs. STI screening performed today. Reviewed most recent labs. Elevated creatinine in setting of stage 3a CKD. HIV meds may contribute to this, but labs largely stable for last several years. Assessment & Plan (12/25/2023 11:05 PM EST): He has good adherence and tolerance of epzicom and pifeltro. Will check labs to monitor disease and se of drugs. I have reviewed labs and immunizations with him . He has received his flu and covid. He needs hpv and shingrex but declines vaccination today. We will work on these at next visit. in the fall - I have encouraged rsv at the pharmacy. He will return in 4 to 6 mo. Assessment & Plan (08/16/2023 11:40 PM EDT): Reports good adherence and tolerance of epzicom and pifeltro. Will check labs to monitor disease and se of drugs. I have reviewed labs and immunizations with him . We should encouraged hpv vaccinations and will do flu and covid in the fall - I have encouraged rsv at the pharmacy. He will return in 4 to 6 mo. Assessment & Plan (04/05/2023 8:56 AM EST): Reports good adherence and tolerance of epzicom and pifeltro. Will check labs to monitor disease and se of drugs. I have reviewed labs and immunizations with him . He will get pneumonia 20 today and I have encouraged rsv at the pharmacy. He will return in 4 to 6 mo. Assessment & Plan (11/21/2022 11:51 AM EDT): Reports good adherence and tolerance of epzicom and pifeltro, may be switching to updated regimen in the future. Pt has demonstrated good immunologic and virologic response ART, will get labs today Follows with Dr. Aguilar Assessment & Plan (10/19/2022 12:14 PM EDT): Continue Epzicom + Pifeltro. RF sent. Most recent labs reviewed with patient and all questions were answered. Labs ordered for monitoring of HIV disease and SE while on ART. Most recent VL was undetectable at <40 showing virologic suppression with a CD4 count of 372/24.1%. No OI prophylaxis indicated. Assessment & Plan (08/23/2022 8:51 AM EDT): Reports good adherence and tolerance of epzicom and pifeltro, may be switching to updated regimen in the future . Pt has demonstrated good immunologic and virologic response ART. Follows with Dr. Aguilar Assessment & Plan (08/10/2022 11:55 PM EDT): Patient is on an outdated regimmen but also has resistance. He would like to defer that talk until his next visit. He is a bit overwhelmed with his recent bone /wrist. Will discuss at next visit. We will check some l Assessment & Plan (05/14/2022 10:23 PM EDT): Patient is stable and taking his hiv meds. I have reviewed his labs with him and renewed his vaccation. HI have sent in a refill. Patient will get labs today to montior disease and se of drugs. Assessment & Plan (12/20/2021 12:22 AM EST): Patient is taking his meds: epzicom and pifeltro and we have renewed his meds. We reviewed previous labs and he will get labs today to monitor disease and se of drugs. Assessment & Plan (06/10/2021 10:28 PM EDT): Doing well. He obtained labs several days ago to monitor disease and se of drugs. We have reviewed his labs. Assessment & Plan (06/04/2021 9:52 PM EDT): Patient is taking his hiv meds- but is very unhappy with his current regimen as he thinks the meds are contributing to the weight gain. We will switch to epzicom doravirine. We will check his labs today to monitor his disease and se of drugs. Assessment & Plan (04/21/2021 2:48 PM EST): Continue antiretroviral medication and follow-up with infectious disease. Assessment & Plan (01/12/2021 12:26 PM EST): - Well controlled on Dovato. 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 He does nt have a follow up and we will get our waste water operator to reschedule that. He could take the hpv vacicnation and we will discuss with him.we will get labs to monitor disease and se of drugs. F/u in 4 to 6 months Assessment & Plan (12/20/2021 12:23 AM EST): He continues to follow with colorectal. Assessment & Plan (06/04/2021 9:48 PM EDT): Patient is following with our colorectal team. He will see him next week. Assessment & Plan (04/21/2021 2:49 PM EST): Recent follow-up with Dr. Botello showed low grade squamous intraepithelial lesion but could not exclude high grade. Will continue with 4-6 mo anoscopy. 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 Wants to meet with urology to discuss other alternatives. Enlarged prostate with lower urinary tract sympt oms (LUTS) 02/16/2014 Insomnia 06/16/2013 Vitamin D deficiency 02/17/2013 Assessment & Plan (11/20/2022 2:52 PM EDT): Endorses adherence to vit d supplement Most recent DEXA shown osteopenia, will continue supplement now Check Vit D with labs today Testicular hypofunction 12/10/2012 Mixed hyperlipidemia 12/10/2012 Esophageal varices without bleeding 10/14/2012 Assessment & Plan (08/23/2022 8:44 AM EDT): Follows with GI Last egd 2018 with G1 varices Liver cirrhosis 06/27/2012 Assessment & Plan (04/05/2023 8:53 AM EST): Confirmed that patient has follow up with Gi- shared the appt time with the patient and encouraged him to keep the appt. Assessment & Plan (08/23/2022 9:26 AM EDT): Follows with GI Stable now Assessment & Plan (12/20/2021 12:20 AM EST): Patient continues to work with GI for this. He is currently stable. Assessment & Plan (04/21/2021 2:51 PM EST): Continue following with hepatology. RUQ US scheduled for 06/2021. Discussed the importance of being compliant with his nadolol and avoiding alcohol. Resolved Problems Problem Noted Date Diagnosed Date Resolved Date Left shoulder pain 10/19/2022 Assessment & Plan (12/27/2022 11:20 AM EST): - exam with limited ROM with abduction of left upper extremity. Had duplex US 12/18 reported no clot. XR left shoulder 10/30 with no bony abnormality noted. - discussed likely rotator cuff muscle related etiology of shoulder pain. - will refer to PT; given shoulder exercise print out to start at home; will refer to sports medicine and if shoulder pain improves with PT, discussed pt can cancel ortho appt - will give topical diclofenac and pt will continue mobic - establishing with new PCP in 2 months Assessment & Plan (10/19/2022 12:20 PM EDT): Patient reports new onset left shoulder pain post PICC removal 07/17/2022. Will order Xray to evaluate for possible cause of pain. If no abanormalities are found, would recommend PT for evaluation and treatment. Tenosynovitis 06/20/2022 04/05/2023 Assessment & Plan (10/19/2022 12:18 PM EDT): Patient is no longer on antibiotic therapy. He has some hypertrophic scarring at incision site and was educated to apply OTC silicone scar cream to reduce appearance. Will check CRP today to evaluate for continued response to antibiotic therapy since PICC removal. Assessment & Plan (07/06/2022 3:57 PM EDT): - continuing on IV cefazolin 6 gm continuous Q24H until 07/20/22 - continuing daily infusion change with help of clinical trial assistant, Juana. Continuing PICC change every week at local hospital - OPAT nurse alerted to assist pt with abx infusion ball change today - continued swelling of left hand, not worsened per pt. Will monitor. - reviewed labs and repeating BMP since kidney function was slightly decreased (Cr 1.41 and GFR 51) from 07/02 draw - follow up with Dr. Aguilar 07/17/22 Bicytopenia 06/20/2022 05/02/2023 Pyogenic arthritis of wrist 06/20/2022 04/05/2023 Assessment & Plan (08/10/2022 11:52 PM EDT): Patient is healing well. He has been off abx now and pic was pulled last visit. He had mssa. He did experience drop in wbc on iv cefazolin. We will check cb/diff today to monitor. Encouraged patient to call us should he devleop redness, pain etc. He is in physical therapy now. Will see In 2 months. 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 He is doing well. He had a bit of a cough but it is gone. He is tolerating the covid medication but has a bit of nausea - we discussed trying food with the molnuprinivir .We discussed that he should hydrate well and rest as needed. He checked his pulse ox - normal yesterday. We will have our staff call him and check and make sure he is still doing well. He can go out into public with a mask on day 7 to 10 days. We encouraged him to call us if he needs us and made sure he has our numbers. Upper respiratory disease 06/04/2021 Assessment & Plan (06/04/2021 9:56 PM EDT): Patient has a cough and upper respiratory sx. We will check for covid , flu and rsv. We will hold off covid booster until we know the results of the covid test. 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 Chronic anemia 03/04/2020 09/27/2020 Increased abdominal girth 03/04/2020 Assessment & Plan (04/05/2023 8:49 AM EST): I have offered for patient to meet with maya and will send her a message to follow up. Assessment & Plan (12/20/2021 12:26 AM EST): Patient complains of thin arms and legs and increased abdominal girth and hard belly . I am not sure if he has lipodystrophy or if he would benefit from egrifta. Pancytopenia 03/04/2020 08/16/2023 Assessment & Plan (08/23/2022 9:36 AM EDT): splenomegaly seen on CT A/P Bowel incontinence 10/07/2019 Assessment & Plan (04/21/2021 2:55 PM EST): Resolved. Continue taking creon and lomotil daily. 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 He is rather anxious about the work up and also about the cost. We will have him meet with our social services counselor to discuss cost. I assured him that sometimes getting further testing is all part of the work up and to continue to work with ent. Rhinitis 03/21/2016 06/04/2021 Routine screening for STI (s exually transmitted infection) 03/07/2015 09/27/2020 Arthritis of right knee 12/20/201408/11 Abnormal weight gain 06/22/2014 021 Prostate cancer screening 02/16/2014 Human immunodeficiency virus (HIV) disease 10/08/2012 01/12/2021 Encounters Date Type Department Care Team Description 10/06/2024 Orders Only [facility] [address], [address] [place] [phone] Ravin Gloria MD Primary osteoarthritis of both knees (Primary Dx) 10/05/2024 Telephone [facility] [address], [address] [place] [address] Jonathan Armando MD HCN - Patient Message 10/05/2024 Patient Outreach [address] [address] Yaritza Chandra Case Management 10/05/2024 Travel 09/09/2024 Results Follow-Up [address] [address] Gracy Aguilar MD 09/08/2024 11:00 AM EDT Office Visit [address] [address] Gracy Aguilar MD Superficial ulcerative lesion (CMS/HCC) (Primary Dx); Human immunodeficiency virus (CMS/HCC); HSV (herpes simplex virus) anogenital infection; Lipodystrophy; AIDS (CMS/HCC) 09/08/[address] [address] Gracy Aguilar MD Anxiety 09/08/2024 Patient Outreach [address] [address] Lashay Maynard Case Management 09/08/2024 Travel 09/07/2024 10:50 AM EDT Office Visit [facility] [address], [address] [place] [address] Maria Elena Lizarraga PA Nocturia (Primary Dx); Lower urinary tract symptoms (LUTS) 09/07/2024 Travel 09/02/[address] [address] Lashay Maynard Case Management 09/01/2024 9:00 AM EDT Procedure Visit [facility], [address] [place] [phone] Jonathan Armando MD Primary osteoarthritis of both knees (Primary Dx) 09/01/2024 Orders Only External Location [address] [place] [address] Provider, External 09/01/2024 Travel 08/24/2024 1:00 PM EDT Clinical Support [facility] [address], 2nd [place] [address] An Matthew, SCREWHEAD POLISHER Low testosterone in male (Primary Dx) 08/24/2024 Travel 08/19/2024 Telephone [facility] [address] [place] [address] Nati Judge, RUBY, DNP 08/19/2024 Results Follow-Up [facility] [address], [address] [place] [address] Nati Judge, UNIT ASSEMBLER, DNP 08/17/2024 Travel 08/13/2024 Refill [facility] [address] [place] [address] Gracy Aguilar MD 08/13/2024 Refill [facility] [address], [address]nd [place] [address] Clara Bartholomew PA Chronic diarrhea 08/12/2024 Telephone [facility] [address] [place] [address] Gail Kitchen, PharmD Medication Therapy Management 08/10/2024 1:00 PM EDT Clinical Support [facility] [address] [place] [address] Eduardo Yoon Low testosterone (Primary Dx) 08/10/2024 Travel 08/10/2024 Telephone [facility] [address] [place] [address] Gail Kitchen, PharmD Medication Therapy Management 08/06/2024 Telephone [facility] [address] [facility] [address], [address] [place] [address] Jonathan Armando MD HCN - Patient Message 08/06/2024 Results Follow-Up [facility] [address], [address] [place] [address] Nati Judge, RUBY, DNP 07/31/2024 9:45 AM EDT Office Visit [facility] [address] [address] Zina Rincon, DMD Pain, dental (Primary Dx) 07/31/2024 Travel 07/24/2024 12:00 PM EDT Clinical Support [facility] [address], [address] [place] [address] Tanesha Mensah LPN Low testosterone (Primary Dx) 07/24/2024 Travel 07/23/2024 Results Follow-Up [facility] [address], [address] [place] [address] Nati Judge, RUBY, DNP 07/21/2024 Refill [facility] [address], [address] [place] [address] Reyna Rincon, RUBY 07/16/2024 10:00 AM EDT Office Visit [facility] [address] [id number] Liz Pepe, DMD Teeth missing (Primary Dx) 07/16/2024 Travel 07/16/2024 Telephone [facility] [address] [place] [address] None, None from Last 3 Months Immunizations Immunization Administration Dates Next Due DTaP, Unspecified 04/12/2010 HPV 9-Valent 01/08/2024(Deferred: Patient Ref used) Hep B, Unspecified 07/18/2011 Hep B, adult 01/18/2020, 9,07/21/2018,08/15 Influenza, High-dose, Split Virus, Trivalent, Injectable, preservative free 11/05/2023 Influenza, Unspecified 11/28/2010,11/01/2009 Influenza, high-dose, quadrivalent 11/16/2022 Influenza, injectable, quadr ivalent, preservative free 11/30/2021,12/12/2020,12/03/2019,11/20,11/09/2015 Influenza, seasonal, injectable 12/01/19,12/21/2020,12/23/2018,11/20,11/02/2014,10/26/2013,11/01/2009 Influenza, seasonal, injecta ble, preservative free 10/26/2013,11/12/2011 Influenza, seasonal, intrade rmal, preservative free 12/10/2012 Meningococcal MCV4P 09/18/2016,07/13/2016 Pfizer Covid-19 Vaccine 12y+ , Félix Protein, PF, Harvinder-Sucrose 11/14/2023,11/16/2022 Pfizer-BioNTech COVID-19 Biv alent (Elliott Cap) 12+ years (harvinder-sucrose) 11/15/2021 Pfizer-BioNTech COVID-19 Vac cine (Purple Cap) 12+ 12/07/2020,05/11/2020,04/13/2020 Pneumococcal 20-blanquita Conj Vaccine 03/26/2023 Pneumococcal Conjugate PCV 13 01/18/2020, 013 Pneumococcal Polysaccharide PPV23 11/20/2016, Pneumococcal, Unspecified 01/24/2010 Tdap 01/20/2019,08/16/2011 Family History Medical History Relation Name Comments Alcohol abuse Brother Older brother Conversions - Other Brother Older brother Fuchs' endothelial dystrophy Hypertension Brother Older brother Arthritis Father lev barahona Conversions - Other Father lev barahona Coronary Arteriosclerosis Hypertension Father lev rice Cancer Mother alan barahona Colon cancer Mother alan barahona Stroke Mother alan barahona Conversions - Other Sister Fuchs' e ndothelial dystrophy Relation Name Status Comments Brother Older brother Father lev barahona Mother alan barahona Sister Social History Tobacco Use Types Packs/Day Years [...] How often do you attend chur or pentecostal services? Never 05/02/2023 Do you belong to any clubs o r organizations such as shinto groups, unions, fraternal or athletic groups, or [...] Recorded Patient Health Questionnaire-2 Score 0 09/08/2024 [facility] Occupational Stress Questionnaire Answer Date Recorded [...] any time in the [facility], were you homeless or living in [...] drink first t mina in the morning (EYE-ATTORNEY GENERAL) to steady your nerves or to get rid of a hangover? 0 06/20/2022 CAGE Questionnaire Score 0 023 Utilities Answer Date Recorded In the past 12 months has th e [employer], gas, oil, or water company threatened to shut off services in your home? No 05/05/2024 PHQ-2A Answer Date Recorded Patient Health Questionnaire-2 Score 0 12/27/2022 Sex and Gender Information Value Date Recorded Sex Assigned at Not on file Legal Sex Male 8:00 PM EDT Gender Identity Not on file Sexual Orientation Not on file Last Filed Vital Signs Vital Sign Reading Time Taken Comments Blood Pressure 137/84 09/08/2024 10:55 AM EDT Pulse 58 09/08/2024 10:55 AM EDT Temperature 36.8 C (98.3 F) 09/08/2024 10:55 AM EDT Respiratory Rate 18 09/07/2024 10:38 AM EDT Oxygen Saturation 99% 09/08/2024 10:55 AM EDT Inhaled Oxygen Concentration - - Weight 80 kg (176 lb 5.9 oz) 09/08/2024 10:55 AM EDT Height 172.7 cm (5' 8 ) 09/08/2024 10:55 AM EDT Body Mass Index 26.82 09/08/2024 10:55 AM EDT Plan of Treatment Upcoming Encounters Date Type Department Care Team (Late st Contact Info) Description 10/19/2024 1:20 PM EDT Office Visit [facility] [address] [place] [address] Clara Bartholomew PA [address] [place] [address] 10/27/2024 10:30 AM EDT Office Visit [facility] [address] [place] [address] 10/29/2024 9:30 AM EDT Office Visit [facility] [address], [address] [place] [address] Nikkie Aguirre PA [address] [place] [address] 11/10/2024 11:00 AM EDT Office Visit [facility] Internal Medicine [address], [address]rd [place] [address] Vandana Urbina MD [address] [place] [address] 11/16/2024 10:30 AM EDT Office Visit [facility] [address], [address] [place] [address] Maria Elena Lizarraga PA [address] [place] [address] 11/19/2024 10:00 AM EDT Clinical Support [facility] [address], [address] [place] [address] 11/26/2024 9:50 AM EDT Office Visit [facility] [address], [address] [place] [address] Nati Judge APRN, DNP [address] [place] [address] 12/08/2024 8:30 AM EDT Procedure Visit [facility] [address] [facility] [address], [address] [place] [address] Jonathan Armando MD [address] [facility] [address] [facility] [address] [place] [address] 12/17/2024 3:00 PM EST Office Visit [facility] General Surgery [address], [address] [place] [address] Germain Botello MD [address] [place] [address] 01/11/2025 9:30 AM EST Clinical Support [facility] [address] [place] [address] 01/18/2025 10:50 AM EST Office Visit [facility] [address], [address] [place] [address] Nati Judge APRN, DNP [address] [place] [address] 01/28/2025 1:30 PM EST Office Visit [facility] [address] [facility] [place] [address] Gracy Aguilar MD [address] [place] [address] 03/15/2025 1:15 PM EST Office Visit [facility] [address] [place] [address] Renee Graham S, OD [address] [place] [address] 06/01/2025 11:30 AM EDT Clinical Support [facility] [address], [address] [place] [address] 06/08/2025 1:40 PM EDT Office Visit [facility]ph[facility], Bone & Mineral Metabolism [address], [address] [place] [address] Marco Brandt MD [address] [place] [address] Health Maintenance Due Date Last Done Comments [facility]-Medicare Annual Wellness (AWV) 1955 [facility]-Hepatitis A Vaccines (1 of 2 - Risk 2-dose series) 02/25/1975 [facility]-Zoster Vaccines (1 of 2) 02/25/1975 CT Colonography 02/25/2001 FIT-DNA 02/25/2001 FIT 02/25/2001 FOBT 02/25/2001 Sigmoidoscopy 02/25/2001 [facility]-RSV Vaccine: 60+ Years or (1 - Risk 60-74 years 1-dose series) 2016 [id number] Vaccine (7 - Pfizer risk 2023- season) 2024 11/14/2023, 11/16/2022, 11/15/2021, Additional history exists [facility]-Influenza Vaccine (#1) 10/12/202411/04, 11/16/2022, 11/30/2021, Additional history exists [facility]- SDOH Screenings 11/05/2024 [facility]-Adult SDOH Screenings 11/05/2024 05/05/2024 [facility]-Infant/Child/Adol SDOH Screenings 11/05/2024 05/05/2024 [facility]-Bone Density Scan 11/13/2024 11/14/2023, 023 Dental Oral Exam 01/16/2025 07/16/2024, , 03/06/2021, Additional history exists Dental Prophylaxis 01/16/2025 07/16/2024, 0 08/30/2022, 03/06/2021, Additional history exists Colonoscopy 04/18/2025 04/18/2020, 04/19/2015 [facility]-Colorectal Cancer Screening 04/18/2025 Dental X-Ray: Bitewings 08/01/2025 08/01/19, 07/16/2024, 12/03/2023, Additional history exists [facility]-Depression Screening 09/08/2025 09/08/2024, 08/12 Dental X-Ray: Full Mouth 07/18/2027 07/16/2024 [facility]-DTaP,Tdap,and Td Vaccines (4 - Td or Tdap) 01/20/2029 01/20/2019, 08/16/2011, 04/12/2010 [facility]-Hepatitis C Screening Completed 2020, 05/25/2019, 05/25/2019 [facility]-Pneumococcal Vaccine: 50+ Years Completed 03/26/2023, 01/18/2020, 11/20/2016, Additional history exists [facility]-Diabetes: Hemoglobin A1C Discontinued 05/05/2024, 05/02/2023, 04/26/2021, Additional history exists [facility]-Obesity Intervention Completed 025, 09/07/2024, 09/01/2024, Additional history exists HPV Vaccines Aged Out No longer eligi ble based on patient's age to complete this topic [facility]-HIB Vaccines Aged Out No longer e ligible based on patient's age to complete this topic [facility]-IPV Vaccines Aged Out No longer e ligible based on patient's age to complete this topic [facility]-Rotavirus Vaccines Aged Out No lo nger eligible based on patient's age to complete this topic Goals Goal Patient Goal Type Associated Problems [...] year. He reports having no knee pain. Procedures Procedure Name Priority Date/Time Associated Diagnosis Comments HUMAN IMMUNODEFICIENCY VIRUS (HIV-1) QUANTITATIVE PCR Routine 09/08/2024 12:13 PM EDT Human immunodeficiency virus (CMS/HCC) COMPREHENSIVE METABOLIC PANEL, PLASMA Routine 09/08/2024 12:13 PM EDT Human immunodeficiency virus ([facility]/HCC) CD4 PERCENT AND ABSOLUTE (SO) Routine 09/08/2024 12:13 PM EDT Human immunodeficiency virus ([facility]/HCC) CBC WITH AUTO DIFFERENTIAL Routine 09/08/2024 12:13 PM EDT Human immunodeficiency virus ([facility]/HCC) INSULIN-LIKE GROWTH FACTOR 1 (IGF-1) WITH CALCULATED Z-SCORE (SO) Routine 09/08/2024 12:13 PM EDT Human immunodeficiency virus ([facility]/HCC) HERPES SIMPLEX VIRUS (HSV) BY PCR Routine 09/08/2024 11:50 AM EDT Superficial ulcerative lesion ([facility]/HCC) POC US BLADDER SCAN FOR VOLUME Routine 09/07/2024 10:43 AM EDT Nocturia POCT URINALYSIS DIPSTICK Routine 09/07/2024 10:35 AM EDT UT ARTHROCENTESIS ASPIR&/INJ MAJOR JT/BURSA W/US Routine 09/01/2024 9:00 AM EDT Primary osteoarthritis of both knees POC ULTRASOUND 09/01/2024 TESTOSTERONE, TOTAL Routine 08/17/2024 9 :01 AM EDT Low testosterone 21 BITEWING - SINGLE RADIOGRAPHIC IMAGE Routine 07/31/2024 9:45 AM EDT Pain, dental 21 INTRAORAL - PERIAPICAL FIRST RADIOGRAPHIC IMAGE Routine 07/31/2024 9:45 AM EDT Pain, dental LIMITED ORAL EVALUATION - PROBLEM FOCUSED Routine 07/31/2024 9:45 AM EDT Pain, dental TESTOSTERONE, TOTAL Routine 07/31/2024 9 :15 AM EDT Low testosterone COMPREHENSIVE ORAL EVALUATION - NEW OR ESTABLISHED PATIENT Routine 07/16/2024 10:00 AM EDT Teeth missing BITEWINGS - 4 RADIOGRAPHIC IMAGES Routine 07/16/2024 10:00 AM EDT Teeth missing PANORAMIC RADIOGRAPHIC IMAGE Routine 07/16/2024 10:00 AM EDT Teeth missing Full PROPHYLAXIS - ADULT Routine 07/16/2024 10:00 AM EDT Teeth missing TESTOSTERONE, TOTAL Routine 07/16/2024 9 :19 AM EDT Low testosterone HEMOGLOBIN A1C Routine 05/05/2024 12:17 PM EDT Essential (primary) hypertension DEXA BONE DENSITY Routine 11/14/2023 1:1 1 PM EDT Osteopenia, unspecified location COLONOSCOPY 04/18/2020 HEPATITIS C VIRUS (HCV) QUANTITATIVE PCR Routine 04/13/2020 10:09 AM EST from Last 3 Months or Most Recently Relevant to Health Maintenance Results * (ABNORMAL) CD4?? Percent and Absolute (SO) (09/08/2024 12:13 PM EDT) Absolute CD4 833 cells/uL 09/09/2024 6:01 PM EDT [facility]) CD4 Percent and Absolute Information See Note 09/09/2024 6:01 PM EDT [facility] PERCENT CD4 23(L) 35 - 68 % 09/09/2024 6:01 PM EDT [facility] ([facility]) Blood Venous blood specimen / Unknown Venipuncture / Unknown 09/08/2024 12:13 PM EDT 09/08/2024 12:13 PM EDT Narrative [facility]) - 09/09/2024 6:01 PM EDT INTERPRETIVE INFORMATION: CD4 Percent and Absolute Count The CD4 cells are [place] T-cells expressing both CD3 and CD4. CD4 [...] developed and its performance characteristics determined by [facility]. It has not been cleared or approved by the [place] Food and Drug Administration. This test was performed in a CLIA certified laboratory and is intended for clinical purposes. Performed By: [facility] [address] [place] [address] Network Cabler: Michael Low MD, PhD CLIA Number: [id number] Gracy Aguilar MD LAB REF LAB BLOOD AND FLUID ORD Final Result [facility] [address] [phone] * Insulin-Like Growth Factor 1 with calculated Z- score (09/08/2024 12:13 PM EDT) IGF 1 (Insulin-Like Growth Factor 1) 63 31 - 243 ng/mL 09/10/2024 4:12 AM EDT [facility]) IGF 1 Z Score Calculation -1.3 09/10/2024 4:12 AM EDT [facility] ([facility]) Blood Venous blood specimen / Unknown Venipuncture / Unknown 09/08/2024 12:13 PM EDT 09/08/2024 12:13 PM EDT Narrative [facility]) - 09/10/2024 4:12 AM EDT INTERPRETIVE INFORMATION: IGF 1 Z-SCORE CALCULATION A Z score is the number of standard deviations a given result is above (positive score) or below (negative score) the age- and sex-adjusted population mean. Results that are within the IGF-1 reference interval will have a Z score between -2.0 and +2.0. Performed By: [facility] [address] [place] [address] Network Cabler: Michael Low MD, PhD CLIA Number: [id number] us Gracy Aguilar MD LAB BLOOD ORDERABLES Final R esult [facility]) [address] [place] [id number] * Human Immunodeficiency Virus (HIV-1) Quantitative PCR (09/08/2024 12:13 PM EDT) Human Immunodeficiency Virus (HIV-1) Quant Interpretation Not Detected Not Detected 09/10/2024 2:13 PM EDT [facility] Blood Venous blood specimen / Unknown Venipuncture / Unknown 09/08/2024 12:13 PM EDT 09/08/2024 12:13 PM EDT Narrative [facility] - 09/10/2024 2:13 PM EDT The [...] MD LAB BLOOD ORDERABLES Final R esult [facility] [address] [place] [address] * (ABNORMAL) CBC and Differential (09/08/2024 12:13 PM EDT) Pathologist [facility] WBC Count 7.72 3.70 - 10.30 10*3/uL LAB HEMATOLOGY METHOD 09/08/2024 4:39 PM EDT [facility] RBC Count 4.58(L) 4.60 - 6.10 10*6/uL LAB HEMATOLOGY METHOD 09/08/2024 4:39 PM EDT [facility] HGB 14.4 13.7 - 17.5 g/dL LAB HEMATOLOGY METHOD 09/08/2024 4:39 PM EDT [facility] HCT 42.6 40.0 - 51.0 % LAB HEMATOLOGY METHOD 09/08/2024 4:39 PM EDT [facility] Platelet Count 88(L) 155 - 369 10*3/uL LAB HEMATOLOGY METHOD 09/08/2024 4:39 PM EDT [facility] MCV 93 79 - 98 fL LAB HEMATOLOGY METHOD 09/08/2024 4:39 PM EDT [facility] MCH 31.4 26.0 - 32.0 pg LAB HEMATOLOGY METHOD 09/08/2024 4:39 PM EDT [facility] MCHC 33.8 30.7 - 35.5 g/dL LAB HEMATOLOGY METHOD 09/08/2024 4:39 PM EDT [facility] RDW 15.2(H) 11.5 - 14.5 % LAB HEMATOLOGY METHOD 09/08/2024 4:39 PM EDT [facility] MPV 11.3 8.8 - 12.5 fL LAB HEMATOLOGY METHOD 09/08/2024 4:39 PM EDT [facility] nRBC 0.0 <=0.0 per 100 WBCs LAB HEMATOLOGY METHOD 09/08/2024 4:39 PM EDT [facility] Differential Type Automated LAB HEMATOLOGY METHOD 09/08/2024 4:39 PM EDT [facility] Neutrophils % 48 % LAB HEMATOLOGY METHOD 09/08/2024 4:39 PM EDT [facility] Lymphocytes % 38 % LAB HEMATOLOGY METHOD 09/08/2024 4:39 PM EDT [facility] Monocytes % 10 % LAB HEMATOLOGY METHOD 09/08/2024 4:39 PM EDT [facility] Eosinophils % 2 % LAB HEMATOLOGY METHOD 09/08/2024 4:39 PM EDT [facility] Basophils % 1 % LAB HEMATOLOGY METHOD 09/08/2024 4:39 PM EDT [facility] Immature Granulocytes % 1 % LAB HEMATOLOGY METHOD 09/08/2024 4:39 PM EDT [facility] Neutrophils Absolute 3.71 1.60 - 6.10 10*3/uL LAB HEMATOLOGY METHOD 09/08/2024 4:39 PM EDT [facility] Lymphocytes Absolute 2.90 1.20 - 3.90 10*3/uL LAB HEMATOLOGY METHOD 09/08/2024 4:39 PM EDT [facility] Monocytes Absolute 0.79 0.30 - 0.90 10*3/uL LAB HEMATOLOGY METHOD 09/08/2024 4:39 PM EDT [facility] Eosinophils Absolute 0.18 0.00 - 0.50 10*3/uL LAB HEMATOLOGY METHOD 09/08/2024 4:39 PM EDT [facility] Basophils Absolute 0.04 0.00 - 0.10 10*3/uL LAB HEMATOLOGY METHOD 09/08/2024 4:39 PM EDT [facility] Immature Granulocytes Absolute 0.10(H) 0.00 - 0.06 10*3/uL LAB HEMATOLOGY METHOD 09/08/2024 4:39 PM EDT [facility] Blood Venous blood specimen / Unknown Venipuncture / Unknown 09/08/2024 12:13 PM EDT 09/08/2024 12:13 PM EDT [facility] - 09/08/2024 4:39 PM EDT Therapeutic decision making should be based on absolute values, rather than percentages. us Gracy Aguilar MD LAB BLOOD ORDERABLES Final R esult [facility] [address] [place] [address] * (ABNORMAL) Comprehensive Metabolic Panel, Plasma (09/08/2024 12:13 PM EDT) [facility] Glucose, Plasma 82 74 - 99 mg/dL 09/08/2024 4:07 PM EDT [facility] BUN, Plasma 13 8 - 23 mg/dL 09/08/2024 4:07 PM EDT [facility] Creatinine, Plasma 1.14 0.70 - 1.20 mg/dL 09/08/2024 4:07 PM EDT [facility] BUN/Creatinine Ratio 11 09/08/2024 4:07 PM EDT [facility] Sodium, Plasma 142 136 - 145 mmol/L 09/08/2024 4:07 PM EDT [facility] Potassium, Plasma 4.3 3.6 - 4.9 mmol/L 09/08/2024 4:07 PM EDT [facility] Chloride, Plasma 107 97 - 107 mmol/L 09/08/2024 4:07 PM EDT [facility] CO2, Plasma 24 22 - 29 mmol/L 09/08/2024 4:07 PM EDT [facility] Anion Gap 11 6 - 16 mmol/L 09/08/2024 4:07 PM EDT [facility] Total Calcium, Plasma 9.3 8.9 - 10.2 mg/dL 09/08/2024 4:07 PM EDT [facility] Total Protein 7.6 6.3 - 7.9 g/dL 09/08/2024 4:07 PM EDT [facility] Albumin, Plasma 4.2 3.5 - 5.2 g/dL 09/08/2024 4:07 PM EDT [facility] AST, Plasma 30 10 - 50 U/L 09/08/2024 4:07 PM EDT [facility] ALT, Plasma 28 10 - 50 U/L 09/08/2024 4:07 PM EDT [facility] Alkaline Phosphatase, Plasma 93 40 - 115 U/L 09/08/2024 4:07 PM EDT [facility] Total Bilirubin, Plasma 1.7(H) 0.2 - 1.1 mg/dL 09/08/2024 4:07 PM EDT [facility] eGFRcr 70.1 mL/min/1.7 3m*2 09/08/2024 4:07 PM EDT [facility] Comment:Reported eGFRcr in m L/min/1.73m2 is based the CKD-EPI 2020 equation that does not use a race coefficient. Blood Venous blood specimen / Unknown Venipuncture / Unknown 09/08/2024 12:13 PM EDT 09/08/2024 12:13 PM EDT us Gracy Aguilar MD LAB BLOOD ORDERABLES Final R esult Performing Organization Address [facility]/[place] [address] * (ABNORMAL) Herpes Simplex Virus (HSV) by PCR (09/08/2024 11:50 AM EDT) Herpes Simplex Virus 1 (HSV-1) PCR Result Not Detected Not Detected 09/09/2024 6:30 AM EDT [facility] Herpes Simplex Virus 2 (HSV-2) PCR Result Detected(A) Not Detected 09/09/2024 6:30 AM EDT [facility] Swab Rectum structure / Unknown Non-blood Collection / Unknown 09/08/2024 11:50 AM EDT 09/08/2024 11:59 AM EDT Narrative [facility] - 09/09/2024 6:30 AM EDT The FDA approved specimen sources for this assay are CSF, cutaneous, and mucocutaneous sites. These results should be used in conjunction with other clinical tests and findings and should not be the sole basis for diagnosis or treatment of the patient. us Gracy Aguilar MD LAB MICROBIOLOGY - GENERAL O RDERABLES Final Result Performing Organization Address [facility]/ZIP Co de Phone Number [address] [address] * POC US Bladder Volume (09/07/2024 10:43 AM EDT) Urine, Volume 4 mL IMAGING Anatomical Region Laterality Modality Other us Maria Elena BATISTA IMG POINT OF CARE ULTRASOUND F inal Result * (ABNORMAL) POCT URINALYSIS DIPSTICK (09/07/2024 10:35 AM EDT) POCT Urine Color Dark Yellow 09/07/2024 10:36 AM EDT [facility] POCT Urine Clarity Clear 09/07/2024 10:36 AM EDT [facility] POCT Urine Glucose Negative Negative mg/dL 09/07/2024 10:36 AM EDT [facility] POCT Urine Bilirubin Negative Negative mg/dL 09/07/2024 10:36 AM EDT [facility] POCT Urine Ketones Negative Negative mg/dL 09/07/2024 10:36 AM EDT [facility] POCT Urine Specific [place] >=1.030 1.005 - 1.030 09/07/2024 10:36 AM EDT [facility] POCT Urine Blood Moderate(A) Negative 09/07/2024 10:36 AM EDT [facility] POCT pH, Urine 5.5 5.0 - 8.0 09/07/2024 10:36 AM EDT [facility] Protein, Urine >=300(A) Negative mg/dL 09/07/2024 10:36 AM EDT [facility] POCT Urobilinogen, Urine 0.2 0.2, 1.0 EU/dL 09/07/2024 10:36 AM EDT [facility] POCT Nitrite, Urine Negative Negative 09/07/2024 10:36 AM EDT [facility] POCT Urine Leukocyte Esterase Negative Negative 09/07/2024 10:36 AM EDT [facility] Urine 09/07/2024 10:3 5 AM EDT 09/07/2024 10:37 AM EDT us Maria Elena BATISTA LAB POINT OF CARE TE ST DOCKED DEVICE UNSOLICITED RESULTS Final Result [facility] [address] [place], [place] * UT ARTHROCENTESIS ASPIR&/INJ MAJOR JT/BURSA W/US (09/01/2024 9:00 [...] to verify the correct patient, procedure, equipment, air support control officer and site/side marked as required. Patient was prepped and draped in the usual sterile fashion. Procedure, treatment alternatives, risks and benefits explained, specific risks discussed. Consent was given by the patient. Immediately prior to procedure a time out was called to verify the correct patient, procedure, equipment, air support control officer and site/side marked as required. Patient was prepped and draped in the usual sterile fashion. Jonathan Armando MD IN CLINIC/BEDSIDE ORDERABLES E dited Result - Final * POC Imaging (09/01/2024) Anatomical Region Laterality Modality Pelvis Other 09/01/2024 External Provider IMG POINT OF CARE ULTRASOUND F inal Result * (ABNORMAL) Testosterone Total (08/17/2024 9:01 AM EDT) Only the most recent of3 resultswithin the time period is included. Testosterone Total 974.7(H) 264.0 - 916.0 ng/dL 08/19/2024 10:22 AM EDT [facility] Blood Venous blood specimen / Unknown Venipuncture / Unknown 08/17/2024 9:01 AM EDT 08/17/2024 9:01 AM EDT Narrative [facility] - 08/19/2024 10:22 AM EDT Test performed by LC-MS/MS at the [facility]. This test was developed and its performance characteristics determined by [facility]. It has not been cleared or approved by the FDA. The laboratory is regulated under CLIA as qualified to perform high-complexity testing. This test is used for clinical purposes. us Nati Judge APRN, DNP LAB BLOOD ORDERABLES Fi nal Result Performing Organization Address [facility] Co de Phone Number [facility] [address] [place] [address] * Hemoglobin A1c (05/05/2024 12:17 PM EDT) Hemoglobin A1c 5.3 <5.7 % 05/05/2024 1:49 PM EDT [facility] Blood Venous blood specimen / Unknown Venipuncture / Unknown 05/05/2024 12:17 PM EDT 05/05/2024 12:17 PM EDT Narrative [facility] - 05/05/2024 1:49 PM EDT HA1C Interpretive Data: Diagnosis of Diabetes: Diabetic > or = 6.5% Pre-diabetic 5.7 to 6.4% Non-diabetic < or = 5.6% Glycemic Targets for Type I and Type II Diabetics: Non- Adults <7.0% Adults <6.0% Children and Adolescents <7.5% Source: [place] [employer]. Standards of medical care in diabetes,2017. Diabetes Care.2017:40 (suppl 1):S1-S135. HbA1c assay performed by an ion-exchange chromatography method that is certified traceable to the DCCT. us Vandana Urbina MD LAB BLOOD ORDERABLES Final Result Performing Organization Address [facility] [place] [address] * Dexa Bone Density (11/14/2023 1:11 PM EDT) Anatomical Region Laterality Modality L-spine Nuclear Medicine Impressions 11/14/2023 1:36 PM EDT Low bone mass/osteopenia. Using the WHO fracture risk assessment model (FRAX), the highest calculated 10- year probabilities for major osteoporosis-related fracture and hip fracture are 18% and 4.3%, respectively. According to National Osteoporosis Foundation and WHO guidelines, treatment for osteoporosis is recommended for those with 20% or higher risk of major fracture or a 3% or higher risk of hip fracture. In comparison to the previous DXA, there has been a significant loss in BMD in the lumbar spine. There has been a significant loss in BMD in the left hip. There has not been a significant change in BMD in the right hip. RECOMMENDATIONS: Based on the 10-year probability of 20% or higher risk for major fracture or 3% or higher risk of hip fracture, FDA-approved medical therapy beyond supplemental calcium and vitamin D is recommended. Timing of follow-up DXA should be determined based on clinical assessment, and may be appropriate in two years to evaluate change in BMD. A follow-up DXA should be performed on the same DXA scanner to allow for direct comparison and calculation of change in BMD. CRITICAL RESULT: No. COMMUNICATION: Per this written report. Drafted by Troy Welsh MD on 11/14/2023 1:33 PM Final report signed by Troy Welsh MD on 11/14/2023 1:36 PM Narrative 11/14/2023 1:36 PM EDT CLINICAL INDICATION: Male who is 68 years of age. Osteopenia. TECHNIQUE: Bone mineral density (BMD) testing of two or more of the following sites: lumbar spine, left hip, right hip, left forearm, right forearm was performed using a [employer] Horizon A Dual-energy X-ray Absorptiometry (DXA) scanner (software version 13.6.1.2). Sites may be excluded because of surgical hardware, prosthesis, or other source of artifact. COMPARISON/CORRELATION: Compared to 09/11/2022 with calculated changes in BMD. No correlative imaging. FINDINGS: The technical quality is acceptable. For males 50 years of age or older, the T-scores are used in the assessment. Based on The World Health Organization classification system: Normal bone mass is defined as BMD above normal or equal to/less than one standard deviation below normal; Low bone mass/osteopenia is defined as BMD more than one standard deviation below normal, but less than 2.5 standard deviations below normal; Osteoporosis is defined as BMD equal to/more than 2.5 standard deviations below normal. Lumbar Spine: The BMD of L1-L4 is 0.934 g/cm2, corresponding to a T-score of -1.4. There are sclerotic changes related to osteoarthritis and/or scoliosis that could falsely elevate the measured BMD. Given a greater than 1.0 difference in T-scores between adjacent vertebrae, L1-L2 is also analyzed, and the BMD is 0.826 g/cm2, corresponding to a T-score of -2.1. In comparison to the previous DXA and based on the local precision error (Least Significant Change) for the L1-L4 lumbar spine, the BMD of the lumbar spine has decreased by 6.7%, representing a significant change. Left Hip: The BMD of the femoral neck is 0.679 g/cm2, corresponding to a T-score of -1.8 and the BMD of the total hip is 0.853 g/cm2, corresponding to a T-score of -1.2. In comparison to the previous DXA and based on the local precision error (Least Significant Change) for the total hip, the BMD of the hip has decreased by 3.6%, representing a significant change. Right Hip: The BMD of the femoral neck is 0.643 g/cm2, corresponding to a T- score of -2.1 and the BMD of the total hip is 0.856 g/cm2, corresponding to a T-score of -1.2. In comparison to the previous DXA and based on the local precision error (Least Significant Change) for the total hip, the BMD of the hip has decreased by 2.6%, not representing a significant change. Procedure Note Maddie Welsh MD - 11/14/2023 CLINICAL INDICATION: Male who is 68 years of age. Osteopenia. TECHNIQUE: Bone mineral density (BMD) testing of two or more of the following sites:lumbar spine, left hip, right hip, left forearm, right forearm wasperformed using a [employer] Horizon A Dual-energy X-ray Absorptiometry (DXA)scanner (software version 13.6.1.2). Sites may be excluded because ofsurgical hardware, prosthesis, or other source of artifact. COMPARISON/CORRELATION: Compared to 09/11/2022 with calculated changes in BMD. No correlativeimaging. FINDINGS: The technical quality is acceptable. For males 50 years of age or older, the T-scores are used in theassessment. Based on The World Health Organization classificationsystem: Normal bone mass is defined as BMD above normal or equal to/less than onestandard deviation below normal; Low bone mass/osteopenia is defined as BMD more than one standarddeviation below normal, but less than 2.5 standard deviations belownormal; Osteoporosis is defined as BMD equal to/more than 2.5 standard deviationsbelow normal. Lumbar Spine: The BMD of L1-L4 is 0.934 g/cm2, corresponding to a T-scoreof -1.4. There are sclerotic changes related to osteoarthritis and/orscoliosis that could falsely elevate the measured BMD. Given a greaterthan 1.0 difference in T-scores between adjacent vertebrae, L1-L2 is alsoanalyzed, and the BMD is 0.826 g/cm2, corresponding to a T-score of -2.1.In comparison to the previous DXA and based on the local precision error(Least Significant Change) for the L1-L4 lumbar spine, the BMD of thelumbar spine has decreased by 6.7%, representing a significant change. Left Hip: The BMD of the femoral neck is 0.679 g/cm2, corresponding to aT-score of -1.8 and the BMD of the total hip is 0.853 g/cm2, correspondingto a T-score of - 1.2. In comparison to the previous DXA and based on thelocal precision error (Least Significant Change) for the total hip, theBMD of the hip has decreased by 3.6%, representing a significant change. Right Hip: The BMD of the femoral neck is 0.643 g/cm2, corresponding to aT-score of -2.1 and the BMD of the total hip is 0.856 g/cm2, correspondingto a T-score of - 1.2. In comparison to the previous DXA and based on thelocal precision error (Least Significant Change) for the total hip, theBMD of the hip has decreased by 2.6%, not representing a significantchange. IMPRESSION: Low bone mass/osteopenia. Using the WHO fracture risk assessment model (FRAX), the highestcalculated 10- year probabilities for major osteoporosis-related fractureand hip fracture are 18% and 4.3%, respectively. According to NationalOsteoporosis Foundation and WHO guidelines, treatment for osteoporosis isrecommended for those with 20% or higher risk of major fracture or a 3% orhigher risk of hip fracture. In comparison to the previous DXA, there has been a significant loss inBMD in the lumbar spine. There has been a significant loss in BMD in theleft hip. There has not been a significant change in BMD in the right hip. RECOMMENDATIONS: Based on the 10-year probability of 20% or higher risk for major fractureor 3% or higher risk of hip fracture, FDA-approved medical therapy beyondsupplemental calcium and vitamin D is recommended. Timing of follow-up DXA should be determined based on clinical assessment,and may be appropriate in two years to evaluate change in BMD. A follow-upDXA should be performed on the same DXA scanner to allow for directcomparison and calculation of change in BMD. CRITICAL RESULT: No. COMMUNICATION: Per this written report. Drafted by Troy Welsh MD on 11/14/2023 1:33 PM Final report signed by Troy Welsh MD on 11/14/2023 1:36 PM Vandana Urbina MD IMG DXA PROCEDURES Final Re sult * COLONOSCOPY (04/18/2020) Anatomical Region Laterality Modality Endoscopy Narrative 04/18/2020 Ordered by an unspecified provider. Historical Provider GI PROCEDURE ORDERABLES Bertha l Result * Hepatitis C Virus (HCV) Quantitative PCR (04/13/2020 10:09 AM EST) Hepatitis C Virus (HCV) Quantitative Viral Load Log Result <1.08 [facility] Hepatitis C Virus (HCV) Quantitative IU/mL Result <12 [facility] HCV Quantitative PCR Comment Reference Interval: Not Detected, Log IU/mL <1.08, IU/mL <12 [facility] Comment: The [employer] M2000 HCV test is a Real Time in vitro nucleic acid amplification test for the quantitation of Hepatitis C Viral (HCV) RNA in human serum in HCV-infected individuals. It is intended for use as an aid in the management of HCV-infected individuals undergoing anti-viral therapy. The dynamic range for this test is log10 = 1.08 to 8.00and/or 12 to 100,000,000 IU/mL. The limit of detection (LOD) for this assay is 12 IU/mL and the limit of quantitation (LOQ) is 12 IU/mL. This assay is FDA approved for clinical use. 04/13/2020 10:0 9 AM EST 04/13/2020 11:21 AM EST Narrative [facility] - 04/15/2020 3:26 PM EST HCV RNA NOT DETECTED HCV RNA NOT DETECTED Maddie Yin Mila UNIT ASSEMBLER, DNP LAB BLOOD ORDERABLES Final Result [facility] from Last 3 Months or Most Recently Relevant to Health Maintenance Additional Health Concerns Active Problems Noted Date Diagnosed Date Treatment Adherence 09/02/2024 Insurance BALAJICHANTEL LINARES [id number] INFECTIOUS DISEASE PROGRAM INFECTIOUS DISEASE PROGRAM ANTHEM MEDICARE [employer] INFECTIOUS DISEASE PROGRAM [address] [place] [address] Advance Directives * Full Code (Latest Code Status on File) Date Activated Date Inactivated Comments 06/20/2022 5:08 AM 06/28/2022 8:24 PM Question Answer Comments Patient has decision-making capacity? Yes Care Teams Proposal Specialist Relationship Specialty Start Date End Date Vandana Urbina MD [address] [place] [address] PCP - General Internal Medicine 05/02/23 Lashay Maynard [place] [id number] Backhaul Driver Loan Interviewer 05/31/21 Gracy Aguilar MD [address] [place] [address] [address] [place] [address] Consulting Physician Infectious Diseases 03/26/23 Chuck Kaplan PA [address] [place] [address] [address] [place] [address] Physician Nurses Superintendent Infectious Diseases 03/26/23 Maria Elena Lizarraga PA [address] [id number] Physician Nurses Superintendent Urology 03/09/24
--- OUTSIDE RECORDS SUMMARY | 2024-10-16 10:31 | XMS_ITS | Encounter Summary ---
Author Organization [facility] Address [address] [place] [address] Care Team Providers Care Contract Serviceman Name Role Phone Gracy Aguilar Primary Care Provider UnavailKenton Espinoza MD Primary Care Provider [phone] Lashay Maynard Unavailable Unavailable Eduardo Montez Primary Care Provider [phone] Gaby Maciel Unavailable Unavailable Ramya Vaughn LPN Unavailable Unavailable Madelyn Kamara Primary Care Provider [phone] Pcp, No Primary Care Provider UnavailGracy Woodard MD Unavailable [phone] Chuck Kaplan Unavailable [phone] Eduardo Montez Primary Care Provider Vandana Urbina MD Primary Care Provider [phone] Maria Elena Lizarraga Unavailable [phone] Reason for Visit * Reason Onset Date Comments Med Refill Med Refill 10/25/2020 Encounter Details Date Type Department Care Team (Late st Contact Info) Description 10/24/2020 [facility] [address] [place] [address] Gracy Aguilar MD [address] [facility] [address] [place] [address] Social History Tobacco Use Types Packs/Day Years Used Date Smoking Tobacco: Never Smokeless Tobacco: Never Alcohol Use Standard Drinks/Week Comments Yes 4 (1 standard drink = 0.6 oz pure alcohol) Alcoholic Drinks/day: Occasional alcohol use PHQ-2 Answer Date Recorded Patient Health Questionnaire-2 Score 0 10/20/2020 Sex and Gender Information Value Date Recorded Sex Assigned at Not on file Legal Sex Male 8:00 PM EDT Gender Identity Not on file Sexual Orientation Not on file COVID-19 Exposure Response Date Recorded In the last month, have you been in contact with someone who was confirmed or suspected to have Coronavirus / COVID-19? No / Unsure 10/25/2020 6:16 AM EDT documented as of this encounter Plan of Treatment Upcoming Encounters Date Type Department Care Team (Late st Contact Info) Description 10/19/2024 1:20 PM EDT Office Visit [facility] Medicine Specialties [address] [place] [address] Clara Bartholomew PA [address] [place] [address] 10/27/2024 10:30 AM EDT Office Visit [facility] [address] [facility] [address] [place] [address] 10/29/2024 9:30 AM EDT Office Visit [facility] Medicine Specialties [address] [place] [address] Nikkie Aguirre PA [address] [place] [address] 11/10/2024 11:00 AM EDT Office Visit [facility] Internal Medicine [address] [place] [address] Vandana Urbina MD [address] [place] [address] 11/16/2024 10:30 AM EDT Office Visit [facility] Urology [address] [place] [address] Maria Elena Lizarraga PA [address] [place] [address] 11/19/2024 10:00 AM EDT Clinical Support [facility] Lab [address] [place] [address] 11/26/2024 9:50 AM EDT Office Visit [facility] Urology [address] [place] [address] Nati Judge, RUBY, VALERIO [address] [place] [address] 12/08/2024 8:30 AM EDT Procedure Visit [facility] Orthopaedic Surgery & Sports Medicine [address] [facility], [address] [place] [address] Jonathan Armando MD [address] [facility] [address] [place] [address] 12/17/2024 3:00 PM EST Office Visit [facility] General Surgery [address] [place] [address] Germain Botello MD [address] [place] [address] 01/11/2025 9:30 AM EST Clinical Support [facility] Lab [address] [place] [address] 01/18/2025 10:50 AM EST Office Visit [facility] Urology [address] [place] [address] Nati Judge, RESIDENT DIRECTOR, DNP [address] [place] [address] 01/28/2025 1:30 PM EST Office Visit [facility] [address] [facility] [place] [address] Gracy Aguilar MD [address] [facility] [address] [place] [address] 03/15/2025 1:15 PM EST Office Visit [facility] Eye Care [address] [place] [address] Renee Graham, OD [address] [place] [address] 06/01/2025 11:30 AM EDT Clinical Support [place] [facility] [address] [place] [address] 06/08/2025 1:40 PM EDT Office Visit [facility] Nephrology, Bone & Mineral Metabolism [address] [facility], [address] [place] [address] Marco Brandt MD [address] [place] [address] documented as of this encounter [...] 05/21/2023 9:31 AM EDT Assessment Noted Time A fall risk assessment has been complete d for the patient 10/20/2020 2:58 PM EDT documented as of this encounter Care Teams Contract Serviceman Relationship Specialty Start Date End Date Lauren Gracy [place] PCP - General Family Medicine 09/29/20 12/21/20 Kenton Servin MD [address] [place] [address] PCP - General Internal Medicine 04/21/21 06/25/21 Eduardo Montez PA [address] [place] [address] PCP - General Internal Medicine 06/26/21 08/16/22 Madelyn Kamara PA [address] [place] [address] PCP - General Internal Medicine 08/17/22 12/26/22 [facility], [place] [place] [address] PCP - General Family Medicine 01/08/23 04/24/23 Eduardo Montez PA [address] [place] [address] PCP - General Internal Medicine 04/25/23 05/01/23 Vandana Urbina MD [address] [place] [address] PCP - General Internal Medicine 05/02/23 [place] [address] Behavioral Medical Director Order Puller 05/31/21 [place] [address] [employer] Navigator 06/15/22 07/15/22 Ramya Vaughn LPN [employer] [address] TCM Nurse 06/29/22 07/27/22 Gracy Aguilar MD [address] [place] [address] [address] [place] [address] Consulting Physician Infectious Diseases 03/26/23 Chuck Kaplan PA [address] [place] [address] [address] [place] [address] Physician Esthetician Makeup Artist Infectious Diseases 03/26/23 Maria Elena Lizarraga PA [address] [facility] [address] [place] [address] Physician Esthetician Makeup Artist Urology 03/09/24 documented as of this encounter
--- OUTSIDE RECORDS SUMMARY | 2024-10-16 10:31 | XMS_ITS | Encounter Summary ---
Author Organization [facility] Address [address] [place] [address] Care Team Providers Care Warehouse Operations Manager Name Role Phone Lashay Maynard Arin Unavailable Unavailable Gracy Aguilar MD Unavailable [phone] Chuck Kaplan Unavailable [phone] Vandana Urbina MD Primary Care Provider [phone] Maria Elena Lizarraga Unavailable [phone] Encounter Details Date Type Department Care Team (Late st Contact Info) Description 09/09/2024 Results Follow-Up [facility] [address] [place] [id number] Gracy Aguilar MD [address] [facility] [address] [place] [address] Social History Tobacco Use Types [...] often do you attend chur ch or uatsdin services? Never 05/02/2023 Do you belong to [...] Recorded Patient Health Questionnaire-2 Score 0 09/08/2024 [facility] - Occupational Stress Questionnaire Answer Date [...] place to sleep or slept in a custodial (including now)? No 11/05/2023 PHQ-9 Answer Date [...] any time in the past 12 m [facility], were you homeless or living in a custodial (including now)? No 05/05/2024 Safety and Environment [...] drink first t mina in the morning (EYE-ROOM SERVICE FOOD SERVER) to steady your nerves or to get rid of a hangover? 0 06/20/2022 CAGE Questionnaire Score 0 023 Utilities Answer Date Recorded In the past 12 months has th e [employer], gas, oil, or water company threatened to [...] 1:20 PM EDT Office Visit [facility] Medicine Specialties [address], [address]nd [place] [address] Clara Bartholomew PA [address] [place] [address] 10/27/2024 10:30 AM EDT Office Visit [facility] [address] [facility] [address] [place] [address] 10/29/2024 9:30 AM EDT Office Visit [facility] Medicine Specialties [address] 2nd [place] [address] Nikkie Aguirre PA [address] [place] [address] 11/10/2024 11:00 AM EDT Office Visit [facility] Internal Medicine [address], 3rd [place] [address] Vandana Urbina MD [address] [place] [address] 11/16/2024 10:30 AM EDT Office Visit [facility] Urology [address], [address]nd [place] [address] Maria Elena Lizarraga PA [address] [place] [address] 11/19/2024 10:00 AM EDT Clinical Support [facility] [address] [place] [address] 11/26/2024 9:50 AM EDT Office Visit [facility] Urology [address] [place] [address] Nati Judge, SCALES INSPECTOR, DNP [address] [place] [address] 12/08/2024 8:30 AM EDT Procedure Visit [facility] Orthopaedic Surgery & Sports Medicine [address], [address] [place] [address] Jonathan Armando MD [address] [place] [address] 12/17/2024 3:00 PM EST Office Visit [facility] General Surgery [address], 1st [place] [address] Germain Botello MD [address] [place] [address] 01/11/2025 9:30 AM EST Clinical Support [facility] [address] 2[address] [place] [address] 01/18/2025 10:50 AM EST Office Visit [facility] Urology [address] 2nd [place] [address] Nati Judge P, SCALES INSPECTOR, DNP [address] [place] [address] 01/28/2025 1:30 PM EST Office Visit [facility] [address] [facility] [place] [address] Gracy Aguilar MD [address] [place] [address] 03/15/2025 1:15 PM EST Office Visit [facility] [address] [place] [address] Renee Graham S, OD [address] [place] [address] 06/01/2025 11:30 AM EDT Clinical Support [facility] [address] [place] [address] 06/08/2025 1:40 PM EDT Office Visit [facility] Nephrology, Bone & Mineral Metabolism [address] [facility], [address] [place] [address] Marco Brandt MD [address] [place] [address] documented as of this encounter [...] documented as of this encounter Care Teams Warehouse Operations Manager Relationship Specialty Start Date End Date Vandana Urbina MD [address] [place] [address] PCP - General Internal Medicine 05/02/23 [address], [place] [address] Performance Solutions Specialist Mixing Tumbler Operator 05/31/21 Gracy Aguilar MD [address] [place] [address] [address] [place] [address] Consulting Physician Infectious Diseases 03/26/23 Chuck Kaplan PA [address] [place] [address] Physician Template Fitter Infectious Diseases 03/26/23 Maria Elena Lizarraga PA [address] [facility] [address] [place] [address] Physician Template Fitter Urology 03/09/24 documented as of this encounter
--- OUTSIDE RECORDS SUMMARY | 2024-10-16 10:31 | XMS_ITS | Encounter Summary ---
Author Organization [facility] Address [address] [place] [address] Care Team Providers Care Director Product Management Name Role Phone Lashay Maynard Unavailable Unavailable Gracy Aguilar MD Unavailable [phone] Chuck Kaplan Unavailable [phone] Vandana Urbina MD Primary Care Provider [phone] Maria Elena Lizarraga Unavailable [phone] Reason for Referral * Other Medical (Routine) - Pending Review Specialty Diagnoses / Procedures Referred By Contcurtis t Referred To Contact Sports Medicine Diagnoses Primary osteoarthritis of both knees Procedures Sports Medicine - USG Injection, Large Joint Jonathan Armando MD [address] [place] [address] Phone: tel: fax: [facility] [address], [address] [place] [address] Phone: tel: fax: Referral ID Status Reason Start Date Expiration Date V isits Requested Visits Authorized [id number] Pending Review 10/06/2024 04/07/2026 1 1 Encounter Details Date Type Department Care Team (Late st Contact Info) Description 10/06/2024 [facility] Only [facility] [address], [address] [place] [address] Ravin Gloria MD [address] [id number] Primary osteoarthritis of both knees (Primary Dx) [...] week 05/02/2023 How often do you attend [facility] or episcopal services? Never 05/02/2023 Do you belong to any clubs o r organizations such as religious groups, unions, fraternal or athletic groups, or [...] Recorded Patient Health Questionnaire-2 Score 0 09/08/2024 [facility] [place] of Occupat ional [facility] - [...] any time in the past 12 m [facility], were you homeless or [...] drink first t mina in the morning (EYE-WEIGHER BULKER) to steady your nerves or to get [...] 5:50 PM STEPHENT Tabatha Sosa RN * Are you blind [...] 1:20 PM EDT Office Visit [facility] Medicine Specialties [address] 2nd [place] [address] Clara Bartholomew PA [address] [place] [address] 10/27/2024 10:30 AM EDT Office Visit [facility] [address] [facility] [address] [place] [address] 10/29/2024 9:30 AM EDT Office Visit [facility] Medicine Specialties [address]nd [place] [address] Nikkie Aguirre PA [address] [place] [address] 11/10/2024 11:00 AM EDT Office Visit [facility] Internal Medicine [address], 3rd [place] [address] Vandana Urbina MD [address] [place] [address] 11/16/2024 10:30 AM EDT Office Visit [facility] Urology [address], 2nd [place] [address] Maria Elena Lizarraga PA [address] [place] [address] 11/19/2024 10:00 AM EDT Clinical Support [facility] Lab [address], 2nd [place] [address] 11/26/2024 9:50 AM EDT Office Visit [facility] Urology [address], 2nd [place] [address] Nati Judge APRN, DNP [address] [place] [address] 12/08/2024 8:30 AM EDT Procedure Visit [facility] Medicine [address] [facility] [place] [address] Jonathan Armando MD [address] [facility] [address] [place] [address] 12/17/2024 3:00 PM EST Office Visit [facility] General Surgery [address], 1st [place] [address] Germain Botello MD [address] [place] [address] 01/11/2025 9:30 AM EST Clinical Support [facility] Lab [address], [address] [place] [address] 01/18/2025 10:50 AM EST Office Visit [facility] Urology [address], 2nd [place] [address] Nati Judge APRN, DNP [address] [place] [address] 01/28/2025 1:30 PM EST Office Visit [facility] [address] [facility] [place] [address] Gracy Aguilar MD [address] [facility] [address] [place] [address] 03/15/2025 1:15 PM EST Office Visit [facility] Advanced Eye Care [address] [place] [address] Renee Graham S, OD [address] [place] [address] 06/01/2025 11:30 AM EDT Clinical Support [facility] [address] [place] [address] 06/08/2025 1:40 PM EDT Office Visit [facility] Nephrology, Bone & Mineral Metabolism [address] [facility] [place] [address] Marco Brandt MD [address] [place] [address] Scheduled Orders Name Type Priority Associated Diagnoses Orde r Schedule Sports Medicine - USG Injection, Large Joint Procedures Routine Primary osteoarthritis of both knees Expected: 10/06/2024 (Approximate), Expires: 04/09/2026 documented as of this encounter Goals Goal Patient Goal Type Associated Problems Recent Progress Patient-Stated? Author Patient to remain active in HIV care Care Plan Treatment Adherence On track( 1:48 PM EDT) Lisette Tom Patient to remain active on part B services/RW shama-eligible Care Plan Treatment Adherence On track( 024 1:48 PM EDT) iLsette Tom Improve Knee Pain Care Plan Treatment Adherence On track( 024 1:51 PM EDT) Lisette Tom Note: Patient continues to take excellent care of his knee pain. He receives Gel Knee injections 2x per year. He reports having no knee pain. documented as of this encounter Visit Diagnoses Diagnosis Primary osteoarthritis of both knees- Primary documented in this encounter Additional Health [...] as of this encounter Care Teams Director Product Management Relationship Specialty Start Date End Date Vandana Urbina MD [address] [facility] [address] [place] [address] PCP - General Internal Medicine 05/02/23 [place] [address] Ultimate Hoops Trainer Siebel Consultant 05/31/21 Gracy Aguilar MD [address] [place] [address] [address] [place] [address] Consulting Physician Infectious Diseases 03/26/23 Chuck Kaplan PA [address] [place] [address] [address] [place] [address] Physician Casing Tester Infectious Diseases 03/26/23 Maria Elena Lizarraga PA [address] [facility] [address] [place] [address] Physician Casing Tester Urology 03/09/24 documented as of this encounter
--- OUTSIDE RECORDS SUMMARY | 2024-10-16 10:31 | XMS_ITS | Encounter Summary ---
Author Organization [facility] Address [address] [place] [address] Care Team Providers Care Director Of Radiology Name Role Phone Lashay Maynard Arin Unavailable Unavailable Gracy Aguilar MD Unavailable [phone] Chuck Kaplan Unavailable [phone] Vandana Urbina MD Primary Care Provider [phone] Maria Elena Lizarraga Unavailable [phone] Reason for Visit * Reason Onset Date Comments HCN - Patient Message 10/05/2024 Encounter Details Date Type Department Care Team (Late st Contact Info) Description 10/05/2024 Telephone [facility] Orthopaedic Surgery & Sports Medicine [address] [facility], [address] [place] [address] Jonathan Armando MD [address] [place] [address] HCN - Patient Message Social History Tobacco Use Types Packs/Day Years [...] How often do you attend chur or lutheran services? Never 05/02/2023 Do you belong to [...] Patient Health Questionnaire-2 Score 0 09/08/2024 [facility] - Occupational Stress Questionnaire Answer [...] place to sleep or slept in a intermediate (including now)? No 11/05/2023 PHQ-9 Answer Date [...] any time in the past 12 m [facility], were you homeless or living in a intermediate (including now)? No 05/05/2024 Safety and Environment [...] drink first t mina in the morning (EYE-SEED MILL SUPERINTENDENT) to steady your nerves or to get rid of a hangover? 0 06/20/2022 CAGE Questionnaire Score 0 023 Utilities Answer Date Recorded In the past 12 months has e [employer], gas, oil, or water [employer] threatened to shut off services in your [...] encounter Miscellaneous Notes * Telephone Encounter - Meghan Kendirck - 10/08/2024 9:02 AM EDT Patient called and scheduled. Patient states he got cortisone injection last appt in December * Telephone Encounter - Jade Luna - 10/05/2024 3:49 PM EDT Clinical Concern/Question Reason for Call: Tr patient calling, he is requesting to schedule gel injections for his knees in November Best contact number: [phone] (mobile) Optimal time of day to reach caller: ANYTIME Additional comments/information from caller: None Note: Please do not reply to this message. Follow-up communication and further actions as a result of this message need to be communicated with the patient directly, if the patient is not active onMyChart. If the patient is active on MyChart, they will receive notification of the communication/outcome via MyChart. documented in this encounter Plan of Treatment Upcoming Encounters Date Type Department Care Team (Late st Contact Info) Description 10/19/2024 1:20 PM EDT Office Visit [facility] Medicine Specialties [address]nd [place] [address] Clara Bartholomew PA [address] [place] [address] 10/27/2024 10:30 AM EDT Office Visit [facility] [address] [facility] [address] [place] [address] 10/29/2024 9:30 AM EDT Office Visit [facility] Medicine Specialties [address] [place] [address] Nikkie Aguirre PA [address] [place] [address] 11/10/2024 11:00 AM EDT Office Visit [facility] Internal Medicine [address], 3rd [place] [address] Vandana Urbina MD [address] [place] [address] 11/16/2024 10:30 AM EDT Office Visit [facility] Urology [address], 2nd [place] [address] Maria Elena Lizarraga PA [address] [place] [address] 11/19/2024 10:00 AM EDT Clinical Support [facility] Lab [address] [place] [address] 11/26/2024 9:50 AM EDT Office Visit [facility] Urology [address] 2nd [place] [address] Nati Judge, ACCREDITATION MANAGER, VALERIO [address] [place] [address] 12/08/2024 8:30 AM EDT Procedure Visit [facility] Orthopaedic Surgery & Sports Medicine [address] [facility], [address] [place] [address] Jonathan Armando MD [address] [facility] [address] [facility] [address] [place] [address] 12/17/2024 3:00 PM EST Office Visit [facility] General Surgery [address] 1[address] [place] [address] Germain Botello MD [address] [place] [address] 01/11/2025 9:30 AM EST Clinical Support [facility] Lab [address] [place] [address] 01/18/2025 10:50 AM EST Office Visit [facility] Urology [address] 2nd [place] [address] Nati Judge P, ACCREDITATION MANAGER, DNP [address] [place] [address] 01/28/2025 1:30 PM EST Office Visit [facility] [address] [facility] [place] [address] Gracy Aguilar MD [address] [facility] [address] [place] [address] 03/15/2025 1:15 PM EST Office Visit [facility] Advanced Eye Care [address] [place] [address] Renee Graham S, OD [address] [place] [address] 06/01/2025 11:30 AM EDT Clinical Support [facility] Lab [address]nd [place] [address] 06/08/2025 1:40 PM EDT Office Visit [facility] Nephrology, Bone & Mineral Metabolism [address] [facility], [address] [place] [address] Marco Brandt MD [address] [place] [address] documented as of this encounter [...] Adherence On track( 024 1:51 PM EDT) No Lisette Haywood Note: [...] of this encounter Care Teams Director Of Radiology Relationship Specialty Start Date End Date Vandana Urbina MD [address] [place] [address] PCP - General Internal Medicine 05/02/23 [place] [address] Merchandise Collector Architectural Design Professor 05/31/21 Gracy Aguilar MD [address] [facility] [address] [place] [address] Consulting Physician Infectious Diseases 03/26/23 Chuck Kaplan PA [address] [facility] [address] [place] [address] Physician Lean Manufacturing Specialist Infectious Diseases 03/26/23 Maria Elena Lizarraga PA [address] [place] [address] Physician Lean Manufacturing Specialist Urology 03/09/24 documented as of this encounter
--- OUTSIDE RECORDS SUMMARY | 2024-10-16 10:31 | XMS_ITS | Encounter Summary ---
Author Organization Healthcare Address [address] [place] [address] Care Team Providers Care Crop Setting Out Machine Operator Name Role Phone Lashay Maynard Unavailable Unavailable Eduardo Montez Primary Care Provider [phone] Gaby Maciel Unavailable Unavailable Ramya Vaughn LPN Unavailable Unavailable Madelyn Kamara Primary Care Provider + [phone] Pcp, No Primary Care Provider Unavailelizabeth e Gracy Aguilar MD Unavailable [phone] Chuck Kaplan Unavailable [phone] Eduardo Montez Primary Care Provider [phone] Vandana Urbina MD Primary Care Provider [phone] Maria Elena Lizarraga Unavailable [phone] Reason for Visit * Reason Comments Med Refill Encounter Details Date Type Department Care Team (Late st Contact Info) Description 06/12/2022 [facility] [address] [place] [address] Reyna Rincon, DURABILITY TECHNICIAN [address] [facility] [address] [place] [address] Social History Tobacco Use Types Packs/Day Years Used Date Smoking Tobacco: Never Smokeless Tobacco: Never Alcohol Use Standard Drinks/Week Comments Yes 4 (1 standard drink = 0.6 oz pure alcohol) Alcoholic Drinks/day: Occasional alcohol use PHQ-2 Answer Date Recorded Patient Health Questionnaire-2 Score 0 05/30/2022 Sex and Gender Information Value Date Recorded Sex Assigned at Not on file Legal Sex Male 8:00 PM EDT Gender Identity Not on file Sexual Orientation Not on file COVID-19 Exposure Response Date Recorded In the last 10 days, have yo u been in contact with someone who was confirmed or suspected to have Coronavirus/COVID-19? No / Unsure 06/06/2022 1:24 PM EDT documented as of this encounter Functional Status * Calculated C-SSRS Risk Score (Lifetime/Recent) Answer Date of Assessment Author No Risk Indicated 06/14/2022 3:05 PM EDT Gaby Nagy RN * Question Answer Date of Assessment Author 1. Wish to be (Past 1 Month) No 023 3:05 PM EDT Gaby Nagy RN 2. Non-Specific Active Suici lachelle Thoughts (Past 1 Month) No 06/14/2022 3:05 PM EDT Olamide Nagy RN 6. Suicidal Behavior (Lifetime) No 3:05 PM EDT Gaby Nagy RN documented as of this encounter Miscellaneous Notes * Telephone Encounter - Tanesha Spain RN - 06/19/2022 4:27 PM EDT Moved appointment up to 07/13 and sent patient a Newslineshart message with appointment information * Telephone Encounter - Maddie Wright - 06/13/2022 1:38 PM EDT Patient Phone Message Reason for Call: Pt called to try to get a soon appt with Zhen for increased symptoms. There was nothing until July. The nurse line was busy. Could a nurse please give the pt a call? Best contact number and optimal time of day to reach caller: [phone] Note: Please do not reply to this message. Follow-up communication and further actions as a result of this message need to be communicated with the patient directly, if the patient is not active onMyChart. If the patient is active on MyChart, they will receive notification of the communication/outcome via MyChart. * Telephone Encounter - Sudarshan Mckeon - 06/12/2022 1:31 PM EDT Per protocol, 1 medication(s), loperamide, has been approved for 3 day supply with 5 refill(s) to [facility]. documented in this encounter Plan of Treatment Upcoming Encounters Date Type Department Care Team (Late st Contact Info) Description 10/19/2024 1:20 PM EDT Office Visit [facility] Medicine Specialties [address] [place] [address] Clara Bartholomew PA [address] [place] [address] 10/27/2024 10:30 AM EDT Office Visit [facility] [address] [facility] [address] [place] [address] 10/29/2024 9:30 AM EDT Office Visit [facility] Medicine Specialties [address] [place] [address] Nikkie Aguirre PA [address] [place] [address] 11/10/2024 11:00 AM EDT Office Visit [facility] Internal Medicine [address], 3rd [place] [address] Vandana Urbina MD [address] [place] [address] 11/16/2024 10:30 AM EDT Office Visit [facility] Urology [address] [place] [address] Maria Elena Lizarraga PA [address] [place] [address] 11/19/2024 10:00 AM EDT Clinical Support [facility] Lab [address] [place] [address] 11/26/2024 9:50 AM EDT Office Visit [facility] Urology [address] [place] [address] Nati Judge APRN, DNP [address] [place] [address] 12/08/2024 8:30 AM EDT Procedure Visit [facility] Orthopaedic Surgery & Sports Medicine [address], [address] [place] [address] Jonathan Armando MD [address] [place] [address] 12/17/2024 3:00 PM EST Office Visit [facility] General Surgery [address] [place] [address] Germain Botello MD [address] [place] [address] 01/11/2025 9:30 AM EST Clinical Support [facility] Lab [address] [place] [address] 01/18/2025 10:50 AM EST Office Visit [facility] Urology [address] [place] [address] Nati Judge APRN, DNP [address] [place] [address] 01/28/2025 1:30 PM EST Office Visit [facility] [address] [facility] [place] [place] [address] Gracy Aguilar MD [address] [place] [address] 03/15/2025 1:15 PM EST Office Visit [facility] Eye Care [address] [place] [address] Renee Graham S, OD [address] [place] [address] 06/01/2025 11:30 AM EDT Clinical Support [place] [facility] [address] [place] [address] 06/08/2025 1:40 PM EDT Office Visit [facility] Nephrology, Bone & Mineral Metabolism [address] [facility], [address] [place] [address] Marco Brandt MD [address] [place] [address] documented as of this encounter [...] has been complete d for the patient 06/04/2022 9:49 AM EDT A Body Mass Index follow-up plan has been documented for the patient 06/06/2022 1:54 PM EDT documented as of this encounter Care Teams Crop Setting Out Machine Operator Relationship Specialty Start Date End Date Eduardo Montez PA [address] [place] [address] PCP - General Internal Medicine 06/26/21 08/16/22 Madelyn Kamara PA [address] [place] [address] PCP - General Internal Medicine 08/17/22 12/26/[address] [place] [address] PCP - General Family Medicine 01/08/23 04/24/23 Eduardo Montez PA [address] [place] [address] PCP - General Internal Medicine 04/25/23 05/01/23 Vandana Urbina MD [address] [place] [address] PCP - General Internal Medicine 05/02/23 [place] [address] Belt Builder Helper License Registration Examiner 05/31/21 [place] [address] Eldercare Navigator 06/15/22 07/15/22 Ramya Vaughn LPN VALUE-[place]ED [place] [address] TCM Nurse 06/29/22 07/27/22 Gracy Aguilar MD [address] [place] [address] [address] [place] [address] Consulting Physician Infectious Diseases 03/26/23 Chuck Kaplan PA [address] [place] [address] [address] [place] [address] Physician Animal Care Attendant Infectious Diseases 03/26/23 Maria Elena Lizarraga PA [address] [facility] [address] [place] [address] Physician Animal Care Attendant Urology 03/09/24 documented as of this encounter
--- OUTSIDE RECORDS SUMMARY | 2024-10-16 10:31 | XMS_ITS | Encounter Summary ---
Author Organization Healthcare Address [address] [place] [address] Care Team Providers Care Oceanographic Meteorologist Name Role Phone Lashay Maynard Unavailable Unavailable Eduardo Montez Primary Care Provider [phone] Gaby Maciel Unavailable Unavailable Ramya Vaughn LPN Unavailable Unavailable Madelyn Kamara Primary Care Provider + [phone] Pcp, No Primary Care Provider Unavailelizabeth e Gracy Aguilar MD Unavailable [phone] Chuck Kaplan Unavailable [phone] Eduardo Montez Primary Care Provider Vandana Urbina MD Primary Care Provider [phone] Maria Elena Lizarraga Unavailable [phone] Reason for Visit * Reason Comments Med Refill Encounter Details Date Type Department Care Team (Late st Contact Info) Description 11/24/2021 [facility]ill [facility] Medicine Specialties [address] [place] [address] Reyna Rincon, ODD JOB LABORER [address] [facility] [address] [place] [address] Social History Tobacco Use Types Packs/Day Years Used Date Smoking Tobacco: Never Smokeless Tobacco: Never Alcohol Use Standard Drinks/Week Comments Yes 4 (1 standard drink = 0.6 oz pure alcohol) Alcoholic Drinks/day: Occasional alcohol use PHQ-2 Answer Date Recorded Patient Health Questionnaire-2 Score 0 11/01/2021 Sex and Gender Information Value Date Recorded Sex Assigned at Not on file Legal Sex Male 8:00 PM EDT Gender Identity Not on file Sexual Orientation Not on file COVID-19 Exposure Response Date Recorded In the last 10 days, have yo u been in contact with someone who was confirmed or suspected to have Coronavirus/COVID-19? No / Unsure 11/01/2021 10:09 AM EDT documented as of this encounter Miscellaneous Notes * Telephone Encounter - Sudarshan Mckeon - 11/24/2021 9:25 AM EDT Per protocol, 1 medication(s), vitamin A , has been approved for 30 day supply with 1 refill(s). The medication refill request(s) has been sent to [facility] pharmacy. documented in this encounter Plan of Treatment Upcoming Encounters Date Type Department Care Team (Late st Contact Info) Description 10/19/2024 1:20 PM EDT Office Visit [facility] Medicine Specialties [address] [place] [address] Clara Bartholomew PA [address] [place] [address] 10/27/2024 10:30 AM EDT Office Visit [facility] [address] [facility] [place] [address] [place] [address] 10/29/2024 9:30 AM EDT Office Visit [facility] Medicine Specialties [address] [place] [address] Nikkie Aguirre PA [address] [place] [address] 11/10/2024 11:00 AM EDT Office Visit [facility] Internal Medicine [address] 3rd [place] [address] Vandana Urbina MD [address] [place] [address] 11/16/2024 10:30 AM EDT Office Visit [facility] Urology [address] [place] [address] Maria Elena Lizarraga PA [address] [place] [address] 11/19/2024 10:00 AM EDT Clinical Support [facility] Lab [address] [place] [address] 11/26/2024 9:50 AM EDT Office Visit [facility] Urology [address] [place] [address] Nati Judge, ODD JOB LABORER, VALERIO [address] [place] [address] 12/08/2024 8:30 AM EDT Procedure Visit [facility] Orthopaedic Surgery & Sports Medicine [address] [facility] [place] [address] Jonathan Armando MD [address] [facility] [address] [place] [address] 12/17/2024 3:00 PM EST Office Visit [facility] General Surgery [address] [place] [address] Germain Botello MD [address] [place] [address] 01/11/2025 9:30 AM EST Clinical Support [facility] [address] [place] [address] 01/18/2025 10:50 AM EST Office Visit [facility] Urology [address] [place] [address] Nati Judge P, ODD JOB LABORER, DNP [address] [place] [address] 01/28/2025 1:30 PM EST Office Visit [facility] [address] [facility] [place] [address] Gracy Aguilar MD [address] [facility] [address] [place] [address] 03/15/2025 1:15 PM EST Office Visit [facility] [address] [place] [address] Renee Graham S, OD [address] [place] [address] 06/01/2025 11:30 AM EDT Clinical Support [facility] [address] [place] [address] 06/08/2025 1:40 PM EDT Office Visit [facility] Nephrology, Bone & Mineral Metabolism [address] [facility], [address] [place] [address] Marco Brandt MD [address] [place] [address] documented as of this encounter [...] has been complete d for the patient 11/01/2021 10:21 AM EDT documented as of this encounter Care Teams Oceanographic Meteorologist Relationship Specialty Start Date End Date Eduardo Montez PA [address] [place] [address] PCP - General Internal Medicine 06/26/21 08/16/22 Madelyn Kamara PA [address] [place] [address] PCP - General Internal Medicine 08/17/22 12/26/[place] [address] PCP - General Family Medicine 01/08/23 04/24/23 Eduardo Montez PA [address] [place] [address] PCP - General Internal Medicine 04/25/23 05/01/23 Vandana Urbina MD [address] [place] [address] PCP - General Internal Medicine 05/02/23 [place] [address] Industrial Staff Nurse Medical Case Manager 05/31/21 [place] [address] [employer]ercare Navigator 06/15/22 07/15/22 Ramya Vaughn LPN VALUE-BASED [place] [address] TCM Nurse 06/29/22 07/27/22 Gracy Aguilar MD [address] [place] [address] [address] [place] [address] Consulting Physician Infectious Diseases 03/26/23 Chuck Kaplan PA [address] [place] [address] [address] [place] [address] Physician Wet Machine Cutter Infectious Diseases 03/26/23 Maria Elena Lizarraga PA [address] [place] [address] Physician Wet Machine Cutter Urology 03/09/24 documented as of this encounter
--- OUTSIDE RECORDS SUMMARY | 2024-10-16 10:31 | XMS_ITS ---
Care Plan Created on: October 16, 2024 Mauricio Barahona : 1955 Sex: Male Author Organization [facility] Address [address] [place] [address] Care Team Providers Care Cryogenics Repairer Name Role Phone Lashay Maynard Unavailable Unavailable Gracy Aguilar MD Unavailable [phone] Chuck Kaplan Unavailable [phone] Vandana Urbina MD Primary Care Provider [phone] Maria Elena Lizarraga Unavailable [phone] Active Problems Problem Noted Date Diagnosed Date [...] significant weight reduction. Have placed referral to [facility] weight loss clinic for consultation. Assessment [...] Vaccine 12y+, Félix Protein, PF, Harvinder-Sucrose 11/16/2022 spigit COVID-19 Bivalent Booster (Elliott Cap) 12+ years [...] and virologic response ART. Follows with Dr. Agiular Assessment & Plan (08/10/2022 11:55 PM EDT): [...] Patient has hsil and follows with dr francois. He does nt have a follow up and we will get our drying room operator to reschedule that. He could take [...] 2:49 PM EST): Recent follow-up with Dr. Francois showed low grade squamous intraepithelial lesion but [...] for reflux Discussed pros and cons of terminal clerk PPI use Patient will trial period without [...] continuing daily infusion change with help of pilot plant operator helper, [place]. Continuing PICC change every week at [...] (06/21/2022): Added automatically from request for surgery [id number] COVID-19 06/10/2021 12/20/2021 Assessment & Plan (06/10/2021 [...] (11/24/2020): Added automatically from request for surgery [id number] Assessment & Plan (04/05/2023 8:52 AM EST): [...] We will have him meet with our case management social worker to discuss cost. I assured him that sometimes getting further testing is all part of the work up and to continue to work with ent. Rhinitis 03/21/2016 06/04/2021 Routine screening for STI (s exually transmitted infection) 03/07/2015 09/27/2020 Arthritis of right knee 12/20/201408/11 Abnormal weight gain 06/22/2014 021 Prostate cancer screening 02/16/2014 Human immunodeficiency virus (HIV) disease 10/08/2012 01/12/2021 Additional Health Concerns Active Problems Noted Date Diagnosed Date Treatment Adherence 09/02/2024 Goals Goal Patient Goal Type Associated Problems [...] year. He reports having no knee pain. Interventions Care Plan Interventions Intervention Entry Date Outcome Obtain knee injection x 3 to improve knee pain 03/09/2021 Attend appts with ortho as scheduled 03/09/2021 Remind patient to contact [facility] in the event of barriers to adherence. 03/09/2021 Submit recert paperwork on pt's behalf/as required. 03/09/2021 Remind patient to provide supporting documentation (proof of income, insurance, residency). 03/09/2021 Contact patient with reminders about recert dates/paperwork. 03/09/2021 Obtain labs as ordered 03/09/2021 Take ART as prescribed 03/09/2021 Attend ID appts with Dr. Aguilar as scheduled 03/09/2021 Related Goals and Interventions Goal Associated Intervent ions Patient to remain active in HIV care Obt ain labs as ordered; Take ART as prescribed; Attend ID appts with Dr. Aguilar as scheduled Patient to remain active on part B services/RW shama-eligible Remind patient to contact [facility] in the drea nt of barriers to adherence.; Submit recert paperwork on pt's behalf/as required.; Remind patient to provide supporting documentation (proof of income, insurance, residency).; Contact patient with reminders about recert dates/paperwork. Improve Knee Pain Obtain knee injectio n x 3 to improve knee pain; Attend appts with ortho as scheduled
--- OUTSIDE RECORDS SUMMARY | 2024-10-16 10:31 | XMS_ITS | Encounter Summary ---
Author Organization [facility] Address [address] [place] [address] Care Team Providers Care Outreach Consultant Name Role Phone Lashay Maynard Unavailable Unavailable Madelyn Kamara Primary Care Provider [phone] Pcp, No Primary Care Provider Unavailelizabeth e Gracy Aguilar MD Unavailable [phone] Chuck Kaplan Unavailable [phone] Eduardo Montez Primary Care Provider Vandana Urbina MD Primary Care Provider [phone] Maria Elena Lizarraga Unavailable [phone] Reason for Visit * Reason Comments Med Refill Encounter Details Date Type Department Care Team (Late st Contact Info) Description 09/10/2022 Refill [facility] [address] [place] [address] Maria Elena Lizarraga PA [address] [place] [address] Social History Tobacco Use Types Packs/Day Years Used Date Smoking Tobacco: Never Passive Smoke Exposure: Never Smokeless Tobacco: Never Alcohol Use Standard Drinks/Week Comments Not Currently 3 (1 standard drink = 0.6 oz pur e alcohol) quit in May 2022 PHQ-2 Answer Date Recorded Patient Health Questionnaire-2 Score 0 08/08/2022 Hunger Vital Sign Answer Date Recorded Within the past 12 months, y ou worried that your food would run out before you got the money to buy more. Never true 06/19/19 23 Within the past 12 months, t he food you bought just didn't last and you didn't have money to get more. Never true 06/18/2022 PRAPARE - Transportation Answer Date Re corded In the past 12 months, has l ack of transportation kept you from medical appointments or from getting medications? No 09/2022 In the past 12 months, has l ack of transportation kept you from meetings, work, or from getting things needed for daily living? No 06/18/2022 CAGE ASSESSMENT Answer Date Recorded Cage unable [...] drink first t mina in the morning (EYE-A P SUPERVISOR) to steady your nerves or to get rid of a hangover? 0 06/20/2022 CAGE Questionnaire Score 0 023 Sex and Gender Information Value Date Recorded [...] encounter Miscellaneous Notes * Telephone Encounter - Iris Cox, PharmD - 09/10/2022 12:35 PM EDT Per protocol, 1 medication(s), sildenafil, has been approved for 30 day supply with 5 refill(s) to [facility] pharmacy. Enough refills until appointment on 03/04/23 with Klaudia Lizarraga. Please request additional refills atappointment. documented in this encounter Plan of Treatment Upcoming Encounters Date Type Department Care Team (Late st Contact Info) Description 10/19/2024 1:20 PM EDT Office Visit [facility] Medicine Specialties [address] [place] [address] Clara Bartholomew PA [address] [place] [address] 10/27/2024 10:30 AM EDT Office Visit [facility] [address] [facility] [address] [place] [address] 10/29/2024 9:30 AM EDT Office Visit [facility] Medicine Specialties [address] [place] [address] Nikkie Aguirre PA [address] [place] [address] 11/10/2024 11:00 AM EDT Office Visit [facility] Internal Medicine [address] [place] [address] Vandana Urbina MD [address] [place] [address] 11/16/2024 10:30 AM EDT Office Visit [facility] Urology [address] [place] [address] Maria Elena Lizarraga PA [address] [place] [address] 11/19/2024 10:00 AM EDT Clinical Support [facility] Lab [address] [place] [address] 11/26/2024 9:50 AM EDT Office Visit [facility] Urology [address] [place] [address] Nati Judge, TRANSFUSION NURSE, DNP [address] [place] [address] 12/08/2024 8:30 AM EDT Procedure Visit [facility] Orthopaedic Surgery & Sports Medicine [address], [address] [place] [address] Jonathan Armando MD [address] [place] [address] 12/17/2024 3:00 PM EST Office Visit [facility] General Surgery [address] [place] [address] Germain Botello MD [address] [place] [address] 01/11/2025 9:30 AM EST Clinical Support [facility] Lab [address] [place] [address] 01/18/2025 10:50 AM EST Office Visit [facility] Urology [address] [place] [address] Nati Judge P, TRANSFUSION NURSE, DNP [address] [place] [address] 01/28/2025 1:30 PM EST Office Visit [facility] [address] [facility] [place] [address] Gracy Aguilar MD [address] [facility] [address] [place] [address] 03/15/2025 1:15 PM EST Office Visit [facility] Eye Care [address] [place] [address] Renee Graham S, OD [address] [place] [address] 06/01/2025 11:30 AM EDT Clinical Support [facility] Lab [address] [place] [address] 06/08/2025 1:40 PM EDT Office Visit [facility] Nephrology, Bone & Mineral Metabolism [address], [address] [place] [address] Marco Brandt MD [address] [place] [address] documented as of this encounter Goals Goal Patient Goal Type Associated Problems Recent Progress Patient-Stated? Author Patient to remain active in HIV care Care Plan Treatment Adherence On track( 024 1:48 PM EDT) Lisette Tom Patient to remain active on part B services/RW shama-eligible Care Plan Treatment Adherence On track( 024 1:48 PM EDT) Flori Haywood Lisette W Improve Knee Pain Care Plan Treatment Adherence On track( 024 1:51 PM EDT) Kellen Tomdarryl Raman Note: Patient continues to take excellent care of his knee pain. He receives Gel Knee injections 2x per year. He reports having no knee pain. documented as of this encounter Visit Diagnoses Not on filedocumented in this encounter Additional Health Concerns Active Problems Noted Date Diagnosed Date Treatment Adherence 09/02/2024 Infection Onset Date Last Indicated Resolved Time Rhinovirus 06/23/2022 06/23/2022 05/21/2023 9:31 AM EDT Assessment Noted Time PHQ-9 Depression Total Score: 9 12/23/19 3:25 PM EST A fall risk assessment has been complete d for the patient 08/08/2022 12:37 PM EDT A Body Mass Index follow-up plan has been documented for the patient 08/30/2022 8:27 PM EDT documented as of this encounter Care Teams Outreach Consultant Relationship Specialty Start Date End Date Madelyn Kamara PA [address] [place] [address] PCP - General Internal Medicine 08/17/22 12/26/22 Pcp, Flori [address] [place] [address] PCP - General Family Medicine 01/08/23 04/24/23 Eduardo Montez PA [address] [place] [address] PCP - General Internal Medicine 04/25/23 05/01/23 Vandana Urbina MD [address] [place] [address] PCP - General Internal Medicine 05/02/23 [place] [address] Marine Diesel Mechanic Tire Finisher 05/31/21 Gracy Aguilar MD [facility] [address] [place] [address] Consulting Physician Infectious Diseases 03/26/23 Chcuk Kaplan PA [address] [place] [address] Physician Laborer Prestressed Concrete Infectious Diseases 03/26/23 Maria Elena Lizarraga PA [id number] [place] [address] Physician Laborer Prestressed Concrete Urology 03/09/24 documented as of this encounter
--- OUTSIDE RECORDS SUMMARY | 2024-10-16 10:31 | XMS_ITS | Encounter Summary ---
Author Organization [facility] Address [address] [place] [address] Care Team Providers Care Heavy Mobile Equipment Repairer Name Role Phone Lashay Maynard Unavailable Unavailable Gracy Aguilar MD Unavailable [phone] Chuck Kaplan Unavailable [phone] Vandana Urbina MD Primary Care Provider [phone] Maria Elena Lizarraga Unavailable [phone] Reason for Visit * Reason Onset Date Comments Med Refill 03/11/2024 Encounter Details Date Type Department Care Team (Late st Contact Info) Description 03/11/[address] [address] Gracy Aguilar MD [address] [place] [address] [address] [place] [address] Social History Tobacco Use Types Packs/Day Years Used Date Smoking Tobacco: Never Passive Smoke Exposure: Never Smokeless Tobacco: Never Alcohol Use Standard Drinks/Week Comments Yes 2 (1 standard drink = 0.6 oz pur e alcohol) occasional Humiliation, Afraid, Rape, and Kick questionnair e Answer Date Recorded Within the last year, have y ou been afraid of your partner or ex-partner? No 11/05/2023 Within the last year, have y ou been humiliated or emotionally abused in other ways by your partner or ex-partner? No Within the last year, have y ou been kicked, hit, slapped, or otherwise physically hurt by your partner or ex-partner? No 11/05/2023 Within the last year, have y ou been raped or forced to have any kind of sexual activity by your partner or ex-partner? No 11/05/2023 Social Connection and Isolation Panel Answer Date Recorded In a typical week, how many times do you talk on the phone with family, friends, or neighbors? More than three times a week 05/02/2023 How often do you get togethe r with friends or relatives? More than three times a week 05/02/2023 How often do you attend chur or sabianism services? Never 05/02/2023 Do you belong to any clubs o r organizations such as jehovah's witness groups, unions, fraternal or athletic groups, or [...] Date Recorded Patient Health Questionnaire-2 Score 0 03/09/2024 [facility] - Occupational Stress Questionnaire Answer [...] the money to buy more. Never true 11/05/19 Within the past 12 months, t he food you bought just didn't last and you didn't have money to get more. Never true 11/05/2023 PRAPARE - Transportation Answer Date Re corded In the past 12 months, has l ack of transportation kept you from medical appointments or from getting medications? No 10/13 In the past 12 months, has l ack of transportation kept you from meetings, work, or from getting things needed for daily living? No 11/05/2023 Housing Stability Vital Sign Answer Solomon e [...] in a mcfp (including now)? No 11/05/2023 Safety and Environment Answer Date Helder rded [...] drink first t mina in the morning (EYE-DIVISION ROAD SUPERVISOR) to steady your nerves or to get rid of a hangover? 0 06/20/2022 CAGE Questionnaire Score 0 023 Utilities Answer Date Recorded In the past 12 months has th e [employer], gas, oil, or water company threatened to shut off services in your home? No 11/05/2023 PHQ-2A Answer Date Recorded Patient Health Questionnaire-2 [...] Description 10/19/2024 1:20 PM EDT Office Visit [facility] Medicine Specialties [address] [place] [address] Clara Bartholomew PA [address] [place] [address] 10/27/2024 10:30 AM EDT Office Visit [facility] [address] [facility] [address] [place] [address] 10/29/2024 9:30 AM EDT Office Visit [facility] Medicine Specialties [address] [place] [address] Nikkie Aguirre, PA [address] [place] [address] 11/10/2024 11:00 AM EDT Office Visit [facility] Internal Medicine [address] [place] [address] Vandana Urbina MD [address] [place] [address] 11/16/2024 10:30 AM EDT Office Visit [facility] Urology [address] [place] [address] Maria Elena Lizarraga PA [address] [place] [address] 11/19/2024 10:00 AM EDT Clinical Support [facility] Lab [address] [place] [address] 11/26/2024 9:50 AM EDT Office Visit [facility] Urology [address] [place] [address] Nati Judge, APPLICATION PACKAGING CONSULTANT, DNP [address] [place] [address] 12/08/2024 8:30 AM EDT Procedure Visit [facility] Orthopaedic Surgery & Sports Medicine [address] , [address] [place] [address] Jonathan Armando MD [address] [facility] [address] [place] [address] 12/17/2024 3:00 PM EST Office Visit [facility] General Surgery [address] [place] [address] Germain Botello MD [address] [place] [address] 01/11/2025 9:30 AM EST Clinical Support [facility] Lab [address] [place] [address] 01/18/2025 10:50 AM EST Office Visit [facility] Urology [address] [place] [address] Nati Judge, APPLICATION PACKAGING CONSULTANT, DNP [address] [place] [address] 01/28/2025 1:30 PM EST Office Visit [facility] [address] [facility] [place] [address] Gracy Aguilar MD [address] [facility] [address] [place] [address] 03/15/2025 1:15 PM EST Office [facility] Eye Care [address] [place] [address] Renee Graham S, OD [address] [place] [address] 06/01/2025 11:30 AM EDT Clinical Support [facility] Lab [address] [place] [address] 06/08/2025 1:40 PM EDT Office Visit [facility] Nephrology, Bone & Mineral Metabolism [address] [facility] [place] [address] Marco Brandt MD [address] [place] [address] documented as of this encounter Goals Goal [...] has been complete d for the patient 03/09/2024 2:29 PM EST A Body Mass Index follow-up plan has been documented for the patient 03/12/2024 5:30 PM EST documented as of this encounter Care Teams Heavy Mobile Equipment Repairer Relationship Specialty Start Date End Date Vandana Urbina MD [address] [place] [address] PCP - General Internal Medicine 05/02/23 [place] [address] Reagent Tender Business Machine Operator 05/31/21 Gracy Aguilar MD [address] [place] [address] [address] [place] [address] Consulting Physician Infectious Diseases 03/26/23 Chuck Kaplan PA [address] [place] [address] [address] [place] [address] Physician Project Control Officer Infectious Diseases 03/26/23 Maria Elena Lizarraga PA [address] [facility] [address] [place] [address] Physician Project Control Officer Urology 03/09/24 documented as of this encounter
--- NOTE | 2024-10-16 10:34 | XR_ITS ---
FINAL REPORT CLINICAL HISTORY: Left sided chest pain FINDINGS: A portable view of the chest was obtained. Cardiac and mediastinal silhouettes are within normal limits. The lungs are clear. There is no pleural effusion or pneumothorax. IMPRESSION: No acute process on this portable exam. Reviewed, Interpreted and Dictated by Gala Miramontes MD Transcribed by Sulema Jc Authenticated and . [facility]
--- NOTE | 2024-10-16 10:35 | [facility].EDCP ---
Discharge Plan Disposition Patient Disposition: Home, Self-Care Condition: Good Prescriptions Prescriptions: No Action amlodipine-valsartan 10-320 mg tablet 1 tab PO DAILY hydroxyzine pamoate 25 mg capsule 25 mg PO HS tamsulosin 0.4 mg capsule PO omeprazole 20 mg capsule,delayed release(DR/EC) 20 mg PO DAILY atorvastatin 10 mg tablet 10 mg PO DAILY Creon 36,000-114,000- 180,000 unit capsule,delayed release(DR/EC) PO meloxicam 15 mg tablet 15 mg PO DAILY meclizine 12.5 mg tablet 12.5 mg PO TID PRN (Reason: dizziness) Qty: 20 0RF fluticasone propionate [Allergy Relief (fluticasone)] 50 mcg/actuation spray,suspension 1 spray intranasal DAILY Qty: 16 2RF Rx Instructions: administer into each nostril colchicine [Colcrys] 0.6 mg tablet 0.6 mg PO DIRECTED Qty: 3 0RF Rx Instructions: Take 1.2mg (2 Tablets) now then wait one hour and take 0.6mg (1 tab) Referrals Follow up/Referrals: Vandana Urbina MD [Primary Care Provider, Medical] - See instructions Activity Restrictions/Add. Instructions Additional Instructions/Restrictions: Please follow up with your physicians this week at [facility] as discussed. IF your pain returns, persists, or becomes worrisome please return also. Clinical Impressions Clinical Impression: Chest pain Qualifiers: Chest pain type: unspecified Qualified Code(s): R07.9 - Chest pain, unspecified Print Language Print Language: Bulgarian Discharge ED Provider: Dalton Cristobal General Chief Complaint: Chest Pain Stated Complaint: shooting pain in Left ribs Time Seen by Provider: 10/16/24 10:15 Mode of Arrival: Ambulatory Source of Information: Patient Description of Symptoms (Recalled from ER Triage Doc. by RN): Patient presents to ED from home with c/o sharp left rib pain x2 days. Patient states pain comes and goes but does not notice anything in particular that precipitates it. Reports pain improves when he applies pressure to the area. Patient denies injury and denies any additional symptoms. History of Present Illness HPI narrative: This is a 69-year-old male patient, with past medical history of HIV and hepatitis C, who is presenting to the emergency department today for evaluation of left-sided chest wall pain. Patient states that this pain began on Saturday and was very sharp when it began and was relieved by applying pressure to his left chest wall. He states that this pain resolved and has intermittently occurred over the last 2 days. At the current time of presentation he is completely pain-free. He states that his pain is nonexertional in nature and does not radiate. He is not experiencing any abdominal pain. No GI symptoms. No urinary symptoms. He is not experiencing cough, production of phlegm, or fevers. The pain is not particularly worse with movement of the arm. He is not currently on testosterone therapy, no recent surgeries, no hemoptysis, he has never been diagnosed with a PE or DVT in the past, and he has never been diagnosed with cancer. Related Data Home Medications ?Medication ?Instructions ?Recorded ?Confirmed amlodipine 10 mg-valsartan 320 mg 1 tab PO DAILY 01/17/23 01/17/23 tablet atorvastatin 10 mg tablet 10 mg PO DAILY 01/17/23 01/17/23 hydroxyzine pamoate 25 mg capsule 25 mg PO HS 01/17/23 01/17/23 fanwbx-yaylhqoe-romtezl cap PO 01/17/23 01/17/23 36,000-114,000-180,000 unit capsule,delay rel (Creon) meloxicam 15 mg tablet 15 mg PO DAILY 01/17/23 01/17/23 omeprazole 20 mg capsule,delayed 20 mg PO DAILY 01/17/23 01/17/23 release tamsulosin 0.4 mg capsule mg PO 01/17/23 01/17/23 Previous Rx's ?Medication ?Instructions ?Recorded colchicine 0.6 mg tablet (Colcrys) 0.6 mg PO DIRECTED #3 tabs 06/05/22 fluticasone propionate 50 1 spray intranasal DAILY #16 grams 01/17/23 mcg/actuation nasal spray,suspension (Allergy Relief (fluticasone)) meclizine 12.5 mg tablet 12.5 mg PO TID PRN dizziness #20 01/17/23 tabs Allergies Allergy/AdvReac Type Severity Reaction Status Date / Time Sulfa (Sulfonamide Allergy Verified 01/17/23 10:18 Antibiotics) [facility] Disclaimer: The information contained in this section may have been updated after the patient was seen, as this information can be updated by other users. Medical History (Updated 10/16/24 @ 12:04 by Dalton Cristobal DO) Bone infection Infection of left hand Pseudogout Hypertension Liver disease Surgical History No significant past surgical history Family History Other No significant family history Social History Smoking Status: Never smoker alcohol intake: never current occupational status: unemployed Travel in the last 8 weeks?: None Have you lived/traveled outside [place] in past 30 days?: No Contact w/someone who lives/traveled outside US past 30 days?: No Exposure to someone with infectious disease in past 14 days?: No Do you have a fever (greater than 100.4 F or 38 C)?: No Have you tested positive for COVID-19?: No Exposed to someone with COVID-19 in past 14 days?: No Do you have a sore throat?: No Do you have a cough?: No Do you have any weakness?: No Do you have any diarrhea?: No Are you experiencing any unusual bleeding?: No Do you have any muscle aches/pain?: No Do you have any abdominal pain?: No Are you experiencing loss of taste or smell?: No Other Medical History Have you received the Pneumonia Vaccine: No ROS Obtained: Yes Systems reviewed as appropriate & no additional complaints except as documented Physical Exam General General appearance: other (See MDM) Respiratory Respiratory exam: Present other (See MDM) Cardiovascular Cardiovascular exam: Present other (See MDM) Neurological Exam Neurological exam: Present other (See MDM) HEART Score HEART Score HEART Score assessment performed?: Yes History (anamnesis): Slightly suspicious ECG: Non-specific disturbance Age: >65 years Risk factors: 1-2 risk factors Troponin: </= normal limit HEART Score: 4 Procedures Miscellaneous Procedure Procedure Performed: Limited cardiac ultrasound note Indication: Left-sided rib pain Identified cardiac views: [Cardiac parasternal long axis] [Cardiac parasternal short axis] [Cardiac apical four-chamber] [Cardiac subxiphoid] Findings: Cardiac activity: Present Gross wall motion: Normal Pericardial effusion: Absent Right heart strain: Absent Impression: Normal limited cardiac echo Images were saved to permanent archive This study was technically adequate CPT: 44072 This study was performed by me and I personally interpreted all images/videos. Based on my clinical judgment these images were adequate and did not necessitate further imaging. Critical Care Critical Care Time Critical Care Time: No Medical Decision Making Medical Records Medical records reviewed: Yes I reviewed the patient's medical records. Jesús Inquiry Pt receiving controlled substance: No Jesús was queried for this patient: No Vital Signs Vital Signs: 10/16/24 10:21 10/16/24 10:23 10/16/24 10:33 Temperature 98.5 F Temperature Source Oral Pulse Rate 81 71 Pulse Rate [Right] 78 Respiratory Rate 19 19 17 Blood Pressure 149/93 H Blood Pressure [Right Arm] 149/93 H Blood Pressure Mean 111 Blood Pressure Mean [Right Arm] 111 Blood Pressure Source [Right Arm] Automatic Cuff Blood Pressure Position [Right Arm] Sitting 02 Sat by Pulse Oximetry 99 98 100 Oxygen Delivery Method Room Air Room Air Room Air 10/16/24 11:01 10/16/24 11:30 Temperature Temperature Source Pulse Rate 64 69 Pulse Rate [Right] Respiratory Rate 18 16 Blood Pressure 118/72 123/80 Blood Pressure [Right Arm] Blood Pressure Mean 87 95 Blood Pressure Mean [Right Arm] Blood Pressure Source [Right Arm] Blood Pressure Position [Right Arm] 02 Sat by Pulse Oximetry 97 100 Oxygen Delivery Method Room Air Room Air Lab Data Labs: Lab Results 10/16/24 10:28: WBC 6.1, RBC 4.60, Hgb 14.8, Hct 41.5 L, MCV 90.2, MCH 32.2 H, MCHC 35.7 H, RDW 15.6, Plt Count 84 L, MPV 10.6 H, Neut % (Auto) 48.6, Lymph % (Auto) 40.9, [place] % (Auto) 6.2, Eos % (Auto) 2.5, Baso % (Auto) 0.7, Neut # (Auto) 3.0, Lymph # (Auto) 2.5, [place] # (Auto) 0.4, Eos # (Auto) 0.2, Baso # (Auto) 0.0, PT 11.9, INR 1.08, Sodium 142, Potassium 4.1, Chloride 109 H, Carbon Dioxide 24, Anion Gap 13.1, BUN 17, Creatinine 1.30 H, Estimated Creat Clear 63, Estimated GFR 55 L, Est GFR ( Amer) 66, Glucose 167 H, Calcium 9.6, Total Bilirubin 1.2, AST 65 H, ALT 65, Alkaline Phosphatase 91, Troponin I < 0.01, Total Protein 8.2, Albumin 4.5, Globulin 3.7 H, Albumin/Globulin Ratio 1.2, Lipase 148 10/16/24 10:28 10/16/24 10:28 Response Orders (Tests/Meds): ED MEDICATIONS Discontinued Medications Generic Name Dose Route Start Last Admin Trade Name Freq PRN Reason Stop Dose Admin Aspirin 325 mg 10/16/24 10:36 10/16/24 10:41 Aspirin 325mg Tablet PO 10/16/24 10:37 325 mg ONCE ONE Administration ORDERS Category Date Time Status CXR --portable [XR chest portable] Stat Exams 10/16/24 10:34 Taken POCUS Point of Care (ER Only) Stat Exams 10/16/24 10:54 Ordered CBC w/Auto Diff [Complete Blood Count Auto Diff] Stat Lab 10/16/24 10:28 Completed CMP [Comprehensive Metabolic Panel] Stat Lab 10/16/24 10:28 Completed HIV Combo Stat Lab 10/16/24 10:28 Received Hepatitis C Ab Qual. W/ RFX Stat Lab 10/16/24 10:28 Received Lipase Stat Lab 10/16/24 10:28 Completed PT INR [Prothrombin Time INR] Stat Lab 10/16/24 10:28 Completed Troponin I Q3H Lab 10/16/24 13:45 Ordered Troponin I Q3H Lab 10/16/24 16:45 Ordered Troponin I Stat Lab 10/16/24 10:28 Completed ECG Data Tracing #1: Attestation: I reviewed this ECG and interpreted as documented below: ECG Narrative: EKG personally interpreted by me demonstrates normal sinus rhythm with a rate of 71 bpm, normal axis, no IL prolongation, narrow QRS, no QTc prolongation. No ST elevation or depression. S waves appreciated in leads III and aVF. MDM Narrative Medical Decision Narrative: In summary, this is a 69-year-old male patient with left-sided chest wall pain that has been intermittent for the last 2 days and is relieved by applying manual pressure to his left chest wall. The patient does not have any associated symptoms of the respiratory tract, GI tract, or urinary tract. He does not have any risk factors for pulmonary embolism as outlined in the HPI. Comorbidities do include history of HIV and hepatitis C with a self-reported history of cirrhosis. I cannot confirm this with any collateral documentation as he is new to our hospital system. The patient does tell me that he has not required any paracentesis in the past. On initial evaluation of the patient they were resting comfortably in no acute distress and nontoxic in appearance. They are hemodynamically stable, saturating well room air, and are neurologically intact. On physical examination the patient is heart and lungs are clear to auscultation bilaterally. He has no abdominal tenderness palpation. He is not point tender along the rib cage. He has no lower extremity erythema or edema. His physical exam is essentially unremarkable. Differential diagnosis includes chest wall pain, musculoskeletal strain, ACS/WV, pancreatitis, pleurisy, among others. Pneumonia felt to be less likely in the absence of respiratory symptoms. Rib fracture felt to be less likely in the setting of no traumatic injuries. Patient is Wells score is low and given that he is not experiencing any shortness of breath and pain is intermittent I do not feel that this is a likely diagnosis. EKG was personally interpreted above. Workup was initiated with hematologic labs as well as a chest x-ray. We have administered 325 mg of aspirin to the patient given that he is experiencing this intermittent chest pain. I did perform a bedside POCUS assessment of the patient's abdomen and there is no ascites present. Therefore do not feel that spontaneous bacterial peritonitis is contributing to his pain. Bedside echo shows no pericardial effusion and normal heart function. No evidence of right heart strain. Labs personally interpreted by me demonstrate no actionable abnormality. Initial troponin is less than 0.01. Given this patient's pain has been going on since Saturday we will not obtain a delta troponin. Chest x-ray was personally turbid by me and demonstrates no lobar consolidation or pleural effusion. The patient has remained asymptomatic throughout the duration of his stay in the emergency department. I have informed him of the results of his test and he is ultimately reassured. He states that he has follow-up with his physician care team through [facility] later this week. I have instructed him to take [id number] pain control medications at home with his pain returns. I have also given him return precautions in the event that this pain becomes persistent or worrisome. At this time all questions have been answered and all parties are agreeable with the decision to discharge home.
[2024-10-16 10:40] LABS: Hematocrit 41.5 % (42.0-52.0); Hemoglobin 14.8 g/dL (14.1-18.0); Immature Granulocytes % 1.1 %; Mean Corpuscular HGB Conc 35.7 g/dL (31.8-35.4); Mean Corpuscular Hemoglobin 32.2 pg (27.0-31.2); Mean Corpuscular Volume 90.2 fl (80-94); Nucleated Red Blood Cells % 0 %; Platelet Count 84 K/mm3 (142-424); Red Blood Count 4.60 M/mm3 (4.60-6.20); Red Cell Distribution Width-SD 50.7 fL; White Blood Count 6.1 K/mm3 (4.8-10.8)
[2024-10-16] MEDS: ASPIRIN 325MG TABLET 325 MG PO (10:41)
[2024-10-16 10:45] LABS: Alanine Aminotransferase 65 U/L (12-78); Albumin Level 4.5 g/dl (3.5-5.0); Albumin/Globulin Ratio 1.2 (1.1-1.8); Alkaline Phosphatase 91 U/L (38-126); Anion Gap 13.1 mEq/L (5-15); Aspartate Amino Transferase 65 U/L (17-59); Bilirubin,Total 1.2 mg/dl (0.2-1.3); Blood Urea Nitrogen 17 mg/dl (9-20); Calcium 9.6 mg/dl (8.4-10.2); Carbon Dioxide 24 mmol/L (22.0-30.0); Chloride 109 mmol/L (98-107); Creatinine Clearance Estimated 63 mL/min (50-200); Creatinine,Serum 1.30 mg/dl (0.66-1.25); Estimated Glomerular Filt Rate 55 ml/min (>60); GFR (African American) 66 ML/MIN (>60); Globulin 3.7 g/dL (1.3-3.2); Glucose 167 mg/dl (74-100); Lipase 148 U/L (23-300); Potassium 4.1 mmoL/L (3.5-5.1); Sodium 142 mmol/L (136-145); Total Protein,Serum 8.2 g/dl (6.3-8.2)
[2024-10-16 10:54] LABS: INR 1.08 (0.9-1.1); Prothrombin Time 11.9 seconds (10.1-12.5)
[2024-10-16 11:02] LABS: Troponin I < 0.01 ng/ml (0.00-0.034)
[2024-10-16 12:43] LABS: Hepatitis C Ab Qual. W/ RFX REACTIVE (Negative)
[2024-10-16 13:49] LABS: HIV Combo Retest POSITIVE (Negative)
== END 2024-10-16 12:14 | disposition home or self-care (01) ==
PROVIDERS: Emergency Provider Student in an Organized Health Care Education/Training Program; PCP Internal Medicine
DX: R07.9 Chest pain, unspecified (principal); B20 Human immunodeficiency virus [HIV] disease
CPT/HCPCS: 71045; 80053; 83690; 84484; 85025; 85610; 86803; 87389; 87522; 93005; 99285